=== PATIENT | female | born 1945 | race African-American/Black ===

== ENCOUNTER 2022-03-22 21:33 | Inpatient (IN) | payer MEDICARE, SELFPAY ==
[2022-03-22] VITALS (12 sets, daily range): BP systolic 110–188; BP diastolic 73–133; PULSE 61–109; RESP 12–65; TEMP 36.3; O2SAT 97–100
--- NOTE | ~2022-03-22 | XR_ITS ---
EXAMINATION: XR chest 1V portable DATE: 03/24/2022 05:30 INDICATION: Intubated TECHNIQUE: frontal view of the chest was obtained. COMPARISON: Chest radiograph dated 03/23/2022 FINDINGS: Endotracheal tube tip 1.9 cm above the star. Nasogastric tube with proximal side-port below the gas troesophageal junction and distal tip collimated beyond the inferior margin of the [id number]. Rig ht internal jugular central venous catheter with distal tip in the midsuperior vena cava. Peripheral IV at the left axilla. Persistent consolidation with some air bronchograms in the left lower lung zone. Possible associated small left pleural effusion. Right lung is clear. No pneumothorax or right-sided pleural effusion. Ca rdiomegaly IMPRESSION: 1. Persistent consolidation in the left lower lung zone consistent with atelectasis and/or pneumonia possibly with associated small left pleural effusion. 2. Cardiomegaly. Reviewed, dictated and finalized at location A. IMPRESSION: 1. Persistent consolidation in the left lower lung zone consistent with atelect asis and/or pneumonia possibly with associated small left pleural effusion. 2. Cardiomegaly.
--- NOTE | ~2022-03-22 | XR_ITS ---
EXAMINATION: XR chest 1V portable DATE: 03/26/2022 05:39 INDICATION: Intubated TECHNIQUE: frontal view of the chest was obtained. COMPARISON: Chest radiograph dated 03/25/2022 FINDINGS: Endotracheal tube tip 0.7 cm above the star. Right internal jugular central venous catheter with di stal tip at the caudal superior vena cava. Nasogastric tube extends below the left hemidiaphragm wit h distal tip collimated off the study. Slight increase in opacities at the left lower lung zone and mild residual opacities at the medial ri ght lower lung zone. No pneumothorax or right-sided pleural effusion. Possible left pleural effusion. Cardiomegaly. IMPRESSION: 1. Mild progression in opacities at the bilateral lower lung zones which could represent atelectasis or pneumonia, possibly with associated small left pleural effusion. 2. Cardiomegaly. Reviewed, dictated and finalized at location A.
--- NOTE | ~2022-03-22 | XR_ITS ---
XR chest 1V portable DATE: 04/04/2022 05:53 INDICATION: Respiratory failure TECHNIQUE: Portable AP chest on 04/04/2022 at 0525 hours COMPARISON: 04/03/2022 portable AP chest at 0514 hours FINDINGS: ET tube in satisfactory position 2.7 cm above star. NG tube in stomach. Right internal ju gular central venous catheter tip overlies the proximal superior vena cava. Cardiac megaly. Aortic arch calcification. There is persistent left lower lobe atelectasis and/or consolidation with air bronchograms. Mild pulmonary vascular congestion. There is minimal if any pleural effusion. No pneumothorax. Diffuse osteopenia. IMPRESSION: Cardiomegaly Aortic atherosclerosis Left lower lobe atelectasis and/or consolidation Reviewed, dictated and finalized at location A.
--- NOTE | ~2022-03-22 | XR_ITS ---
EXAMINATION: XR chest 1V portable INDICATION: Cardiac arrest TECHNIQUE: Portable AP chest at 0513 hours COMPARISON: 03/28/2022 FINDINGS: The endotracheal tube ends approximately 2.5 cm above the star. The nasogastric tube is f ollowed as far as the stomach. Its tip is beyond the inferior margin of the radiograph. A right inter nal jugular catheter ends with its tip in the proximal superior vena cava. Cardiomegaly is noted. The re is stable mild pulmonary edema. A small left pleural effusion is unchanged. There is no pneumothor ax. IMPRESSION: 1. Cardiomegaly with stable pulmonary edema. 2. Small left pleural effusion, stable. Reviewed, dictated and finalized at location A.
--- NOTE | ~2022-03-22 | CT_ITS ---
EXAMINATION: CT brain wo con DATE: 03/23/2022 01:34 INDICATION: Status post cardiac arrest TECHNIQUE: Computed tomography (CT) of the head was performed without intravenous contrast. Sagittal and coronal reconstructions were performed. The mA was adjusted according to patient size. Iterative reconstruction technique was employed. The dose-length product was 681.00 mGy-cm. COMPARISON: None FINDINGS: There is prominent intravenous contrast which may be related to prior cardiac catheterization given t he provided history of ST elevation myocardial infarction. There are regions of significantly decreas ed parenchymal attenuation with loss of varner-white matter differentiation in the bilateral occipital lobes, left larger than right consistent with infarcts most likely subacute to chronic. There is smal l region of linear gyral enhancement along the deep aspect of both sides of the sulcus at the left fr ontoparietal region. No acute intracranial hemorrhage or abnormal extra axial fluid collection. Ventr icles are normal and symmetric. No mass/mass effect. The orbits, paranasal sinuses and mastoid air ce lls are normal. IMPRESSION: 1. Small region of gyral enhancement at the left frontoparietal region most likely related to recent cerebral infarction with differential including seizure or migraine, infection in the appropriate cli nical setting or less likely malignancy. 2. Infarcts at the bilateral occipital lobes with degree of decreased attenuation favoring subacute t o chronic. Reviewed, dictated and finalized at location A. IMPRESSION: 1. Small region of gyral enhancement at the left frontoparietal region most lik jerica related to recent cerebral infarction with differential including seizure o r migraine, infection in the appropriate clinical setting or less likely malign jose l. 2. Infarcts at the bilateral occipital lobes with degree of decreased attenuati on favoring subacute to chronic.
--- NOTE | ~2022-03-22 | XR_ITS ---
EXAMINATION: XR chest 1V portable INDICATION: Cardiac arrest TECHNIQUE: Portable AP chest at 0528 hours COMPARISON: 03/31/2022 FINDINGS: The endotracheal tube ends approximately 3.3 cm above the star. The nasogastric tube is f ollowed as far as the stomach. Its tip is beyond the inferior margin of the radiograph. A right inter nal jugular catheter ends with its tip in the proximal superior vena cava. Cardiomegaly is noted. The re are patchy opacities left lung and in the right lung base. There is a small left pleural effusion. No pneumothorax is identified. IMPRESSION: 1. Developing airspace opacities in the left lung and right lung base, consistent with atelectasis ve rsus pneumonia versus pulmonary edema. 2. Cardiomegaly. 3. Small left pleural effusion. Reviewed, dictated and finalized at location A. IMPRESSION: 1. Developing airspace opacities in the left lung and right lung base, consiste nt with atelectasis versus pneumonia versus pulmonary edema. 2. Cardiomegaly. 3. Small left pleural effusion.
--- NOTE | ~2022-03-22 | CT_ITS ---
EXAMINATION: CT brain wo con INDICATION: Anoxic brain injury, cardiac arrest COMPARISON: 03/23/2022 TECHNIQUE: Standard unenhanced head CT. The dose-length product (DLP) was 605.33 mGy-cm. The mA was a djusted according to patient size. Iterative reconstruction technique was employed. FINDINGS: There is no acute intraparenchymal hemorrhage. No evidence of mass lesion. Bilateral occipi griselda lobe infarcts are again noted, left greater than right. There is persistent varner-white differenti ation in parts of the brain with some loss of varner-white differentiation and others. Intracranial giovanny cified cerebral atherosclerosis is noted. There are no extra-axial collections. There is no mass effe ct or midline shift. Changes in the globes are likely from ocular lens surgery. The visualized sinuse s and mastoid air cells are well aerated. IMPRESSION: 1. Some areas with loss of varner-white differentiation suggestive of toxic brain injury. 2. Bilateral occipital lobe infarcts, likely subacute. Reviewed, dictated and finalized at location A.
--- NOTE | ~2022-03-22 | XR_ITS ---
EXAMINATION: XR chest port-a-cath/central DATE: 03/23/2022 03:38 INDICATION: Right internal jugular central venous catheter placement TECHNIQUE: frontal view of the chest was obtained. COMPARISON: Chest radiograph dated 03/22/[address] dated 03/23/2022 FINDINGS: New right internal jugular central venous catheter with distal tip at the caudal superior vena cava. Endotracheal tube tip 1.9 cm above the star. Nasogastric tube with nasogastric tube in the body of the stomach and distal tip collimated off the study. Peripheral IV at the left axilla. Persistent mild decreased left lung volume with opacities at the left lower and medial aspect of the left mid lung zones. No pleural effusion or pneumothorax. Cardiomegaly. Ectatic thoracic aorta. Enlar gement of the central pulmonary arteries consistent with pulmonary arterial hypertension. Visualized bones and soft tissues are unremarkable. IMPRESSION: 1. Lines and tubes in expected positions. 2. Decreased left lung volume with opacities in the mid and lower lung zones which could represent at electasis, aspiration or pneumonia. 3. Cardiomegaly and ectatic aorta. 4. Enlargement of the central pulmonary arteries consistent with pulmonary arterial hypertension. Reviewed, dictated and finalized at location A. IMPRESSION: 1. Lines and tubes in expected positions. 2. Decreased left lung volume with opacities in the mid and lower lung zones wh ich could represent atelectasis, aspiration or pneumonia. 3. Cardiomegaly and ectatic aorta. 4. Enlargement of the central pulmonary arteries consistent with pulmonary awa rial hypertension.
--- NOTE | ~2022-03-22 | XR_ITS ---
EXAMINATION: XR chest 1V portable DATE: 03/25/2022 05:27 INDICATION: Intubated TECHNIQUE: frontal view of the chest was obtained. COMPARISON: Chest radiograph dated 03/24/22 FINDINGS: Endotracheal tube tip 1.9 cm above the star. Right internal jugular central venous catheter with di stal tip at the midsuperior vena cava. Nasogastric tube with proximal side-port in the stomach and di stal tip collimated below the inferior margin of the [id number]. No significant change attending for differences in technique in airspace opacity left lower lung zone . No pneumothorax or definitive pleural effusion. Mild cardiomegaly. IMPRESSION: 1. Persistent airspace opacities in the left lower lung zone which could represent atelectasis or pne umonia. 2. Mild cardiomegaly. Reviewed, dictated and finalized at location A. IMPRESSION: 1. Persistent airspace opacities in the left lower lung zone which could repres ent atelectasis or pneumonia. 2. Mild cardiomegaly.
--- NOTE | ~2022-03-22 | XR_ITS ---
EXAM: XR abdomen NG/feed tube insert HISTORY: OG tube placement COMPARISON: None available FINDINGS: NG tube tip and side port project over the stomach. Normal partially visualized bowel gas pattern. No acute osseous abnormality. IMPRESSION: NG tube, in good position. Reviewed, dictated and finalized at location K. IMPRESSION: NG tube, in good position.
--- NOTE | ~2022-03-22 | XR_ITS ---
r EXAMINATION: XR chest ET placement Exam Date/Time: 03/22/2022 21:40 CDT CLINICAL HISTORY: stemi Comparison: None available. RESULT: Lines, tubes, and devices: Endotracheal tube terminating 1.2 cm above the star. An NG tube termina danielle off the inferior portion of the image. Lungs and pleura: Suboptimal positioning with rotation and low lung volumes. Cardiomediastinal silhouette: Mild aortic ectasia and aortic knob calcification. Heart size normal g iven technique. Other: No acute osseous or upper abdominal finding. IMPRESSION: Well-positioned endotracheal tube. No acute cardiopulmonary process. Reviewed, dictated and finalized at location K.
--- NOTE | ~2022-03-22 | CT_ITS ---
EXAMINATION:CT diagnostic chest wo con DATE: 03/23/2022 01:34 INDICATION: Cardiac arrest. TECHNIQUE: Computed tomography (CT) of the chest was performed without intravenous contrast. Automate d exposure control and iterative reconstruction technique were employed. The dose-length product (DLP ) was 633.14 mGy-cm. COMPARISON: None. FINDINGS: The lungs demonstrate mild atelectasis. No pleural effusion. The thyroid is enlarged. There are nodules in the thyroid measuring up to 10 mm, likely not clinically significant. The endotrachea l tube tip is in expected position above the star. The nasogastric tube tip is in the stomach. Card iomegaly is noted. There are coronary artery calcifications. No pericardial effusion. The central pul monary arteries are enlarged, consistent with pulmonary arterial hypertension. There is ectasia of as cending aorta measuring 4.0 cm. There are cysts in the liver measuring up to 12 mm. There are gallsto grisel in the gallbladder, which is normal in size. There is fat stranding around the pancreas, some of which is high in attenuation consistent with hemorrhage. There is a small volume of hemoperitoneum ad jacent to the spleen. There is subcutaneous fat stranding superficial to the sternum, consistent with hematoma. There is a nondisplaced fracture of the body of the sternum. There are fractures of right 5th and 6th ribs. There is mild thoracic spondylosis. IMPRESSION: 1. Acute fractures of the sternum and right fifth and sixth ribs. 2. Small volume of acute abdominal hemorrhage. Reviewed, dictated and finalized at location D.
--- NOTE | ~2022-03-22 | XR_ITS ---
EXAMINATION: XR chest 1V portable INDICATION: Cardiac arrest, respiratory failure TECHNIQUE: Portable AP chest at 0507 hours COMPARISON: 03/27/2022 FINDINGS: The endotracheal tube ends approximately 2.9 cm above the star. The nasogastric tube is f ollowed as far as the stomach. Its tip is beyond the inferior margin of the radiograph. A right inter nal jugular central venous catheter ends with its tip in the proximal superior vena cava. Cardiomegal y is noted. Mild pulmonary edema has improved. There is a small left pleural effusion. IMPRESSION: 1. Cardiomegaly with improving pulmonary edema. 2. Small left pleural effusion. Reviewed, dictated and finalized at location A.
--- NOTE | ~2022-03-22 | XR_ITS ---
EXAMINATION: XR chest 1V portable INDICATION: Cardiac arrest TECHNIQUE: Portable AP chest at 0512 hours COMPARISON: 03/30/2022 FINDINGS: The endotracheal tube ends approximately 4.4 cm above the star. The nasogastric tube is f ollowed as far as the stomach. Its tip is beyond the inferior margin of the radiograph. A right inter nal jugular catheter ends with its tip in the superior vena cava. A small left pleural effusion is un changed. Cardiomegaly is noted. Pulmonary edema has improved. There is no pneumothorax. There are min imal left basilar airspace opacities. IMPRESSION: 1. Cardiomegaly with improved pulmonary edema. 2. Small left pleural effusion. Reviewed, dictated and finalized at location A.
--- NOTE | ~2022-03-22 | XR_ITS ---
EXAMINATION: XR chest 1V portable INDICATION: Acute respiratory failure, cardiac arrest TECHNIQUE: Portable AP chest at 0510 hours COMPARISON: 03/26/2022 FINDINGS: The endotracheal tube ends approximately 9 mm above the star. The nasogastric tube is fol lowed as far as the stomach. Its tip is beyond the inferior margin of the radiograph. A right interna l jugular catheter ends with its tip in the distal superior vena cava. There is mild diffuse intersti tial pattern. Cardiomegaly is noted. There is no pneumothorax. A small left pleural effusion is prese nt. IMPRESSION: 1. Cardiomegaly with mild pulmonary edema. 2. Small left pleural effusion. Reviewed, dictated and finalized at location A.
--- NOTE | ~2022-03-22 | XR_ITS ---
EXAMINATION: XR chest 1V portable INDICATION: Cardiac arrest TECHNIQUE: Portable AP chest at 0509 hours COMPARISON: 03/29/2022 FINDINGS: The endotracheal tube ends approximately 2.5 cm above the star. The nasogastric tube is i n the stomach. The proximal side port projects just below the gastroesophageal junction. A right inte rnal jugular catheter ends with its tip in the superior vena cava. There is stable cardiomegaly. A sm all left pleural effusion is stable. There is no pneumothorax. Mild pulmonary edema is unchanged. IMPRESSION: 1. Cardiomegaly with stable mild pulmonary edema. 2. Small left pleural effusion. Reviewed, dictated and finalized at location A.
--- NOTE | ~2022-03-22 | XR_ITS ---
XR chest 1V portable DATE: 04/03/2022 05:25 INDICATION: Respiratory failure TECHNIQUE: Portable AP chest on 04/03/2022 at 0514 hours COMPARISON: 04/02/2022 portable AP chest at 0520 hours FINDINGS: ET tube 2.4 cm above star. Right internal jugular central venous catheter tip overlies [place] perior vena cava. NG tube in stomach. Cardiac megaly. Aortic calcification. Cardiomegaly. There is prominent left lower lobe atelectasis osseous or consolidation, with increased retrocardiac density and left lower lobe air bronchograms. Mild infiltrate or atelectasis in the right lower lung. Diffuse osteopenia. Scoliosis and degenerative change of the thoracic spine. IMPRESSION: Left lower lobe atelectasis and/or consolidation Mild infiltrate or atelectasis in the right lower lung Cardiomegaly, aortic atherosclerosis ET and NG tubes in satisfactory position Reviewed, dictated and finalized at location A.
--- NOTE | ~2022-03-22 | US_ITS ---
EXAMINATION: US venous doppler UE RT DATE: 03/29/2022 09:05 INDICATION: Right upper extremity swelling TECHNIQUE: Grayscale ultrasound images without and with compression and Doppler ultrasound images of the right upper extremity veins were obtained. COMPARISON: None. FINDINGS: The right internal jugular vein, subclavian vein, axillary vein, brachial veins, basilic vein, cephal ic vein, radial vein, and ulnar vein are patent. The catheter is noted in the right internal jugular vein. IMPRESSION: 1. No evidence of deep venous thrombosis. Reviewed, dictated and finalized at location A.
--- NOTE | ~2022-03-22 | CT_ITS ---
EXAMINATION: CT abdomen pelvis wo con DATE: 03/26/2022 15:39 INDICATION: Hemoperitoneum. TECHNIQUE: Computed tomography (CT) of the abdomen and pelvis was performed without intravenous contr ast. Automated exposure control and iterative reconstruction technique were employed. The dose-length product was 1484.45 mGy-cm. COMPARISON: Chest CT 03/23/2022 FINDINGS: The visualized portions of the lung bases demonstrate airspace opacities and volume loss in the lower lobes, likely at least predominantly atelectasis. There are small pleural effusions. There is mild atelectasis in lingula. Cardiomegaly is noted. There are coronary artery calcifications. No pericardial effusion. There is a 1.3 cm cyst in the liver. There are gallstones in the gallbladder, w hich is normal in size. The spleen, pancreas, adrenal glands, and kidneys are normal. There are no di lated loops of bowel. The appendix is normal. The nasogastric tube tip is in the stomach. There are n o pathologically enlarged lymph nodes. There is trace ascites. There is a small hematoma superficial to right common femoral artery. There is mild thoracic and lumbar spondylosis. Again seen are fractur es of right fifth and sixth ribs. IMPRESSION: 1. Small pleural effusions. 2. Airspace opacities in the lower lobes with volume loss, likely predominantly atelectasis. Pneumoni a cannot be excluded. 3. Acute fractures of right fifth and sixth ribs again seen. Reviewed, dictated and finalized at location A. IMPRESSION: 1. Small pleural effusions. 2. Airspace opacities in the lower lobes with volume loss, likely predominantly atelectasis. Pneumonia cannot be excluded. 3. Acute fractures of right fifth and sixth ribs again seen.
--- NOTE | ~2022-03-22 | XR_ITS ---
EXAMINATION: XR chest 1V portable INDICATION: Respiratory failure TECHNIQUE: Portable AP chest at 0520 hours COMPARISON: 04/01/2022 FINDINGS: The endotracheal tube ends approximately 3.5 cm above the star. The nasogastric tube is f ollowed as far as the stomach. Its tip is beyond the inferior margin of the radiograph. A right inter nal jugular catheter ends with its tip in the proximal superior vena cava. Cardiomegaly is noted. Bib asilar airspace opacities persist without significant change. There is no pneumothorax. A small left pleural effusion is stable. IMPRESSION: 1. Stable bibasilar airspace opacities, consistent with atelectasis versus pneumonia versus pulmonary edema. 2. Cardiomegaly. 3. Stable small left pleural effusion. Reviewed, dictated and finalized at location A. IMPRESSION: 1. Stable bibasilar airspace opacities, consistent with atelectasis versus pneu monia versus pulmonary edema. 2. Cardiomegaly. 3. Stable small left pleural effusion.
--- NOTE | ~2022-03-22 | US_ITS ---
EXAMINATION: US renal BI DATE: 03/23/2022 11:28 INDICATION: Acute kidney injury. TECHNIQUE: Multiple ultrasound grayscale images of the kidneys were obtained. COMPARISON: Chest CT 03/23/2022 FINDINGS: The right kidney measures 10.0 x 4.1 x 5.3 cm. The left kidney measures 10.1 x 5.1 x 6.0 cm. The kidn eys demonstrate normal parenchymal echogenicity. There is no hydronephrosis. The bladder is not diste nded and not visualized. There are gallstones in the gallbladder, which is normal in size. IMPRESSION: 1. Normal kidneys. No hydronephrosis. Reviewed, dictated and finalized at location B.
--- NOTE | 2022-03-22 21:30 | PC.NURSE ---
2130 pt. to ed via ems w/ cc cardiac arrest. pt. intubated w/ a 7.5 ET tube measuring at 29. 2130 pt. og placed measuring at 60. 2159 pt. given 4000 units heprin IVP VORB ERP Johnathan and 300 mg rectal ASA. 2200 pt. ET tube pulled 2 cm and measuring 27 at the teeth. Og remained intact.
--- NOTE | 2022-03-22 21:35 | ECG_ITS ---
Measurements Intervals [place] Rate: 72 P: MO: 0 QRS: 31 QRSD: 98 T: 141 QT: 475 QTc: 522 Interpretive Statements ATRIAL FIBRILLATION VENTRICULAR PREMATURE COMPLEX LEFT VENTRICULAR HYPERTROPHY WITH ST-T CHANGE ST-T WAVE ABNORMALITY IN ANTEROLATERAL LEADS- CONSIDER ISCHEMIA BASELINE ARTIFACT- I, III ABNORMAL ECG Electronically Signed On 03-23-2022 6:08:26 CDT by Juvenal Lange D.O.
[2022-03-22 21:55] LABS: Basophils Absolute Auto 0.1 K/mm3 (0.0-0.1); Basophils Percent Auto 0.4 % (0.2-1.2); Eosinophils Absolute Auto 0.1 K/mm3 (0-0.3); Eosinophils Percent Auto 0.5 % (0-4.4); Hematocrit 35.7 % (37.0-47.0); Hemoglobin 10.3 g/dL (12.0-15.0); Immature Granulocyte Absolute 0.88 K/mm3 (0.00-0.031); Immature Granulocyte Percent A 6.4 % (0-0.5); Lymphocytes Absolute Auto 4.51 K/mm3 (0.9-3.2); Lymphocytes Percent Auto 32.9 % (18.3-44.2); Mean Corpuscular HGB Conc 28.9 g/dl (32-36); Mean Corpuscular Hemoglobin 21.3 pg (26-34); Mean Corpuscular Volume 73.8 fl (80-100); Mean Platelet Volume 9.9 fl (7.4-10.4); Monocytes Absolute Auto 0.5 K/mm3 (0.1-0.6); Monocytes Percent Auto 3.3 % (2.6-8.5); Neutrophils Absolute Auto 7.7 K/mm3 (1.3-6.7); Neutrophils Percent Auto 56.5 % (45.5-73.1); Platelet Count Result 318 k/mm3 (150-375); Red Blood Count 4.84 M/mm3 (4.2-5.4); Red Cell Distribution Width 16.8 % (11.5-14.5); White Blood Count 13.7 K/mm3 (4.5-10.0)
--- NOTE | 2022-03-22 21:57 | ED.CPR ---
HPI - CPR General Chief Complaint: Cardiac Arrest/CPR Stated Complaint: cardiac arrest History of Present Illness HPI narrative: Patient is a 76-year-old female who presents ER status post cardiac arrest. Patient called her son around 8:11 PM. She told him that she was having chest pain. He came to the house. She did not want to go to the hospital and waited out. She continues to have chest pain. She then went upstairs to use the toilet and then told her son she thought she was going to pass out. Patient collapsed on the ground. She did not have a pulse. 911 was called at 9 PM and an ambulance was dispatched. Bystander CPR was performed at the direction of dispatch. EMS arrived and compressions continued. She was intubated with 7.5 ET tube. Intraosseous access was obtained in the right humerus. Patient was found to be in ventricular fibrillation received defibrillation. She then went into PEA. Patient received 2 rounds of epinephrine. She was then found to have ROSC and capnography improved. According to the son patient has been having dyspnea on exertion for the last 2 months. She was attempting to transfer doctors because she did not like her current primary doctor. He reports she does not have history of known coronary disease. She does have hypertension. She has spotty compliance with medications due to feeling that she experiences side effects from medications. Related Data Home Medications Medication Instructions Recorded Confirmed diltiazem HCl 180 mg PO DAILY 03/23/22 03/23/22 losartan 100 mg PO DAILY 03/23/22 03/23/22 metoprolol succinate 100 mg PO DAILY 03/23/22 03/23/22 Allergies Allergy/AdvReac Type Severity Reaction Status Date / Time aspirin Allergy Hives Verified 03/23/22 00:29 ibuprofen Allergy Hives Verified 03/23/22 00:29 Penicillins Allergy Unknown Verified 03/23/22 00:29 Review of Systems Review of Systems: ROS unobtainable: Yes unobtainable due to medical condition [facility] Past Medical History Medical History (Updated 03/23/22 @ 06:45 by Bimal Mann MD) Hypertension Surgical History Surgical History (Updated 03/22/22 @ 22:06 by Bimal Mann MD) Surgical history unknown Family History Family History (Updated 03/23/22 @ 00:43 by Giselle Tavarez RN) Other Unknown family medical history Social History Social History (Updated 03/22/22 @ 22:06 by Bimal Mann MD) Smoking status: Never smoker Alcohol intake: never Substance use: never Spiritual care concerns: No Exam Narrative: GENERAL: Unresponsive, obese. HEAD: Normocephalic, atraumatic. EYES: Pupils equal round and mid dilated. Not reactive to light. No spontaneous movement of the eyes. ENT: Mucous membranes moist. NECK: Supple. CHEST: Clear to auscultation. No respiratory distress. HEART: Irregular regular rate and rhythm. Normal peripheral pulses. ABDOMEN: Soft, nontender, nondistended. EXTREMITIES: Normal range of motion. No edema. SKIN: Warm, dry, no rash. NEURO: GCS 3 Course Reevaluation(s) Reevaluation #1: STEMI activated based on prehospital EKG which showed ST elevation V1 through V4 with T wave inversions V5 and V6. Discussed case with Dr. aPlma who is in route. Date: 03/22/22 Time: 21:28 Reevaluation #2: Patient's blood pressure climbing. Becoming more responsive. Will start on propofol. Cath team at bedside to take patient. Family has been back to see the patient. Date: 03/22/22 Time: 22:09 Vital Signs Vital signs: Vital Signs Pulse Rate 81 03/22/22 21:34 Respiratory Rate 14 03/22/22 21:34 Blood Pressure 158/133 H 03/22/22 21:34 Pulse Oximetry 97 03/22/22 21:34 Temperature 91.5 F L 03/23/22 06:00 Pulse Rate 55 L 03/23/22 06:00 Respiratory Rate 20 03/23/22 06:00 Blood Pressure 141/82 H 03/23/22 06:00 Pulse Oximetry 98 03/23/22 06:00 MDM - Cardiac Arrest/CPR Lab Data Result diagrams: 03/23/22 03:35 0
[2022-03-22 22:06] LABS: Platelet Estimate Adequate (Adequate)
[2022-03-22 22:07] LABS: Anisocytosis 1+ (NORMAL); Burr Cells 1+ (NORMAL); INR 1.3; Ovalocytes 1+ (NORMAL)
[2022-03-22] MEDS: PROPOFOL IV EMULSION 100 ML 3.41 MG IV CONT (22:12)
[2022-03-22 22:17] LABS: LDL Cholesterol Direct 48 mg/dL
[2022-03-22 22:20] LABS: Troponin I < 0.012 ng/mL (0.000-0.034)
[2022-03-22 22:21] LABS: Alanine Aminotransferase 98 U/L (4-35); Albumin Level 3.6 g/dL (3.5-5.1); Alkaline Phosphatase 116 U/L (38-126); Anion Gap 16 mmol/L (8-16); Aspartate Amino Transferase 158 U/L (14-36); Bilirubin,Total 0.1 mg/dL (0.2-1.3); Blood Urea Nitrogen 17 mg/dL (7-17); Calcium 7.7 mg/dL (8.4-10.2); Carbon Dioxide 16 mmol/L (22-30); Chloride 107 mmol/L (98-107); Cholesterol 111 mg/dL (0-200); Estimated Glomerular Filt Rate 48; Glucose 291 mg/dL (65-110); HDL Direct 27 mg/dL; Potassium 3.8 mmol/L (3.4-5.0); Sodium 139 mmol/L (137-145); Triglycerides 117 mg/dL (<150)
--- NOTE | 2022-03-22 22:22 | PM.IMHP ---
H&P: HPI History of Present Illness Date/Time: 03/22/22 22:22 Chief Complaint: Out of hospital ventricular fibrillation ST-elevation PR Narrative: this is a 76-year-old woman who I was called earlier this evening because of concern regarding acute myocardial infarction. The patient apparently was brought in from home by ambulance. She was according to the chart at home and was complaining of some chest earlier in the evening. She did not wish to come to the hospital. She then collapsed in her home and had no pulse and was not breathing. She did receive some bystander CPR. Upon arrival of EMS she was found to be in ventricular fibrillation. She was resuscitated back into ineffective rhythm and was intubated in the field. I do not have any immediate information regarding how long she was without a pulse/ circulation. Her electrocardiogram appears to show anterior ST elevation and she in that setting is being brought for Emergent angiography. I have no information regarding past medical history in this individual at this time Review of Systems Review of Systems: ROS unobtainable: Yes unobtainable due to endotracheal tube and unobtainable due to medical condition [facility] Past Medical History Medical History (Updated 03/22/22 @ 22:06 by Bimal Mann MD) Hypertension Surgical History Surgical History (Updated 03/22/22 @ 22:06 by Bimal Mann MD) Surgical history unknown Social History Social History (Updated 03/22/22 @ 22:06 by Bimal Mann MD) Smoking status: Never smoker Meds Vital Signs Vital Signs - 24 hr 03/22/22 21:44 03/22/22 21:45 03/22/22 21:46 Temperature 36.3 C L Pulse Rate 80 79 72 Respiratory Rate 21 H 19 12 Blood Pressure 110/73 Pulse Oximetry 97 97 100 03/22/22 21:58 03/22/22 22:00 03/22/22 22:02 Temperature Pulse Rate 61 86 85 Respiratory Rate 21 H 21 H Blood Pressure 179/120 H Pulse Oximetry 100 100 100 03/22/22 22:03 03/22/22 22:07 03/22/22 22:12 Temperature Pulse Rate 86 91 90 Respiratory Rate 21 H 21 H 20 Blood Pressure 183/120 H 188/125 H 182/127 H Pulse Oximetry 100 100 100 Exam Const: Other: intubated elderly lady HENMT: Mouth: Yes moist mucous membranes Eyes: Sclera: sclerae normal Neck: Neck: supple Other: no carotid bruit Resp: Other: few scattered Cardio: Rate: regular rate Rhythm: regular rhythm Other: PMI difficult to palpate no obvious murmur or gallop GI: GI Palp: Yes Soft to palpation Auscultation: normal bowel sounds Skin: General skin exam: normal color Neuro: Other: Obtunded Extrem: General: normal to inspection H&P: Results Labs Labs: Short CBC 03/22/22 Range/Units 21:49 WBC 13.7 H (4.5-10.0) K/mm3 Hgb 10.3 L (12.0-15.0) g/dL Hct 35.7 L (37.0-47.0) % Plt Count 318 (150-375) k/mm3 BMP 03/22/22 21:49 Sodium 139 Potassium 3.8 Chloride 107 Carbon Dioxide 16 L BUN 17 Creatinine 1.30 H Glucose 291 H Calcium 7.7 L Cardiac Enzymes 03/22/22 Range/Units 21:49 Troponin I < 0.012 (0.000-0.034) ng/mL Liver Function 03/22/22 Range/Units 21:49 Total Bilirubin 0.1 L (0.2-1.3) mg/dL AST 158 H (14-36) U/L ALT 98 H (4-35) U/L Alkaline Phosphatase 116 (38-126) U/L Albumin 3.6 (3.5-5.1) g/dL Assessment and Plan Additional Plan out of hospital ventricular fibrillation with ECG following resuscitation concerning for acute anterior wall PR. Patient is being brought for emergency angiography and if appropriate revascularization. Jackson Palma MD [facility]
--- NOTE | 2022-03-22 23:38 | WPDCARDPROC ---
Cardiac Cath Procedure Note Date of procedure:: 03/22/22 Performing physician:: Jackson Palma MD Indication:: ventricular fibrillation ST-elevation ND Brief clinical history:: this is a 76-year-old woman who presented to the emergency room after experiencing some chest pain at her residence followed by loss of consciousness and bystander CPR. Upon arrival of EMS she was in ventricular fibrillation. The patient is intubated in the field and resuscitated into spontaneous circulation. ECG following that appeared to show anterior ST elevation. Patient has had no recent medical care and no further records are available or history is available as she is intubated and on mechanical ventilator support no Procedure Procedure performed:: emergency coronary angiogram emergency PCI left ventriculogram Sedation/Medication given:: patient was on intravenous propofol from the emergency room case start time 10:31 p.m. case end time 11:26 pm Access site:: right femoral artery Estimated blood loss:: 50 cc Procedure note:: patient was brought to the cardiac cathode builder in the emergent setting described above. The right femoral triangle was prepared and draped in the normal fashion. Anesthesia was given with 1% lidocaine infiltrated locally. The patient was sedated with propofol and on mechanical ventilator support. Using the modified Seldinger technique a 6 Japanese sheath was placed into the right femoral artery. I then used a 5 Japanese FL4 diagnostic catheter to engage and inject the left coronary artery in multiple projections. Engaging the right coronary proved to be difficult. I used a 5 Japanese JR4, WRP AR modified catheter unsuccessfully. 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 Following this the cineangiograms were then reviewed and PCI of the LAD was recommended and carried out as detailed below. Prior to this the patient was anticoagulated with a bolus and infusion of Angiomax. She received 180 mg of Brilinta down the NG tube. She had received aspirin in the emergency room. Following attempted PCI as detailed below the guiding catheter and wires were removed from the patient and a 5 Japanese angled pigtail catheter was used to perform a left ventriculogram in the DÍAZ projection and to document left-sided central hemodynamics. The case was then terminated the sheath was sutured into position she was taken to the ICU for recovery. Findings:: Hemodynamics: Central aortic pressure is 146 over 76 left ventricle 1465 end-diastolic pressure 18 there is no gradient on pullback across the aortic valve. Left ventricle: The left ventricle is normal in size the anteroapical segment is akinetic the remainder of the LV contracts well the global ejection fraction I would visually estimate to be 45-50%. The left main coronary artery has a superior takeoff it is very large and widely patent the left anterior descending is a large caliber vessel it is extraordinarily tortuous with a 360 degree turn proximally and then multiple tortuous bends in the remainder of the LAD and a 100% acute occlusion is found weight down near the apical terminal portion of the vessel. This appears to be the culprit for the acute ND. the circumflex is a moderate caliber vessel giving rise to the marginal branches it is codominant and free of significant disease. 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 Intervention: I engaged the left coronary artery with a CLS 3.5 guiding catheter. I attempted to wire the LAD with a Switch Coupler 150 wire was unable to track the wire through the proximal tortuosity. I then used a 0.014 BMW wire and with significant challenge was able to advance the wire through the proximal 360 degree bend around multiple tortuous bends and down to the target lesion. The BMW wire advanced just a short distance across the
[2022-03-23] VITALS (48 sets, daily range): BP systolic 134–186; BP diastolic 78–129; PULSE 23–82; RESP 18–25; TEMP 30.5–35.4; O2SAT 95–100; BMI 35.6; BMI 35.5
--- NOTE | 2022-03-23 00:05 | ADMGEN ---
This patient, Lata Warren, was admitted to Intensive Care Unit-3. Patient/family oriented to hospital policies and general routines including ID bracelet, bed and alarms, visiting hours, pain management, procedures, bathroom and other care routines, personal items, smoking policy, room service/diet, and visiting hours. Information on how to activate the Rapid Response Team has been discussed. Patient/Family are encouraged to report perceived risks to care and to ask questions if they do not understand what they are told or what they should do.
[2022-03-23 00:40] LABS: Glucose Point of Care 335 mg/dl (65-105)
[2022-03-23 01:35] LABS: Creatine Kinase 170 U/L (30-135)
[2022-03-23 01:40] LABS: Lactic Acid Reflex 5.2 mmol/L (0.7-2.0)
[2022-03-23 03:29] LABS: Alveolar/Arterial O2 Gradient 181.9 mmHg; Base Excess ABG -1.1 mEq/l (+/-2.0); Carboxyhemoglobin 0.3 % THb (0-2.0); Fractional Inspired Oxygen 50 %; HCO3 ABG 23.4 mEq/l (22.0-26.0); Methemoglobin ABG 0.3 %THb (0-1.5); Modified Allen's Test Unable to perform; Oxygen Saturation ABG 98.8 % (95.0-100.0); Oxyhemoglobin 97.8 % THb (90.0-100.0); PCO2 ABG 38.2 mmHg (35.0-45.0); PO2 ABG 140.7 mmHg (80.0-100.0); PO2 FiO2 Ratio Arterial Blood 2.81 %; Reduced Hemoglobin 1.6 %THb (0-5.0); Site Drawn LEFT RADIAL; Total Hemoglobin 12.2 g/dL (12.0-18.0); pH ABG 7.405 (7.350-7.450)
[2022-03-23 03:30] LABS: Arterial Blood Gas PEEP 5 cmH2O; Arterial Blood Gas Tidal Volume 450 ml; Arterial Blood Gas Vent Mode CMV; Arterial Blood Gas Ventilator rate 20 /MIN; Device VENTILATOR
--- NOTE | 2022-03-23 03:33 | P.PCNBED_ITS ---
Procedures Central Line Placement Right IJ: Central Line Date: 03/23/22 Central Line Time: 03:33 Performed Emergently - Given emergent patient condition, temporal constraints may have precluded informed consent.: Yes Time Out Performed: Yes Patient Position: trendelenburg Patient placed on monitor/pulse ox: Yes Provider Prep: mask, sterile gown, sterile gloves, Max. sterile barrier precautions and cap Central line prep: 2% Chlorhexidine scrub Local anesthesia used: lidocaine 1% Amount of anesthesia used (ml): 3 Sterile US Technique with sterile gel/sterile probe covers: Yes Central line lumen inserted: triple Austrian: 7 Length (cm): 16 Post Procedure: sutured in place, good blood return, all ports aspirated, flushed, capped and aseptic technique maintained throughout procedure Post procedure x-ray: tip of catheter in good position Patient tolerated procedure: well Complications: none
[2022-03-23 03:49] LABS: Hemoglobin 11.2 g/dL (12.0-15.0); Mean Corpuscular HGB Conc 29.5 g/dl (32-36); Mean Corpuscular Volume 71.2 fl (80-100); Mean Platelet Volume 9.7 fl (7.4-10.4); Platelet Count Result 347 k/mm3 (150-375); Red Blood Count 5.34 M/mm3 (4.2-5.4); Red Cell Distribution Width 16.8 % (11.5-14.5); White Blood Count 15.1 K/mm3 (4.5-10.0)
[2022-03-23] MEDS: levETIRAcetam 1000MG/NACL100ML 1,000 MG/100 ML BAG 400 MG IVPB ×2 (03:53→15:41)
[2022-03-23 04:01] LABS: INR 1.6; Prothrombin Time 18.3 Seconds (11.1-14.7)
[2022-03-23 04:03] LABS: Partial Thromboplastin Time 60.1 SECONDS (22.3-36.8)
[2022-03-23 04:10] LABS: Amphetamine Screen Urine Negative (Negative); Barbiturate Screen Urine Negative (Negative); Benzodiazepines Screen Urine Negative (Negative); Cannabinoid Screen Urine Negative (Negative); Cocaine Screen Urine Negative (Negative); Methadone Screen Urine Negative (Negative); Opiate Screen Urine Negative (Negative); Phencyclidine Screen Urine Negative (Negative)
[2022-03-23 04:14] LABS: Anion Gap 11 mmol/L (8-16); Blood Urea Nitrogen 19 mg/dL (7-17); Calcium 8.2 mg/dL (8.4-10.2); Carbon Dioxide 26 mmol/L (22-30); Chloride 103 mmol/L (98-107); Cholesterol 137 mg/dL (0-200); Creatine Kinase 257 U/L (30-135); Estimated CRCL calculation 40 ml/min; Estimated Glomerular Filt Rate 53; Glucose 269 mg/dL (65-110); HDL Direct 42 mg/dL; Potassium 3.7 mmol/L (3.4-5.0); Sodium 140 mmol/L (137-145); Triglycerides 95 mg/dL (<150)
[2022-03-23 04:22] LABS: Reflex Lactic Acid Yes or No Add Lactic
[2022-03-23 04:25] LABS: LDL Cholesterol Direct 53 mg/dL
[2022-03-23 04:28] LABS: Troponin I 0.077 ng/mL (0.000-0.034)
[2022-03-23] MEDS: INSULIN ASPART (*BKC) 100 UNITS/ML SUB-Q (04:50)
[2022-03-23] MEDS: SODIUM CHLORIDE 0.9% IV 1,000 ML 500 ML IV CONT (04:51)
--- NOTE | 2022-03-23 05:11 | ECG_ITS ---
Measurements Intervals [place] Rate: 82 P: MT: 0 QRS: -6 QRSD: 110 T: 80 QT: 450 QTc: 526 Interpretive Statements ATRIAL FIBRILLATION VENTRICULAR PREMATURE COMPLEXES DELAYED PRECORDIAL R/S TRANSITION LEFT VENTRICULAR HYPERTROPHY BORDERLINE T WAVE ABNORMALITY- LAT/HIGH LAT LEADS BASELINE ARTIFACT- I, II, III ABNORMAL ECG Electronically Signed On 03-23-2022 6:12:31 CDT by Juvenal Lange D.O.
--- NOTE | 2022-03-23 08:00 | ECHO_ITS ---
Patient Info Name: Lata Esteves Young Age: 76 years : 1945 Gender: Female Ht: 62 in Wt: 250 lbs BSA: 2.30 m2 HR: 50 bpm BP: 149 / 81 mmHg Exam Date: 03/23/2022 9:32 AM Exam Location: [facility] Patient Status: Inpatient Admit Date: 03/22/2022 Staff Ordering Physician: Albino Cornejo MD Outpatient Program Coordinator: Gamaliel Lopez, KENNY, RT Attending Provider: Jackson Palma MD Exam Type: CA echo doppler color flow Study Info Indications I21.3 - ST elevation (STEMI) myocardial infarction of unspecified site Complete two-dimensional, color flow and Doppler transthoracic echocardiogram is performed. Strain analysis performed. Summary 1. Complete two-dimensional, color flow and Doppler transthoracic echocardiogram is performed. 2. Borderline LV enlargement, moderate LVH. Moderate LV systolic dysfunction, ejection fraction approximately 40%. Diastolic dysfunction is present. Moderate left atrial enlargement. Mild right atrial enlargement. Normal mitral valve structure, mild mitral regurgitation. Mild aortic valve sclerosis, mild aortic stenosis, valve area 1.7 cm2. Mild tricuspid regurgitation, moderate pulmonary hypertension, RVSP 48 mmHg. Left Ventricle Left ventricular chamber dimension is normal. Left ventricular systolic function is moderately reduced, estimated at 40-45%. There is moderately increased left ventricular wall thickness. Left ventricular septal wall motion is normal. The left ventricular diastolic function is abnormal. Right Ventricle Right ventricular chamber dimension is normal. Right ventricular systolic function is normal. Left Atria Left atrial chamber dimension is moderately enlarged. Right Atria Right atrial chamber dimension is mildly enlarged. Aortic Valve There is mild aortic valve sclerosis. There is mild aortic valve stenosis with a peak velocity of 176 cm/s, mean gradient of 6 mmHg, and aortic valve area of 1.7 cm2. There is no aortic valve regurgitation. Pulmonic Valve The pulmonic valve is normal. There is trace pulmonic regurgitation. Mitral Valve The mitral valve has normal leaflets. There is no mitral valve stenosis. There is mild mitral valve regurgitation. Tricuspid Valve The tricuspid valve leaflets are normal. There is mild tricuspid valve regurgitation. Moderate pulmonary hypertension, estimated pulmonary arterial systolic pressure is 48 mmHg. Pericardium/Pleural The pericardium appears normal. There is no pericardial effusion. Inferior Vena Cava Dilated inferior vena cava with <50% collapse upon inspiration consistent with elevated right atrial pressure, 15 mmHg. Aorta The aortic root size at the sinus of Valsalva is normal. Left Ventricular Outflow Tract Name Value Normal LVOT 2D LVOT Diameter 2.0 cm LVOT Doppler LVOT Peak Gradient 3 mmHg LVOT Mean Gradient 2 mmHg LVOT VTI 20 cm LVOT VTI/AV VTI Ratio 0.5 LVOT Stroke Volume 66 ml LVOT CO 3.5 l/min
[2022-03-23] MEDS: PROPOFOL IV EMULSION 100 ML 27.26 MG IV CONT ×5 (08:16→23:09)
--- NOTE | 2022-03-23 08:17 | PC.NURSE ---
Reported from night RN Propofol was infusing at 20mcg/kg/min. Arrived in room to assess patient and Propofol was infusing at 20mcg/kg/min. Rate was charted at 10mcg/kg/min. New bottle hung, scanned at rate charted to correct increased rate of 40mcg/kg/min per MD order
[2022-03-23] MEDS: CENTRAL LINE FLUSH 10 ML IV PUSH ×4 (08:20→21:06)
[2022-03-23 08:56] LABS: Glucose Point of Care 67 mg/dl (65-105)
[2022-03-23] MEDS: PANTOPRAZOLE SODIUM IV 40 MG VIAL IV PUSH (09:00)
[2022-03-23] MEDS: DEXTROSE 50% 25 GM/50 ML SYRINGE IV PUSH ×2 (09:01→14:36)
[2022-03-23] MEDS: metroNIDAZOLE 500 MG/ISO 100ML 500 MG/100 ML BAG 100 MG IVPB ×3 (09:02→22:12)
[2022-03-23] MEDS: MINERAL OIL/WHITE PETROLATUM OINTMENT 1 APPLIC EACH EYE ×2 (09:02→20:35)
[2022-03-23] MEDS: carvediloL 6.25 MG TABLET PO (09:03)
[2022-03-23] MEDS: ROSUVASTATIN 10 MG TABLET 20 MG PO (09:04)
[2022-03-23] MEDS: LOSARTAN POTASSIUM 12.5 MG TABLET PO (09:04)
--- NOTE | 2022-03-23 09:04 | WPDCNINT ---
Assessment and Plan Assessment and plan (1) Acute respiratory failure: Code(s): J96.00 - Acute respiratory failure, unspecified whether with hypoxia or hypercapnia Status: Acute Assessment and Plan: Acute Respiratory failure secondary to cardiac arrest, possible aspiration pneumonia Continue full mechanical ventilation support to prevent hypoxemia/hypercarbia and end organ damage. ABG, chest CT and PCXR reviewed Low tidal volume ventilation strategy to prevent volutrauma Weaning will depend on patient's neurological improvement Add aztreonam and Flagyl for aspiration pneumonia Blood cultures were all region in ER and are pending Check sputum cultures, procalcitonin level (2) Aspiration pneumonia: Code(s): J69.0 - Pneumonitis due to inhalation of food and vomit Status: Acute Assessment and Plan: see above (3) Cardiac arrest: Code(s): I46.9 - Cardiac arrest, cause unspecified Status: Acute Assessment and Plan: VFib cardiac arrest likely secondary to STEMI now status post partially successful PCI hold antiplatelet and due to intra-abdominal hemorrhage continue statin and low-dose ARB and beta-robinson as her blood If arrhythmia recurs will start amiodarone infusion check echocardiogram (4) ST elevation [place] (STEMI): Code(s): I21.3 - ST elevation (STEMI) myocardial infarction of unspecified site Status: Acute Assessment and Plan: see above (5) Ventricular fibrillation: Code(s): I49.01 - Ventricular fibrillation Status: Acute Assessment and Plan: see above (6) Intra abdominal hemorrhage: Code(s): R58 - Hemorrhage, not elsewhere classified Status: Acute Assessment and Plan: patient's chest CT shows small amount of hemoperitoneum with post multiple possible etiologies patient received CPR leading to sternal and rib fractures, patient also received anticoagulation for her PCI, she had is femoral arterial puncture for PCI and also had some bleeding on removal of sheath requiring extended pressure at this time will monitor hemoglobin serially groin site at this time does not show any swelling hematoma or bruising hold anticoagulation and antiplatelets at this time transfuse if needed check coags later today (7) Rib fracture: Code(s): S22.39XA - Fracture of one rib, unspecified side, initial encounter for closed fracture Status: Acute Assessment and Plan: patient sustained sternal and right 5th and 6th rib fractures which are likely from CPR no flail chest conservative management (8) Acute kidney injury: Code(s): N17.9 - Acute kidney failure, unspecified Status: Acute Assessment and Plan: baseline creatinine is unknown likely prerenal from cardiac arrest in patient also has mild rhabdomyolysis continue IV fluids monitor electrolytes urine output and creatinine check renal ultrasound (9) Hypertension: Code(s): I10 - Essential (primary) hypertension Status: Acute Assessment and Plan: on low-dose Cozaar and beta-robinson blood pressure is in acceptable range as patient is also on propofol sedation (10) Anoxic brain injury: Code(s): G93.1 - Anoxic brain damage, not elsewhere classified Status: Acute Assessment and Plan: on arrival to ICU sedation was discontinued and patient was assessed and she did not demonstrate any proceed with movement suggestive of anoxic brain injury Patient was started on TTM protocol and reached goal temperature 4:00 a.m. On my exam this morning patient exhibiting myoclonic jerking to would confirm neurological injury Head CT IMPRESSION: 1. Small region of gyral enhancement at the left frontoparietal region most likely related to recent cerebral infarction with differential including seizure or migraine, infection in the appropriate clinical setting or less likely malignancy. 2. Infarcts a
[2022-03-23] MEDS: LACTATED RINGERS 1,000 ML 100 ML IV CONT ×2 (09:06→19:43)
--- NOTE | 2022-03-23 09:10 | PM.IMCN ---
Assessment and Plan Assessment and plan (1) Anoxic brain injury: Code(s): G93.1 - Anoxic brain damage, not elsewhere classified Status: Acute Assessment and Plan: Patient was down for approximately 18 minutes prior to ROSC. CT of the brain showing small region of gyral enhancement a left frontoparietal region most likely CVA. Also of note are bilateral occipital lobe infarcts subacute versus chronic. Patient without history of stroke. Aspirin on hold due to patient abdominal hemorrhage. She remains sedated at this time. Continue cooling protocol. Keppra has been started. Wean sedation after cooling protocol is complete. EEG if needed. (2) Ventricular fibrillation: Code(s): I49.01 - Ventricular fibrillation Status: Acute Assessment and Plan: Patient with VFib arrest in the field. CPR started immediately by family and then by EMS. Shocked once which resulted in PEA. Continue to monitor on telemetry. (3) Cardiac arrest: Code(s): I46.9 - Cardiac arrest, cause unspecified Status: Acute Assessment and Plan: Patient with acute cardiac arrest in the field. She underwent left heart catheterization for presumes STEMI in the field. She had balloon angioplasty but no stent placement. She really has been started on Crestor, Cozaar and Coreg. Plavix and aspirin hold at this time. Appreciate Cardiology input. (4) ST elevation [place] (STEMI): Code(s): I21.3 - ST elevation (STEMI) myocardial infarction of unspecified site Status: Acute Assessment and Plan: Inferior STEMI noted by EKG in the field once ROSC was achieved. Left heart catheterization results as mentioned above. Patient is status post balloon angioplasty with some improvement in flow to the distal LAD. Continue medical management. (5) Acute respiratory failure: Code(s): J96.00 - Acute respiratory failure, unspecified whether with hypoxia or hypercapnia Status: Acute Assessment and Plan: As above. Acute respiratory failure related to her cardiac arrest. Patient may have aspirated as well contributing to her acute respiratory failure. Antibiotics have been started for possible aspiration pneumonia. Continue mechanical ventilation. Appreciate arc cutter input. (6) Aspiration pneumonia: Code(s): J69.0 - Pneumonitis due to inhalation of food and vomit Status: Acute Assessment and Plan: CT the chest showing acute fracture of the sternum and right 5th and 6th ribs. Chest CT also shows mild atelectasis but no significant infiltrates. White count elevated but probably more stress response. Patient most likely will be unable to mount a fever. IV antibiotics have been started. Will continue to follow. (7) Atrial fibrillation: Code(s): I48.91 - Unspecified atrial fibrillation Status: Acute Assessment and Plan: EKG showing AFib. Unclear if this was evident prior to the cardiac arrest or due to it. No anticoagulation at this time. Continue rate controlling measures. (8) Intra abdominal hemorrhage: Code(s): R58 - Hemorrhage, not elsewhere classified Status: Acute Assessment and Plan: Chest CT also shows you fat stranding around the pancreas some of which is high in the in attenuation consistent with hemorrhage. There is also a small volume of hemoperitoneum adjacent to the spleen. For this reason, Plavix and aspirin has been held. Wean to monitor H&H closely. Transfuse as needed. If there is a spleen laceration, then she will need to be surgical consult. Check lipase. (9) Rib fracture: Code(s): S22.39XA - Fracture of one rib, unspecified side, initial encounter for closed fracture Status: Acute Assessment and Plan: CT of the chest also shows subcutaneous fat stranding superficial to the sternum consistent with hematoma as well as a nondisplaced fracture of the body of the sternum and fractu
--- NOTE | 2022-03-23 10:11 | ECG_ITS ---
Rate 49 MD 236 QRSd 110 QT 579 QTc 528 --[place]-- P 96 QRS -19 T -35 SINUS BRADYCARDIA WITH FIRST DEGREE AV BLOCK LEFT VENTRICULAR HYPERTROPHY AND ST-T CHANGE ST-T WAVE ABNORMALITY IN ANTEROLATERAL LEADS- CONSIDER ISCHEMIA BASELINE ARTIFACT- I, II, III, AVR, AVL, AVF, V1-V6 ABNORMAL ECG Electronically Signed On 03-23-2022 10:22:38 CDT by Juvenal GHOSH
[2022-03-23 10:21] LABS: Glucose Point of Care 142 mg/dl (65-105)
[2022-03-23] MEDS: AZTREONAM 1 GM in DEXTROSE 5% IN WATER 50 ML 100 ML IVPB ×2 (10:25→16:00)
[2022-03-23 11:06] LABS: Glucose Point of Care 106 mg/dl (65-105)
[2022-03-23 12:14] LABS: Hematocrit 35.3 % (37.0-47.0); Hemoglobin 11.1 g/dL (12.0-15.0); Mean Corpuscular HGB Conc 31.4 g/dl (32-36); Mean Corpuscular Hemoglobin 21.3 pg (26-34); Mean Corpuscular Volume 67.8 fl (80-100); Mean Platelet Volume 9.2 fl (7.4-10.4); Platelet Count Result 324 k/mm3 (150-375); Red Blood Count 5.21 M/mm3 (4.2-5.4); Red Cell Distribution Width 16.4 % (11.5-14.5); White Blood Count 10.5 K/mm3 (4.5-10.0)
[2022-03-23 12:17] LABS: Glucose Point of Care 87 mg/dl (65-105)
[2022-03-23 12:32] LABS: Creatine Kinase 499 U/L (30-135)
[2022-03-23 12:55] LABS: INR 1.2
[2022-03-23 12:56] LABS: Partial Thromboplastin Time 39.2 SECONDS (22.3-36.8)
--- NOTE | 2022-03-23 12:56 | PM.PNCARD ---
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 She was found to have a 100% acute occlusion of the distal LAD. Efforts to revascularize this were not successful and the case ended without intervention to the LAD lesion and she was transferred to the ICU in stable but critical condition. Echo showed mildly reduced systolic function with EF 40%. Currently, her aspirin and plavix are on hold due to small acute abdominal hemorrhage. Coreg has also been held due to bradycardia. Overall prognosis is guarded. (2) Cardiac arrest: Code(s): I46.9 - Cardiac arrest, cause unspecified Status: Acute Assessment and Plan: Witnessed cardiac arrest at home. Did receive CPR from a bystander prior to EMS arrival. Found to be in VF upon arrival to the emergency department. (3) Intra abdominal hemorrhage: Code(s): R58 - Hemorrhage, not elsewhere classified Status: Acute Assessment and Plan: Chest CT shows small amount of hemoperitoneum. Probably secondary to CPR, anticoagulation for PCI. H&H stable thus far. Hold ASA, plavix (4) Anoxic brain injury: Code(s): G93.1 - Anoxic brain damage, not elsewhere classified Status: Acute Assessment and Plan: Out of hospital cardiac arrest with unknown down time, medical record indicates that she received CPR from a bystander at home prior to EMS arrival. She did achieve ROSC after 2 rounds of epinephrine/ACLS protocol. Unfortunately she is exhibiting some signs of anoxic brain injury including myoclonic jerking and no purposeful movements with withdrawal of sedation earlier this morning. On TTM protocol. Management per critical care. Subjective Date/time seen: 03/23/22 12:56 Cardiology follow up for STEMI She remains intubated, sedated, and on TTM protocol. Review of Systems Review of Systems: ROS unobtainable: Yes unobtainable due to endotracheal tube and unobtainable due to medical condition Exam Const: General: ill appearing acutely HENMT: Head: normal to inspection Mouth: Yes moist mucous membranes Other: Tongue swollen and ecchymotic Eyes: General: appearance normal, both eyes and all related structures Sclera: sclerae normal Neck: Neck: supple Other: Triple lumen central line RIJ Chest: Chest palpation & inspection: normal inspection of the chest Resp: Effort & Inspection: other (mechanically ventilated ) Auscultation: clear to auscultation bilaterally (only able to auscultate anteriorally ) Other: Cardio: Rate: bradycardic Rhythm: regular rhythm Heart sounds: no murmurs GI: Inspection: abdominal wall ecchymosis Auscultation: normal bowel sounds Urinary Catheter: Urinary Catheter: patent and draining Skin: General skin exam: normal color Other: Groin arterial insertion site free from bleeding, hematoma Neuro: General: No patient oriented x3 Speech: No normal speech Motor exam (neuro): Motor abnormalites present myoclonus Other: Intubated and sedated Extrem: General: normal to inspection Psych: Appearance: grossly abnormal Mental Status: mental status grossly abnormal Objective Data Vital Signs Vital Signs: Vital Signs - 24 hr 03/22/22 21:34 03/22/22 21:44 03/22/22 21:45 Temperature 36.3 C L Pulse Rate 81 80 69 Respiratory Rate 14 21 H 14 Blood Pressure 158/133 H 110/73 Pulse Oximetry 97 97 97 03/22/22 21:46 03/22/22 21:58 03/22/22 22:00 Temperature Pulse Rate 72 61 85 Respiratory Rate 12 14 Blood Pressure 110/73 179/120 H Pulse Oximetry 100 100 100 03/22/22 22:02 03/22/22 22:03 03/22/22 22:05 Temperature Pulse Rate 85 86 87 Respiratory Rate 21 H 21 H 14 Blood Pressure
[2022-03-23 13:17] LABS: Lipase 58 U/L (23-300)
[2022-03-23 13:26] LABS: Procalcitonin 0.6 ng/mL
[2022-03-23 13:42] LABS: Glucose Point of Care 86 mg/dl (65-105)
[2022-03-23 14:02] LABS: Fibrinogen 470 mg/dl (215-510)
[2022-03-23] MEDS: MIDAZOLAM HCL (*CRX) 2 MG/2 ML VIAL 4 MG IV PUSH (14:14)
[2022-03-23] MEDS: MIDAZOLAM 100MG/NS 100ML(*CRX) 100 MG/100 ML BAG IV CONT (14:14)
[2022-03-23 14:31] LABS: Glucose Point of Care 73 mg/dl (65-105)
[2022-03-23 15:41] LABS: Glucose Point of Care 141 mg/dl (65-105)
--- NOTE | 2022-03-23 16:00 | ECG_ITS ---
Measurements Intervals [place] Rate: 52 P: [place]: 0 QRS: -25 QRSD: 106 T: 267 QT: 575 QTc: 538 Interpretive Statements SINUS RHYTHM WITH FIRST DEGREE AV BLOCK LEFT VENTRICULAR HYPERTROPHY AND ST-T CHANGE ST-T WAVE ABNORMALITY IN ANTEROLAT/INF LEADS- CONSIDER ISCHEMIA BASELINE ARTIFACT- II, III, AVR, AVL, AVF, V1-V6 ABNORMAL ECG Electronically Signed On 03-23-2022 16:23:31 CDT by Juvenal Lange D.O.
[2022-03-23 16:33] LABS: Glucose Point of Care 107 mg/dl (65-105)
[2022-03-23 17:30] LABS: Glucose Point of Care 86 mg/dl (65-105)
[2022-03-23 17:43] LABS: Hematocrit 35.2 % (37.0-47.0); Hemoglobin 10.8 g/dL (12.0-15.0); Mean Corpuscular HGB Conc 30.7 g/dl (32-36); Mean Corpuscular Volume 68.3 fl (80-100); Mean Platelet Volume 9.1 fl (7.4-10.4); Platelet Count Result 297 k/mm3 (150-375); Red Blood Count 5.15 M/mm3 (4.2-5.4); Red Cell Distribution Width 16.4 % (11.5-14.5); White Blood Count 11.5 K/mm3 (4.5-10.0)
[2022-03-23 17:53] LABS: Lactic Acid Reflex 1.6 mmol/L (0.7-2.0)
[2022-03-23 17:54] LABS: Anion Gap 10 mmol/L (8-16); Blood Urea Nitrogen 17 mg/dL (7-17); Calcium 8.2 mg/dL (8.4-10.2); Carbon Dioxide 23 mmol/L (22-30); Chloride 107 mmol/L (98-107); Creatine Kinase 622 U/L (30-135); Estimated CRCL calculation 58 ml/min; Estimated Glomerular Filt Rate > 60; Glucose 80 mg/dL (65-110); Magnesium 1.9 mg/dL (1.6-2.3); Sodium 140 mmol/L (137-145)
[2022-03-23 18:18] LABS: Glucose Point of Care 81 mg/dl (65-105)
[2022-03-23 19:59] LABS: Glucose Point of Care 72 mg/dl (65-105)
[2022-03-23] MEDS: DEXTROSE 5%/0.45% SOD CHL 1,000 ML 100 ML IV CONT (20:28)
[2022-03-23 21:05] LABS: Glucose Point of Care 85 mg/dl (65-105)
[2022-03-23] MEDS: KCL 20 MEQ/SW 100 ML 100 ML 50 MEQ IVPB (21:06)
[2022-03-23 22:19] LABS: Glucose Point of Care 126 mg/dl (65-105)
[2022-03-23 23:19] LABS: Glucose Point of Care 144 mg/dl (65-105)
[2022-03-23 23:42] LABS: Creatine Kinase 633 U/L (30-135)
[2022-03-23 23:43] LABS: Lactic Acid Reflex 1.2 mmol/L (0.7-2.0)
[2022-03-24] VITALS (40 sets, daily range): BP systolic 94–142; BP diastolic 62–79; PULSE 50–87; RESP 16–30; TEMP 32.2–38; O2SAT 97–100
[2022-03-24 00:30] LABS: Glucose Point of Care 106 mg/dl (65-105)
[2022-03-24] MEDS: AZTREONAM 1 GM in DEXTROSE 5% IN WATER 50 ML 100 ML IVPB ×3 (01:13→16:34)
[2022-03-24 01:19] LABS: Glucose Point of Care 114 mg/dl (65-105)
[2022-03-24 01:27] LABS: Hematocrit 34.4 % (37.0-47.0); Hemoglobin 10.7 g/dL (12.0-15.0); Mean Corpuscular HGB Conc 31.1 g/dl (32-36); Mean Corpuscular Hemoglobin 21.2 pg (26-34); Mean Corpuscular Volume 68.3 fl (80-100); Mean Platelet Volume 9.3 fl (7.4-10.4); Platelet Count Result 305 k/mm3 (150-375); Red Blood Count 5.04 M/mm3 (4.2-5.4); Red Cell Distribution Width 16.5 % (11.5-14.5); White Blood Count 11.7 K/mm3 (4.5-10.0)
[2022-03-24 02:14] LABS: Glucose Point of Care 120 mg/dl (65-105)
[2022-03-24] MEDS: PROPOFOL IV EMULSION 100 ML 30.67 MG IV CONT ×2 (03:04→06:58)
[2022-03-24 03:10] LABS: Glucose Point of Care 116 mg/dl (65-105)
[2022-03-24] MEDS: levETIRAcetam 1000MG/NACL100ML 1,000 MG/100 ML BAG 400 MG IVPB ×2 (04:12→16:34)
[2022-03-24 05:08] LABS: Alveolar/Arterial O2 Gradient 104.2 mmHg; Base Excess ABG -0.1 mEq/l (+/-2.0); Carboxyhemoglobin 0.1 % THb (0-2.0); Fractional Inspired Oxygen 30 %; HCO3 ABG 20.6 mEq/l (22.0-26.0); Methemoglobin ABG 0.3 %THb (0-1.5); Oxygen Content ABG 16.7 %vol (16.0-22.0); Oxygen Saturation ABG 97.4 % (95.0-100.0); Oxyhemoglobin 96.4 % THb (90.0-100.0); PO2 FiO2 Ratio Arterial Blood 2.73 %; Reduced Hemoglobin 3.2 %THb (0-5.0); Total Hemoglobin 12.3 g/dL (12.0-18.0)
[2022-03-24 05:09] LABS: Glucose Point of Care 117 mg/dl (65-105)
[2022-03-24 05:09] LABS: Glucose Point of Care 110 mg/dl (65-105)
[2022-03-24 05:09] LABS: pH ABG 7.559 (7.350-7.450)
[2022-03-24 05:10] LABS: Arterial Blood Gas PEEP 5 cmH2O; Arterial Blood Gas Tidal Volume 450 ml; Arterial Blood Gas Vent Mode CMV; Arterial Blood Gas Ventilator rate 20 /MIN; Device VENTILATOR; Modified Allen's Test Pass; PCO2 ABG 23.6 mmHg (35.0-45.0); Site Drawn LEFT RADIAL
[2022-03-24 06:02] LABS: Hematocrit 32.7 % (37.0-47.0); Hemoglobin 10.4 g/dL (12.0-15.0); Mean Corpuscular HGB Conc 31.8 g/dl (32-36); Mean Corpuscular Hemoglobin 21.6 pg (26-34); Mean Platelet Volume 9.2 fl (7.4-10.4); Platelet Count Result 283 k/mm3 (150-375); Red Blood Count 4.81 M/mm3 (4.2-5.4); Red Cell Distribution Width 15.8 % (11.5-14.5); White Blood Count 11.7 K/mm3 (4.5-10.0)
[2022-03-24] MEDS: DEXTROSE 5%/0.45% SOD CHL 1,000 ML 100 ML IV CONT ×2 (06:09→20:04)
[2022-03-24 06:12] LABS: Lactic Acid Reflex 1.4 mmol/L (0.7-2.0)
[2022-03-24] MEDS: CENTRAL LINE FLUSH 10 ML IV PUSH ×4 (06:12→21:47)
[2022-03-24] MEDS: metroNIDAZOLE 500 MG/ISO 100ML 500 MG/100 ML BAG 100 MG IVPB ×3 (06:12→21:46)
[2022-03-24 06:17] LABS: Alanine Aminotransferase 112 U/L (4-35); Albumin Level 3.2 g/dL (3.5-5.1); Alkaline Phosphatase 107 U/L (38-126); Anion Gap 8 mmol/L (8-16); Aspartate Amino Transferase 181 U/L (14-36); Bilirubin,Total 0.2 mg/dL (0.2-1.3); Blood Urea Nitrogen 16 mg/dL (7-17); Calcium 7.8 mg/dL (8.4-10.2); Carbon Dioxide 23 mmol/L (22-30); Chloride 106 mmol/L (98-107); Creatine Kinase 533 U/L (30-135); Estimated CRCL calculation 60 ml/min; Estimated Glomerular Filt Rate > 60; Glucose 128 mg/dL (65-110); Magnesium 1.6 mg/dL (1.6-2.3); Potassium 2.8 mmol/L (3.4-5.0); Sodium 137 mmol/L (137-145)
[2022-03-24 06:20] LABS: Glucose Point of Care 109 mg/dl (65-105)
[2022-03-24 07:05] LABS: Glucose Point of Care 114 mg/dl (65-105)
[2022-03-24] MEDS: CALCIUM GLUC 2,000 MG/NS 100ML 2,000 MG/100 ML BAG 100 MG IVPB (07:42)
[2022-03-24] MEDS: KCL 40 MEQ/WATER 100 ML 100 ML 25 ML IVPB (07:43)
[2022-03-24] MEDS: MAGNESIUM SULF 2 GM/WATER 50ML 2 GM/50 ML BAG IVPB (07:46)
--- NOTE | 2022-03-24 08:08 | WPDINTPN ---
Progress Note: A&P Assessment and Plan (1) Acute respiratory failure: Code(s): J96.00 - Acute respiratory failure, unspecified whether with hypoxia or hypercapnia Status: Acute Assessment and Plan: Acute Respiratory failure secondary to cardiac arrest, possible aspiration pneumonia Continue full mechanical ventilation support to prevent hypoxemia/hypercarbia and end organ damage. ABG, chest CT and PCXR reviewed Decrease tidal volume to 400 and respiratory rate to 16 will repeat ABG later today Weaning will depend on patient's neurological improvement continue aztreonam and Flagyl for aspiration pneumonia Blood cultures were all region in ER and are pending Sputum cultures pending, procalcitonin level 0.6 (2) Aspiration pneumonia: Code(s): J69.0 - Pneumonitis due to inhalation of food and vomit Status: Acute Assessment and Plan: see above (3) Cardiac arrest: Code(s): I46.9 - Cardiac arrest, cause unspecified Status: Acute Assessment and Plan: VFib cardiac arrest likely secondary to STEMI now status post partially successful PCI continue to hold antiplatelet and due to intra-abdominal hemorrhage for another 24 hours continue statin and low-dose ARB and beta-robinson as her blood If arrhythmia recurs will start amiodarone infusion Echocardiogram showed Borderline LV enlargement, moderate LVH. Moderate LV systolic dysfunction, ejection fraction approximately 40%. Diastolic dysfunction is present. Moderate left atrial enlargement. Mild right atrial enlargement. Normal mitral valve structure, mild mitral regurgitation. Mild aortic valve sclerosis, mild aortic stenosis, valve area 1.7 cm2. Mild tricuspid regurgitation, moderate pulmonary hypertension, RVSP 48 mmHg. (4) ST elevation [place] (STEMI): Code(s): I21.3 - ST elevation (STEMI) myocardial infarction of unspecified site Status: Acute Assessment and Plan: see above (5) Ventricular fibrillation: Code(s): I49.01 - Ventricular fibrillation Status: Acute Assessment and Plan: see above (6) Intra abdominal hemorrhage: Code(s): R58 - Hemorrhage, not elsewhere classified Status: Acute Assessment and Plan: patient's chest CT shows small amount of hemoperitoneum with post multiple possible etiologies patient received CPR leading to sternal and rib fractures, patient also received anticoagulation for her PCI, she had is femoral arterial puncture for PCI and also had some bleeding on removal of sheath requiring extended pressure at this time will monitor hemoglobin serially which has been stable groin site at this time does not show any swelling hematoma or bruising hold anticoagulation and antiplatelets for another 24 hours transfuse if needed Coags were in acceptable range (7) Rib fracture: Code(s): S22.39XA - Fracture of one rib, unspecified side, initial encounter for closed fracture Status: Acute Assessment and Plan: patient sustained sternal and right 5th and 6th rib fractures which are likely from CPR no flail chest conservative management (8) Acute kidney injury: Code(s): N17.9 - Acute kidney failure, unspecified Status: Acute Assessment and Plan: baseline creatinine is unknown likely prerenal from cardiac arrest in patient also has mild rhabdomyolysis improved with IV fluids monitor electrolytes urine output and creatinine normal renal ultrasound (9) Hypertension: Code(s): I10 - Essential (primary) hypertension Status: Acute Assessment and Plan: on low-dose Cozaar and beta-robinson blood pressure is in acceptable range as patient is also on propofol sedation (10) Anoxic brain injury: Code(s): G93.1 - Anoxic brain damage, not elsewhere classified Status: Acute Assessment and Plan: on arrival to ICU sedation was discontinued and patient was assessed and she
[2022-03-24 08:10] LABS: Glucose Point of Care 107 mg/dl (65-105)
--- NOTE | 2022-03-24 08:57 | PM.IMPN ---
Progress Note: A&P Assessment and Plan (1) Anoxic brain injury: Code(s): G93.1 - Anoxic brain damage, not elsewhere classified Status: Acute Assessment and Plan: Patient was down for approximately 18 minutes prior to ROSC. Brain CT showing small region of gyral enhancement at the left frontoparietal region most likely CVA. Also of note are bilateral occipital lobe infarcts subacute versus chronic. Patient without history of stroke. She has completed the cooling protocol. Aspirin and Plavix on hold due to patient abdominal hemorrhage. She remains sedated at this time. Continue Keppra. EEG ordered. Repeat CT brain ordered. Neurology consulted. Wean sedation when able. (2) Ventricular fibrillation: Code(s): I49.01 - Ventricular fibrillation Status: Acute Assessment and Plan: Patient with VFib arrest in the field. CPR started immediately by family and then by EMS. Shocked once which resulted in PEA. [place] related to STEMI/ischemia. Having runs of NSVT. Continue Coreg. Continue to monitor on telemetry. Appreciate Cardiology input. (3) Cardiac arrest: Code(s): I46.9 - Cardiac arrest, cause unspecified Status: Acute Assessment and Plan: Patient with acute cardiac arrest in the field. STEMI called in the field and patient underwent left heart catheterization on arrival. She had balloon angioplasty but no stent placement to the distal LAD. Continue Crestor, Cozaar and Coreg. Plavix and aspirin on hold at this time due to intra-abdominal hemorrhage. Appreciate Cardiology input. (4) ST elevation [place] (STEMI): Code(s): I21.3 - ST elevation (STEMI) myocardial infarction of unspecified site Status: Acute Assessment and Plan: Inferior STEMI noted by EKG in the field once ROSC was achieved. Left heart catheterization on admission with single-vessel CAD with acute LA with total acute occlusion of the terminal apical portion of the LAD. Very tortuous LAD, anomalous non-diseased RCA and non-diseased LCx. Patient is status post balloon angioplasty with some improvement in flow to the distal LAD. Echo showing EF 40-45% and diastolic dysfunction, moderate LAE, mild valvular disease and moderate pulmonary HTN. Continue medical management. (5) Acute respiratory failure: Code(s): J96.00 - Acute respiratory failure, unspecified whether with hypoxia or hypercapnia Status: Acute Assessment and Plan: As above. Acute respiratory failure related to her cardiac arrest. Patient may have aspirated as well contributing to her acute respiratory failure. She remains on abx for possible aspiration pneumonia. Continue mechanical ventilation. Appreciate mergers and acquisitions associate input. (6) Aspiration pneumonia: Code(s): J69.0 - Pneumonitis due to inhalation of food and vomit Status: Acute Assessment and Plan: CT the chest showing acute fracture of the sternum and right 5th and 6th ribs. Chest CT also shows mild atelectasis but no significant infiltrates. White count mildly elevated but stable at 11K. Patient most likely was unable to mount a fever. Continue IV antibiotics with Flagyl and Aztreonam. Will continue to follow. (7) Atrial fibrillation: Code(s): I48.91 - Unspecified atrial fibrillation Status: Acute Assessment and Plan: EKG showing AFib. Unclear if this was evident prior to the cardiac arrest or due to it. She has converted to NSR now. No anticoagulation at this time. Echo noted but no obvious thrombus. Continue Coreg. (8) Intra abdominal hemorrhage: Code(s): R58 - Hemorrhage, not elsewhere classified Status: Acute Assessment and Plan: Chest CT also shows fat stranding around the pancreas consistent with hemorrhage. Lipase normal. There is also a small volume of hemoperitoneum adjacent to the spleen. For this reason, Plavix and aspirin has been held. Hgb stable. Monitor H&H closely. Transfuse as need
[2022-03-24] MEDS: MINERAL OIL/WHITE PETROLATUM OINTMENT 1 APPLIC EACH EYE ×2 (09:40→20:06)
[2022-03-24] MEDS: PANTOPRAZOLE SODIUM IV 40 MG VIAL IV PUSH (09:40)
[2022-03-24] MEDS: ROSUVASTATIN 10 MG TABLET 20 MG PO (09:41)
[2022-03-24] MEDS: LOSARTAN POTASSIUM 12.5 MG TABLET PO (09:41)
[2022-03-24] MEDS: carvediloL 3.125 MG TABLET PO ×2 (09:41→20:13)
[2022-03-24 09:50] LABS: Glucose Point of Care 113 mg/dl (65-105)
--- NOTE | 2022-03-24 09:58 | PM.PNCARD ---
Progress Note: A&P Additional Plan 76-year-old lady following apical myocardial infarction which was complicated unfortunately by out of hospital ventricular fibrillation. Despite rapid resuscitation she clearly has a significant anoxic cerebral insult. Evaluation of this is underway now with EEG. Anti-platelet therapy has been placed on hold because of abdominal hematoma resulting from CPR followed by systemic anticoagulation and anti-platelet therapy. Prognosis is obviously very poor given this current situation. Jackson Palma MD [facility] Subjective Date/time seen: 03/24/22 09:58 Interval history: 76-year-old lady with: Out of hospital ventricular fibrillation complicating distal anterior wall LA it out at the apex. Patient was brought for emergency revascularization on presentation following resuscitation and intubation in the field. Partially successful procedure due to extreme tortuosity in the LAD. No other coronary disease was found. 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 CT scan performed this morning. EEG has been ordered following completion of cooling/hypothermia protocol. Intubated on the ventilator she exhibiting myoclonic jerking. Exam Const: General: ill appearing acutely Orientation/consciousness: No patient oriented x3 Other: intubated elderly lady Exhibiting myoclonic jerking. HENMT: Head: normal to inspection Mouth: Yes moist mucous membranes Other: Tongue swollen and ecchymotic Eyes: General: appearance normal, both eyes and all related structures Sclera: sclerae normal Neck: Neck: supple Other: Triple lumen central line RIJ Chest: Chest palpation & inspection: normal inspection of the chest Resp: Effort & Inspection: other (mechanically ventilated ) Auscultation: clear to auscultation bilaterally (only able to auscultate anteriorally ) Other: Cardio: Rate: bradycardic Rhythm: regular rhythm Heart sounds: no murmurs Other: PMI difficult to palpate no obvious murmur or gallop GI: Inspection: abdominal wall ecchymosis Auscultation: normal bowel sounds Urinary Catheter: Urinary Catheter: patent and draining Skin: General skin exam: normal color Other: Groin arterial insertion site free from bleeding, hematoma Neuro: General: No patient oriented x3 Speech: No normal speech Motor exam (neuro): Motor abnormalites present myoclonus Other: Intubated and sedated Extrem: General: normal to inspection Psych: Appearance: grossly abnormal Mental Status: mental status grossly abnormal Objective Data Vital Signs Vital Signs: Vital Signs - 24 hr 03/23/22 10:00 03/23/22 10:25 03/23/22 10:30 Temperature 33.8 C L Pulse Rate 80 49 L 48 L Respiratory Rate 20 20 Blood Pressure 147/83 H Pulse Oximetry 98 98 03/23/22 11:00 03/23/22 12:00 03/23/22 13:00 Temperature 33.2 C L 32.7 C L 33.2 C L Pulse Rate 49 L 44 L 49 L Respiratory Rate 20 20 20 Blood Pressure 143/100 H 136/86 140/84 Pulse Oximetry 97 98 97 03/23/22 13:47 03/23/22 13:53 03/23/22 14:00 Temperature 33.7 C L Pulse Rate 53 L 54 L 54 L Respiratory Rate 20 20 Blood Pressure 135/86 Pulse Oximetry 98 95 03/23/22 14:14 03/23/22 14:36 03/23/22 14:40 Temperature Pulse Rate 57 L 57 L 55 L Respiratory Rate 20 20 20 Blood Pressure Pulse Oximetry 03/23/22 15:00 03/23/22 16:00 03/23/22 16:42 Temperature 34.3 C L 33.8 C L Pulse Rate 54 L 52 L 50 L Respiratory Rate 20 20 Blood Pressure 143/78 H 134/86 Pulse Oximetry 97 97 97 03/23/22 17:00 03/23/22 17:37 03/23/22 17:38 Temperature 33.9 C L Pulse Rate 50 L 48 L 49 L Respiratory Rate 20 20 20 Blood Pressure 143/81 H Pulse Oximetry 97 03/23/22 18:00 03/23/22 18:25 03/23/22 18:52 Temperature 33.6 C L Pulse Rate 51 L 57 L 56 L Respiratory Rate 20 20 20 Blood Pressure 146
[2022-03-24 10:31] LABS: Fractional Inspired Oxygen 30 %; HCO3 ABG 20.6 mEq/l (22.0-26.0); Oxygen Content ABG 16.3 %vol (16.0-22.0); Oxygen Saturation ABG 97.7 % (95.0-100.0); Oxyhemoglobin 96.7 % THb (90.0-100.0); PCO2 ABG 31.9 mmHg (35.0-45.0); PO2 ABG 99.4 mmHg (80.0-100.0); PO2 FiO2 Ratio Arterial Blood 3.31 %; Total Hemoglobin 11.9 g/dL (12.0-18.0); pH ABG 7.427 (7.350-7.450)
[2022-03-24 10:32] LABS: Arterial Blood Gas PEEP 5 cmH2O; Arterial Blood Gas Tidal Volume 400 ml; Arterial Blood Gas Vent Mode CMV; Arterial Blood Gas Ventilator rate 16 /MIN; Device VENTILATOR; Modified Allen's Test Pass; Site Drawn LEFT RADIAL
[2022-03-24 11:03] LABS: Glucose Point of Care 115 mg/dl (65-105)
--- NOTE | 2022-03-24 11:41 | PCFNICU ---
ICU Rounding Note: Pt current nutrition is Nutrition recommendation: Last recorded weight is 102 kg. Bowel Motility: No BM reported Labs Reviewed:Glu 128,K 2.8,Alb 3.2,Hct 32.7,Hgb 10.4 Meds Noted:Propofol 17.04 az=235 kcals, Keppra, Coreg, Crestor, Protonix, Versed, Flagyl Skin: WNL Additional Notes: Patient remains on mechanical vent, tube feedings of Vital AF 1.2 started today at 20 ml/hr over 22 hours. Propofol infusion has decreased from 45 mics to 25 mics. Recommend goal rate of tube feeding to increase to 40 ml/hr over 22 hours, providing 1506 kcals/66 gms protein/714 ml water. Free water flush 30 ml q 4 hours. Plans for EEG today. Will monitor daily in ICU rounds and reassess every Tuesday and Tuesday.
[2022-03-24 12:07] LABS: Hematocrit 33.5 % (37.0-47.0); Hemoglobin 10.5 g/dL (12.0-15.0); Mean Corpuscular HGB Conc 31.3 g/dl (32-36); Mean Corpuscular Hemoglobin 21.4 pg (26-34); Mean Corpuscular Volume 68.4 fl (80-100); Mean Platelet Volume 9.3 fl (7.4-10.4); Platelet Count Result 300 k/mm3 (150-375); Red Cell Distribution Width 16.3 % (11.5-14.5); White Blood Count 14.9 K/mm3 (4.5-10.0)
[2022-03-24 12:18] LABS: Anion Gap 5 mmol/L (8-16); Blood Urea Nitrogen 17 mg/dL (7-17); Calcium 8.3 mg/dL (8.4-10.2); Carbon Dioxide 24 mmol/L (22-30); Chloride 106 mmol/L (98-107); Estimated CRCL calculation 48 ml/min; Estimated Glomerular Filt Rate > 60; Glucose 137 mg/dL (65-110); Potassium 3.9 mmol/L (3.4-5.0); Sodium 135 mmol/L (137-145)
[2022-03-24] MEDS: PROPOFOL IV EMULSION 100 ML 20.45 MG IV CONT (12:30)
[2022-03-24 13:21] LABS: Glucose Point of Care 112 mg/dl (65-105)
[2022-03-24 16:05] LABS: Glucose Point of Care 72 mg/dl (65-105)
[2022-03-24 18:09] LABS: Glucose Point of Care 80 mg/dl (65-105)
[2022-03-24] MEDS: PROPOFOL IV EMULSION 100 ML 17.04 MG IV CONT (18:40)
[2022-03-24] MEDS: MIDAZOLAM 100MG/NS 100ML(*CRX) 100 MG/100 ML BAG IV CONT (20:42)
[2022-03-24 23:29] LABS: Glucose Point of Care 93 mg/dl (65-105)
[2022-03-25] VITALS (23 sets, daily range): BP systolic 117–147; BP diastolic 63–95; PULSE 69–141; RESP 16–28; TEMP 36.6–38.5; O2SAT 98–100
[2022-03-25] MEDS: AZTREONAM 1 GM in DEXTROSE 5% IN WATER 50 ML 100 ML IVPB ×3 (00:29→16:02)
[2022-03-25 00:41] LABS: Hematocrit 31.6 % (37.0-47.0); Hemoglobin 9.9 g/dL (12.0-15.0); Mean Corpuscular HGB Conc 31.3 g/dl (32-36); Mean Corpuscular Hemoglobin 21.4 pg (26-34); Mean Corpuscular Volume 68.4 fl (80-100); Mean Platelet Volume 9.2 fl (7.4-10.4); Platelet Count Result 293 k/mm3 (150-375); Red Blood Count 4.62 M/mm3 (4.2-5.4); Red Cell Distribution Width 16.7 % (11.5-14.5); White Blood Count 14.7 K/mm3 (4.5-10.0)
[2022-03-25] MEDS: PROPOFOL IV EMULSION 100 ML 17.04 MG IV CONT ×4 (01:07→20:10)
[2022-03-25] MEDS: levETIRAcetam 1000MG/NACL100ML 1,000 MG/100 ML BAG 400 MG IVPB ×2 (04:15→15:49)
[2022-03-25 05:02] LABS: Alveolar/Arterial O2 Gradient 59.2 mmHg; Base Excess ABG -2.5 mEq/l (+/-2.0); Carboxyhemoglobin 0.3 % THb (0-2.0); Fractional Inspired Oxygen 30 %; HCO3 ABG 21.7 mEq/l (22.0-26.0); Methemoglobin ABG 0.2 %THb (0-1.5); Oxygen Content ABG 18.1 %vol (16.0-22.0); Oxygen Saturation ABG 98.2 % (95.0-100.0); Oxyhemoglobin 97.4 % THb (90.0-100.0); PCO2 ABG 35.7 mmHg (35.0-45.0); PO2 ABG 112.8 mmHg (80.0-100.0); PO2 FiO2 Ratio Arterial Blood 3.76 %; Reduced Hemoglobin 2.1 %THb (0-5.0); Total Hemoglobin 13.1 g/dL (12.0-18.0); pH ABG 7.402 (7.350-7.450)
[2022-03-25 05:03] LABS: Arterial Blood Gas PEEP 5 cmH2O; Arterial Blood Gas Tidal Volume 400 ml; Arterial Blood Gas Vent Mode CMV; Arterial Blood Gas Ventilator rate 16 /MIN; Device VENTILATOR; Modified Allen's Test Pass; Site Drawn LEFT RADIAL
[2022-03-25 06:00] LABS: Hematocrit 31.9 % (37.0-47.0); Hemoglobin 9.9 g/dL (12.0-15.0); Mean Corpuscular Hemoglobin 21.3 pg (26-34); Mean Corpuscular Volume 68.6 fl (80-100); Mean Platelet Volume 8.9 fl (7.4-10.4); Platelet Count Result 285 k/mm3 (150-375); Red Blood Count 4.65 M/mm3 (4.2-5.4); Red Cell Distribution Width 16.8 % (11.5-14.5)
[2022-03-25 06:03] LABS: Glucose Point of Care 87 mg/dl (65-105)
[2022-03-25] MEDS: metroNIDAZOLE 500 MG/ISO 100ML 500 MG/100 ML BAG 100 MG IVPB ×3 (06:03→21:53)
[2022-03-25] MEDS: CENTRAL LINE FLUSH 10 ML IV PUSH ×3 (06:04→18:23)
[2022-03-25 06:15] LABS: Alanine Aminotransferase 93 U/L (4-35); Alkaline Phosphatase 98 U/L (38-126); Anion Gap 6 mmol/L (8-16); Aspartate Amino Transferase 135 U/L (14-36); Bilirubin,Total 0.1 mg/dL (0.2-1.3); Blood Urea Nitrogen 21 mg/dL (7-17); Calcium 7.4 mg/dL (8.4-10.2); Carbon Dioxide 23 mmol/L (22-30); Chloride 106 mmol/L (98-107); Creatine Kinase 232 U/L (30-135); Estimated CRCL calculation 41 ml/min; Estimated Glomerular Filt Rate 53; Glucose 124 mg/dL (65-110); Lipase 43 U/L (23-300); Potassium 3.5 mmol/L (3.4-5.0); Sodium 135 mmol/L (137-145)
[2022-03-25] MEDS: DEXTROSE 10% 1,000 ML 30 ML IV CONT (07:51)
[2022-03-25] MEDS: POTASSIUM CHLORIDE 20 MEQ PACKET (FOR LIQUID) 40 MEQ FEED TUBE (07:53)
[2022-03-25] MEDS: hetaSTARCH 6%/NACL 500 ML 250 ML IV CONT (07:53)
[2022-03-25] MEDS: carvediloL 3.125 MG TABLET PO ×2 (08:00→20:10)
[2022-03-25] MEDS: PANTOPRAZOLE SODIUM IV 40 MG VIAL IV PUSH (08:00)
[2022-03-25] MEDS: MINERAL OIL/WHITE PETROLATUM OINTMENT 1 APPLIC EACH EYE ×2 (08:01→20:10)
[2022-03-25] MEDS: ROSUVASTATIN 10 MG TABLET 20 MG PO (08:01)
[2022-03-25] MEDS: LOSARTAN POTASSIUM 12.5 MG TABLET PO (08:01)
--- NOTE | 2022-03-25 09:03 | PM.IMPN ---
Progress Note: A&P Assessment and Plan (1) Anoxic brain injury: Code(s): G93.1 - Anoxic brain damage, not elsewhere classified Status: Acute Assessment and Plan: Patient was down for approximately 18 minutes prior to ROSC. Brain CT showing small region of gyral enhancement at the left frontoparietal region most likely CVA. Also of note are bilateral occipital lobe infarcts subacute versus chronic. Patient without history of stroke. She has completed the cooling protocol. Repeat CT brain 03/24 some areas with loss of varner-white differentiation suggestive of toxic brain injury and subacute bilateral occipital lobe infarcts. Aspirin and Plavix on hold due to patient abdominal hemorrhage. She remains sedated at this time. Continue Keppra. EEG result pending. Neurology consulted and appreciate their input. Wean sedation when able. (2) Ventricular fibrillation: Code(s): I49.01 - Ventricular fibrillation Status: Acute Assessment and Plan: Patient with VFib arrest in the field. CPR started immediately by family and then by EMS. Shocked once which resulted in PEA. [place] related to STEMI/ischemia. Continue Coreg. Continue to monitor on telemetry. Appreciate Cardiology input. (3) Cardiac arrest: Code(s): I46.9 - Cardiac arrest, cause unspecified Status: Acute Assessment and Plan: Patient with acute cardiac arrest in the field. STEMI called in the field and patient underwent left heart catheterization on arrival. She had balloon angioplasty but no stent placement to the distal LAD. Continue Crestor, Cozaar and Coreg. Plavix and aspirin on hold at this time due to intra-abdominal hemorrhage. Appreciate Cardiology input. (4) ST elevation [place] (STEMI): Code(s): I21.3 - ST elevation (STEMI) myocardial infarction of unspecified site Status: Acute Assessment and Plan: Inferior STEMI noted by EKG in the field once ROSC was achieved. Left heart catheterization on admission with single-vessel CAD with acute MT with total acute occlusion of the terminal apical portion of the LAD. Very tortuous LAD, anomalous non-diseased RCA and non-diseased LCx. Patient is status post balloon angioplasty with some improvement in flow to the distal LAD. Echo showing EF 40-45% and diastolic dysfunction, moderate LAE, mild valvular disease and moderate pulmonary HTN. Continue medical management. (5) Acute respiratory failure: Code(s): J96.00 - Acute respiratory failure, unspecified whether with hypoxia or hypercapnia Status: Acute Assessment and Plan: As above. Acute respiratory failure related to her cardiac arrest. Patient may have aspirated as well contributing to her acute respiratory failure. She remains on abx for possible aspiration pneumonia. Continue mechanical ventilation. Appreciate wire spiral binder input. (6) Aspiration pneumonia: Code(s): J69.0 - Pneumonitis due to inhalation of food and vomit Status: Acute Assessment and Plan: CT the chest showing acute fracture of the sternum and right 5th and 6th ribs. Chest CT also shows mild atelectasis but no significant infiltrates. White count mildly elevated but but has climbed to 14K. Patient with low-grade fever now. Continue IV antibiotics with Flagyl and Aztreonam. Will continue to follow. (7) Atrial fibrillation: Code(s): I48.91 - Unspecified atrial fibrillation Status: Acute Assessment and Plan: EKG showing AFib. Unclear if this was evident prior to the cardiac arrest or due to it. She has converted to NSR now. No anticoagulation at this time. Echo noted but no obvious thrombus. Continue Coreg. (8) Intra abdominal hemorrhage: Code(s): R58 - Hemorrhage, not elsewhere classified Status: Acute Assessment and Plan: Chest CT also shows fat stranding around the pancreas consistent with hemorrhage. Lipase normal. There is also a small volume of hemoperitone
--- NOTE | 2022-03-25 09:27 | WPDINTPN ---
Progress Note: A&P Assessment and Plan (1) Acute respiratory failure: Code(s): J96.00 - Acute respiratory failure, unspecified whether with hypoxia or hypercapnia Status: Acute Assessment and Plan: Acute Respiratory failure secondary to cardiac arrest, possible aspiration pneumonia Continue full mechanical ventilation support to prevent hypoxemia/hypercarbia and end organ damage. ABG, chest CT and PCXR reviewed, PEEP of 5 and Fio2 30% - Weaned off sedation (03/25) for EEG but pt had tremors, so was given Ativan and restarted on propofol after EEG was completed - continue aztreonam and Flagyl (03/23)for aspiration pneumonia - 03/23 Urine and Blood cultures are negative Sputum cultures pending, procalcitonin level 0.6 (2) Aspiration pneumonia: Code(s): J69.0 - Pneumonitis due to inhalation of food and vomit Status: Acute Assessment and Plan: see above (3) Cardiac arrest: Code(s): I46.9 - Cardiac arrest, cause unspecified Status: Acute Assessment and Plan: VFib cardiac arrest likely secondary to STEMI now status post partially successful PCI - continue to hold antiplatelet and due to intra-abdominal hemorrhage for another 24 hours - continue statin and low-dose ARB and beta-robinson as her blood If arrhythmia recurs will start amiodarone infusion 03/23 Echocardiogram showed: Borderline LV enlargement, moderate LVH. Moderate LV systolic dysfunction, ejection fraction approximately 40%. Diastolic dysfunction is present. Moderate left atrial enlargement. Mild right atrial enlargement. Normal mitral valve structure, mild mitral regurgitation. Mild aortic valve sclerosis, mild aortic stenosis, valve area 1.7 cm2. Mild tricuspid regurgitation, moderate pulmonary hypertension, RVSP 48 mmHg. (4) ST elevation [place] (STEMI): Code(s): I21.3 - ST elevation (STEMI) myocardial infarction of unspecified site Status: Acute Assessment and Plan: see above (5) Ventricular fibrillation: Code(s): I49.01 - Ventricular fibrillation Status: Acute Assessment and Plan: see above (6) Intra abdominal hemorrhage: Code(s): R58 - Hemorrhage, not elsewhere classified Status: Acute Assessment and Plan: patient's chest CT shows small amount of hemoperitoneum with post multiple possible etiologies patient received CPR leading to sternal and rib fractures, patient also received anticoagulation for her PCI, she had is femoral arterial puncture for PCI and also had some bleeding on removal of sheath requiring extended pressure at this time will monitor hemoglobin serially which has been stable groin site at this time does not show any swelling hematoma or bruising hold anticoagulation and antiplatelets for another 24 hours transfuse if needed Coags were in acceptable range (7) Rib fracture: Code(s): S22.39XA - Fracture of one rib, unspecified side, initial encounter for closed fracture Status: Acute Assessment and Plan: patient sustained sternal and right 5th and 6th rib fractures which are likely from CPR no flail chest conservative management (8) Acute kidney injury: Code(s): N17.9 - Acute kidney failure, unspecified Status: Acute Assessment and Plan: baseline creatinine is unknown likely prerenal from cardiac arrest in patient also has mild rhabdomyolysis improved with IV fluids monitor electrolytes urine output and creatinine normal renal ultrasound (9) Hypertension: Code(s): I10 - Essential (primary) hypertension Status: Acute Assessment and Plan: on low-dose Cozaar and beta-robinson blood pressure is in acceptable range as patient is also on propofol sedation (10) Anoxic brain injury: Code(s): G93.1 - Anoxic brain damage, not elsewhere classified Status: Acute Assessment and Plan: on arrival to ICU sedation was discontinued and patient was ass
[2022-03-25] MEDS: LORazepam INJ (*CRX) 2 MG/ML VIAL IV PUSH (10:06)
--- NOTE | 2022-03-25 11:28 | PCFNICU ---
ICU Rounding Note: Pt current nutrition is Vital AF 1.2 at 30 ml/hr. Last recorded weight is 102.9 kg, up from 96.9 kg on admit. Bowel Motility: No BM reported. Labs Reviewed:Glu 124, BUN 21, GFR 53, Na 135 Meds Noted:Propofol 25 wssg=546 kcals, Keppra, Coreg, Crestor, Protonix, Versed, Flagyl Skin: WNL Additional Notes: Patient current with mechanical vent and tube feedings of Vital AF 1.2 at 30 ml/hr over 22 hours. Propofol infusion current at 17.04 ml/hr providing an additional 450 kcals. Total nutrition at this time: 1242 kcals/66 gm protein/535 ml water. Discussed tube feeding rate with Locksmith Apprentice today, if patient remains on current Propofol infusion recommend increasing tube feeding to 40 ml/hr over 22 hours. Free water flush 30 ml q 4 hours. Triglyceride 95 last ran 03/23/22. Agree with diet orders at this time. Following daily in ICU rounds. Will monitor daily in ICU rounds on Tuesday and Tuesday.
[2022-03-25 12:22] LABS: Glucose Point of Care 83 mg/dl (65-105)
--- NOTE | 2022-03-25 14:11 | PM.PNCARD ---
Progress Note: A&P Assessment and Plan (1) ST elevation HI (STEMI): Code(s): I21.3 - ST elevation (STEMI) myocardial infarction of unspecified site Status: Acute Assessment and Plan: Taken to the cardiac label operator emergently last evening following out of hospital cardiac arrest, VF, and EKG with evidence of acute anterior HI. She was found to have a 100% acute occlusion of the distal LAD. Efforts to revascularize this were not successful and the case ended without intervention to the LAD lesion and she was transferred to the ICU in stable but critical condition. Echo showed mildly reduced systolic function with EF 40%. Currently, her aspirin and plavix are on hold due to small acute abdominal hemorrhage. Overall prognosis is guarded. (2) Cardiac arrest: Code(s): I46.9 - Cardiac arrest, cause unspecified Status: Acute Assessment and Plan: Witnessed cardiac arrest at home. Did receive CPR from a bystander prior to EMS arrival. Found to be in VF upon arrival to the emergency department. (3) Intra abdominal hemorrhage: Code(s): R58 - Hemorrhage, not elsewhere classified Status: Acute Assessment and Plan: Chest CT shows small amount of hemoperitoneum. Probably secondary to CPR, anticoagulation for PCI. H&H stable thus far. Hold ASA, plavix. (4) Anoxic brain injury: Code(s): G93.1 - Anoxic brain damage, not elsewhere classified Status: Acute Assessment and Plan: Out of hospital cardiac arrest with unknown down time, medical record indicates that she received CPR from a bystander at home prior to EMS arrival. She did achieve ROSC after 2 rounds of epinephrine/ACLS protocol. Unfortunately she is exhibiting some signs of anoxic brain injury including myoclonic jerking and no purposeful movements with attempts to withdraw sedation. EEG results are pending. Management per critical care. Subjective Date/time seen: 03/25/22 14:11 Interval history: 76-year-old lady with: Out of hospital ventricular fibrillation complicating distal anterior wall HI it out at the apex. Patient was brought for emergency revascularization on presentation following resuscitation and intubation in the field. Partially successful procedure due to extreme tortuosity in the LAD. No other coronary disease was found. Despite a hopeful initial situation where she appeared to be regaining responsiveness in the label operator she clearly has been found now to have significant anoxic cerebral injury. Date of service 03/25/2022: She has completed TTM and rewarming. Underwent EEG, results are not yet available. Overall stable but prognosis is guarded. Review of Systems Review of Systems: ROS unobtainable: Yes unobtainable due to endotracheal tube and unobtainable due to medical condition Exam Const: General: ill appearing acutely Orientation/consciousness: No patient oriented x3 Other: intubated elderly lady HENMT: Head: normal to inspection Mouth: Yes moist mucous membranes Other: Tongue swollen and ecchymotic Eyes: General: appearance normal, both eyes and all related structures Sclera: sclerae normal Neck: Neck: supple Other: Triple lumen central line RIJ Chest: Chest palpation & inspection: normal inspection of the chest Resp: Effort & Inspection: other (mechanically ventilated ) Auscultation: clear to auscultation bilaterally (only able to auscultate anteriorally ) Other: Cardio: Rate: regular rate Rhythm: regular rhythm Heart sounds: no murmurs Other: GI: Inspection: abdominal wall ecchymosis Auscultation: normal bowel sounds Urinary Catheter: Urinary Catheter: patent and draining Skin: General skin exam: normal color Other: Groin arterial insertion site free from bleeding, hematoma Neuro: General: No patient oriented x3 Speech: No normal speech Motor exam (neuro): Motor abnormalites present myoclonus Other: Intubated and sedated Extrem: Genera
[2022-03-25] MEDS: METOPROLOL TARTRATE INJ 5 MG/5 ML VIAL IV PUSH (15:46)
[2022-03-25 18:05] LABS: Glucose Point of Care 113 mg/dl (65-105)
[2022-03-25] MEDS: ACETAMINOPHEN ELIXIR 325 MG/10.15 ML UDC 650 MG FEED TUBE (20:09)
[2022-03-25 20:51] LABS: Glucose Point of Care 110 mg/dl (65-105)
--- NOTE | 2022-03-25 21:24 | P.NEURO_ITS ---
Neurology EEG Report General Information Date of Study: 03/25/22 TEST EEG DIAGNOSIS Unresponsiveness . CONDITION OF RECORDING COMA. Off sedation. CLINICAL HISTORY Unresponsiveness after cardiac arrest/ Ventricular fibrillation. Respiratory failure. Possible aspiration pneumonia. Myoclonic jerks and tremor. CT of the head with possible recent left frontoparietal and old bioccipital cerebral infarcts. . EEG DESCRIPTION There were medium to high amplitude, synchronous , symmetric and bifrontally predominant generalized periodic discharges ( GPDs) throughout the recording at frequency of 1.5 -2.5 Htz. No distinct epileptiform activity was seen. Hyperventilation and photic stimulation were not performed. IMPRESSION This EEG was abnormal due the presence of generalized periodic discharges . This EEG is indicative of the presence of severe, bihemispheric cerebral dysfunction of the type most commonly seen in the setting of severe toxico- metabolic encephalopathies or anoxic-ischemic brain injury. Generalized periodic discharges are commonly associated with a high risk of seizure. Clinical correlation and MRI of the brain are recommended.
[2022-03-26] VITALS (29 sets, daily range): BP systolic 86–162; BP diastolic 54–95; PULSE 71–116; RESP 16–20; TEMP 35.9–37.9; O2SAT 96–100
[2022-03-26] MEDS: AZTREONAM 1 GM in DEXTROSE 5% IN WATER 50 ML 100 ML IVPB ×3 (00:23→16:01)
[2022-03-26] MEDS: DEXTROSE 10% 1,000 ML 30 ML IV CONT (00:23)
[2022-03-26 00:39] LABS: Glucose Point of Care 114 mg/dl (65-105)
[2022-03-26] MEDS: CENTRAL LINE FLUSH 10 ML IV PUSH ×4 (01:12→22:04)
[2022-03-26] MEDS: PROPOFOL IV EMULSION 100 ML 17.04 MG IV CONT (02:26)
[2022-03-26] MEDS: levETIRAcetam 1000MG/NACL100ML 1,000 MG/100 ML BAG 400 MG IVPB ×2 (04:26→15:53)
[2022-03-26 04:48] LABS: Hematocrit 29.6 % (37.0-47.0); Hemoglobin 9.5 g/dL (12.0-15.0); Mean Corpuscular HGB Conc 32.1 g/dl (32-36); Mean Corpuscular Hemoglobin 21.4 pg (26-34); Mean Corpuscular Volume 66.8 fl (80-100); Mean Platelet Volume 9.9 fl (7.4-10.4); Platelet Count Result 263 k/mm3 (150-375); Red Blood Count 4.43 M/mm3 (4.2-5.4); Red Cell Distribution Width 16.6 % (11.5-14.5); White Blood Count 12.9 K/mm3 (4.5-10.0)
[2022-03-26 04:57] LABS: Alanine Aminotransferase 78 U/L (4-35); Albumin Level 2.8 g/dL (3.5-5.1); Alkaline Phosphatase 102 U/L (38-126); Anion Gap 5 mmol/L (8-16); Aspartate Amino Transferase 126 U/L (14-36); Bilirubin,Total 0.2 mg/dL (0.2-1.3); Blood Urea Nitrogen 22 mg/dL (7-17); Calcium 7.3 mg/dL (8.4-10.2); Carbon Dioxide 23 mmol/L (22-30); Chloride 104 mmol/L (98-107); Creatine Kinase 114 U/L (30-135); Estimated CRCL calculation 49 ml/min; Estimated Glomerular Filt Rate > 60; Glucose 122 mg/dL (65-110); Potassium 3.8 mmol/L (3.4-5.0); Sodium 132 mmol/L (137-145)
[2022-03-26 04:58] LABS: Alveolar/Arterial O2 Gradient 72.7 mmHg; Base Excess ABG -3.7 mEq/l (+/-2.0); Carboxyhemoglobin 0.3 % THb (0-2.0); Fractional Inspired Oxygen 30 %; HCO3 ABG 20.6 mEq/l (22.0-26.0); Methemoglobin ABG 0.2 %THb (0-1.5); Oxygen Content ABG 14.5 %vol (16.0-22.0); Oxygen Saturation ABG 97.6 % (95.0-100.0); Oxyhemoglobin 96.9 % THb (90.0-100.0); PCO2 ABG 34.5 mmHg (35.0-45.0); PO2 ABG 100.7 mmHg (80.0-100.0); PO2 FiO2 Ratio Arterial Blood 3.36 %; Reduced Hemoglobin 2.6 %THb (0-5.0); Total Hemoglobin 10.5 g/dL (12.0-18.0); pH ABG 7.394 (7.350-7.450)
[2022-03-26 04:59] LABS: Device VENTILATOR; Modified Allen's Test Pass; Site Drawn LEFT BRACHIAL
[2022-03-26 05:00] LABS: Arterial Blood Gas PEEP 5 cmH2O; Arterial Blood Gas Tidal Volume 400 ml; Arterial Blood Gas Vent Mode CMV; Arterial Blood Gas Ventilator rate 16 /MIN
[2022-03-26 05:05] LABS: INR 1.4; Prothrombin Time 16.6 Seconds (11.1-14.7)
[2022-03-26 05:06] LABS: Partial Thromboplastin Time 44.7 SECONDS (22.3-36.8)
[2022-03-26] MEDS: metroNIDAZOLE 500 MG/ISO 100ML 500 MG/100 ML BAG 200 MG IVPB (05:50)
[2022-03-26] MEDS: MINERAL OIL/WHITE PETROLATUM OINTMENT 1 APPLIC EACH EYE ×2 (08:06→21:47)
[2022-03-26] MEDS: PANTOPRAZOLE SODIUM IV 40 MG VIAL IV PUSH (08:07)
[2022-03-26] MEDS: carvediloL 3.125 MG TABLET PO (08:07)
[2022-03-26] MEDS: LOSARTAN POTASSIUM 12.5 MG TABLET PO (08:07)
[2022-03-26] MEDS: ROSUVASTATIN 10 MG TABLET 20 MG PO (08:07)
[2022-03-26 08:48] LABS: Appearance Urine Clear (Clear); Bilirubin Urine Negative (Negative); Blood Urine Negative (Negative); Color Urine Yellow (Yellow); Glucose Urine UA Negative (Negative); Ketones Urine Negative (Negative); Leukocyte Esterase Ur Trace LEU/UL (NEGATIVE); Nitrate Urine Negative (Negative); Protein Urine 1+ mg/dL (Negative); Specific Grav Ur 1.025 (1.001-1.035); Urobilinogen Urine 0.2 mg/dL (<2.0)
[2022-03-26 08:55] LABS: Bacteria Urine Trace /hpf; Mucus Urine Rare /lpf
[2022-03-26 08:58] LABS: Add Urine Microscopic? YES
--- NOTE | 2022-03-26 09:17 | WPDINTPN ---
Progress Note: A&P Assessment and Plan (1) Acute respiratory failure: Code(s): J96.00 - Acute respiratory failure, unspecified whether with hypoxia or hypercapnia Status: Acute Assessment and Plan: Acute Respiratory failure secondary to cardiac arrest, possible aspiration pneumonia Continue full mechanical ventilation support to prevent hypoxemia/hypercarbia and end organ damage. ABG, chest CT and PCXR reviewed, PEEP of 5 and Fio2 30% - Weaned off sedation (03/25) for EEG but pt had tremors, so was given Ativan and restarted on propofol after EEG was completed - continue aztreonam (03/23) and vancomycin (03/26) pneumonia - 03/23 Urine and Blood cultures are negative Sputum cultures pending, procalcitonin level 0.6 (2) Aspiration pneumonia: Code(s): J69.0 - Pneumonitis due to inhalation of food and vomit Status: Acute Assessment and Plan: see above (3) Cardiac arrest: Code(s): I46.9 - Cardiac arrest, cause unspecified Status: Acute Assessment and Plan: VFib cardiac arrest likely secondary to STEMI 03/22/22: status post partially successful PCI - continue to hold antiplatelet and due to intra-abdominal hemorrhage as hemoglobin continues to drift down - continue statin and low-dose ARB and beta-robinson as her blood If arrhythmia recurs will start amiodarone infusion 03/23 Echocardiogram showed: Borderline LV enlargement, moderate LVH. Moderate LV systolic dysfunction, ejection fraction approximately 40%. Diastolic dysfunction is present. Moderate left atrial enlargement. Mild right atrial enlargement. Normal mitral valve structure, mild mitral regurgitation. Mild aortic valve sclerosis, mild aortic stenosis, valve area 1.7 cm2. Mild tricuspid regurgitation, moderate pulmonary hypertension, RVSP 48 mmHg. (4) ST elevation SD (STEMI): Code(s): I21.3 - ST elevation (STEMI) myocardial infarction of unspecified site Status: Acute Assessment and Plan: see above (5) Ventricular fibrillation: Code(s): I49.01 - Ventricular fibrillation Status: Acute Assessment and Plan: see above (6) Intra abdominal hemorrhage: Code(s): R58 - Hemorrhage, not elsewhere classified Status: Acute Assessment and Plan: patient's chest CT shows small amount of hemoperitoneum with post multiple possible etiologies patient received CPR leading to sternal and rib fractures, patient also received anticoagulation for her PCI, she had is femoral arterial puncture for PCI and also had some bleeding on removal of sheath requiring extended pressure at this time will monitor hemoglobin serially which has been stable but gradually drifting down. Will continue to hold aspirin and Plavix groin site at this time does not show any swelling hematoma or bruising hold anticoagulation and antiplatelets for another 24 hours transfuse if needed Coags were in acceptable range (7) Rib fracture: Code(s): S22.39XA - Fracture of one rib, unspecified side, initial encounter for closed fracture Status: Acute Assessment and Plan: patient sustained sternal and right 5th and 6th rib fractures which are likely from CPR no flail chest conservative management (8) Acute kidney injury: Code(s): N17.9 - Acute kidney failure, unspecified Status: Acute Assessment and Plan: baseline creatinine is unknown likely prerenal from cardiac arrest in patient also has mild rhabdomyolysis improved with IV fluids monitor electrolytes urine output and creatinine normal renal ultrasound -creatinine 1.0 this morning -low urine output, have on assist nurse to flush the [place] (9) Hypertension: Code(s): I10 - Essential (primary) hypertension Status: Acute Assessment and Plan: on low-dose Cozaar and beta-robinson blood pressure is in acceptable range as patient is also on propofol sedation (10) Anoxic brain injury: Co
[2022-03-26] MEDS: PROPOFOL IV EMULSION 100 ML 13.63 MG IV CONT ×2 (09:43→15:54)
[2022-03-26] MEDS: VALPROIC ACID INJ 500 MG in DEXTROSE 5% 100 ML 100 MG IVPB ×2 (10:27→18:49)
--- NOTE | 2022-03-26 11:30 | PCNFU ---
Nutrition Follow-Up Complete: Inadequate Oral intake as related to mechanical ventilation as related to NPO. Goal: Meet estimated nutritional needs Patient is progressing towards goal. We will continue current goal. Pt current nutrition is Vital AF 1.2 at 40 ml/hr over 22 hours. Last recorded weight is 103.2 kg, up from 96.9 kg on admit. Bowel Motility:No BM reported. Labs Reviewed:Glu 122, Na 132, Hct 39.6,Hgb 9.5,BUN 22 Meds Noted:Propofol at 20 ml/la=355 kcals, Versed, Keppra, Ativan,Flagyl, Coreg, Cozaar, Protonix, Vancomycin, Dextrose 10% Skin: WNL Additional Notes: Patient remains on mechanical vent and tube feedings of Vital AF 1.2 at 40 ml/hr. Propofol Infusion down from 25 mcg to 20 mcg. Total nutrition: 1416 kcals/66 gms protein/714 ml water. Meeting 93% of caloric needs and 100% protein needs. Free water flush 30 ml q 4 hours. Once propofol infusion is discontinued recommend tube feeding goal rate at 55 ml/hr over 22 hours. Agree with diet orders at this time. Monitoring: Will monitor daily in ICU rounds as reassess every Tuesday and Tuesday.
[2022-03-26 11:54] LABS: Glucose Point of Care 113 mg/dl (65-105)
--- NOTE | 2022-03-26 12:16 | ECG_ITS ---
Measurements Intervals [place] Rate: 82 P: CT: 0 QRS: 5 QRSD: 113 T: 237 QT: 412 QTc: 482 Interpretive Statements ATRIAL FIBRILLATION INTRAVENTRICULAR CONDUCTION DELAY ST-T WAVE ABNORMALITY IN ANTEROLAT/HIGH LAT LEADS- CONSIDER ISCHEMIA BASELINE ARTIFACT- I, III, V3-V4 ABNORMAL ECG Electronically Signed On 03-29-2022 16:41:04 CDT by Juvenal Lange D.O.
--- NOTE | 2022-03-26 14:46 | PM.IMPN ---
Progress Note: A&P Assessment and Plan (1) Anoxic brain injury: Code(s): G93.1 - Anoxic brain damage, not elsewhere classified Status: Acute Assessment and Plan: Patient was down for approximately 18 minutes prior to ROSC. Brain CT showing small region of gyral enhancement at the left frontoparietal region most likely CVA. Also of note are bilateral occipital lobe infarcts subacute versus chronic. Patient without history of stroke. She has completed the cooling protocol. Repeat CT brain 03/24 some areas with loss of varenr-white differentiation suggestive of toxic brain injury and subacute bilateral occipital lobe infarcts. Plavix on hold due to patient abdominal hemorrhage. EEG noted showing generalized periodic discharges c/w severe, bihemispheric cerebral dysfunction. She remains sedated at this time. Continue Keppra and VPA.Neurology consulted and appreciate their input. Wean sedation when able so as to be able to assess mental status (2) Ventricular fibrillation: Code(s): I49.01 - Ventricular fibrillation Status: Acute Assessment and Plan: Patient with VFib arrest in the field. CPR started immediately by family and then by EMS. Shocked once which resulted in PEA. [place] related to STEMI/ischemia. Continue Coreg. Continue to monitor on telemetry. Appreciate Cardiology input. (3) Cardiac arrest: Code(s): I46.9 - Cardiac arrest, cause unspecified Status: Acute Assessment and Plan: Patient with acute cardiac arrest in the field. STEMI called in the field and patient underwent left heart catheterization on arrival. She had balloon angioplasty but no stent placement to the distal LAD. Continue Crestor, Cozaar and Coreg. Plavix and aspirin on hold at this time due to intra-abdominal hemorrhage. Appreciate Cardiology input. (4) ST elevation NC (STEMI): Code(s): I21.3 - ST elevation (STEMI) myocardial infarction of unspecified site Status: Acute Assessment and Plan: Inferior STEMI noted by EKG in the field once ROSC was achieved. Left heart catheterization on admission with single-vessel CAD with acute NC with total acute occlusion of the terminal apical portion of the LAD. Very tortuous LAD, anomalous non-diseased RCA and non-diseased LCx. Patient is status post balloon angioplasty with some improvement in flow to the distal LAD. Echo showing EF 40-45% and diastolic dysfunction, moderate LAE, mild valvular disease and moderate pulmonary HTN. Continue medical management. (5) Acute respiratory failure: Code(s): J96.00 - Acute respiratory failure, unspecified whether with hypoxia or hypercapnia Status: Acute Assessment and Plan: As above. Acute respiratory failure related to her cardiac arrest. Patient may have aspirated as well contributing to her acute respiratory failure. She remains on abx for possible aspiration pneumonia. Continue mechanical ventilation. Appreciate flattening machine operator input. (6) Aspiration pneumonia: Code(s): J69.0 - Pneumonitis due to inhalation of food and vomit Status: Acute Assessment and Plan: CT the chest showing acute fracture of the sternum and right 5th and 6th ribs. Chest CT also shows mild atelectasis but no significant infiltrates. White count slowly trending down. Patient with persistent low-grade fever now. Continue IV antibiotics. Continue to follow. (7) Atrial fibrillation: Code(s): I48.91 - Unspecified atrial fibrillation Status: Acute Assessment and Plan: EKG showing AFib. Unclear if this was evident prior to the cardiac arrest or due to it. She converted to NSR but now back in AFIb. No anticoagulation at this time. Echo noted but no obvious thrombus. Continue Coreg. (8) Intra abdominal hemorrhage: Code(s): R58 - Hemorrhage, not elsewhere classified Status: Acute Assessment and Plan: Chest CT also shows fat stranding around the pancreas co
[2022-03-26] MEDS: ALBUMIN HUMAN 25% 25 GM/100 ML 100 ML IVPB ×2 (14:57→17:12)
--- NOTE | 2022-03-26 15:48 | PM.PNCARD ---
Progress Note: A&P Assessment and Plan (1) ST elevation VT (STEMI): Code(s): I21.3 - ST elevation (STEMI) myocardial infarction of unspecified site Status: Acute Assessment and Plan: Taken to the cardiac cathead worker emergently last evening following out of hospital cardiac arrest, VF, and EKG with evidence of acute anterior VT. She was found to have a 100% acute occlusion of the distal LAD. Efforts to revascularize this were not successful and the case ended without intervention to the LAD lesion and she was transferred to the ICU in stable but critical condition. Echo showed mildly reduced systolic function with EF 40%. Currently, her aspirin and plavix are on hold due to small acute abdominal hemorrhage. Overall prognosis is guarded. (2) Cardiac arrest: Code(s): I46.9 - Cardiac arrest, cause unspecified Status: Acute Assessment and Plan: Witnessed cardiac arrest at home. Did receive CPR from a bystander prior to EMS arrival. Found to be in VF upon arrival to the emergency department. (3) Intra abdominal hemorrhage: Code(s): R58 - Hemorrhage, not elsewhere classified Status: Acute Assessment and Plan: Chest CT shows small amount of hemoperitoneum. Probably secondary to CPR, anticoagulation for PCI. H&H stable thus far. Hold ASA, plavix. Hemoglobin is still drifting down. CT scan pending. When able, would start clopidogrel 75 mg p.o. daily. (4) Anoxic brain injury: Code(s): G93.1 - Anoxic brain damage, not elsewhere classified Status: Acute Assessment and Plan: Out of hospital cardiac arrest with unknown down time, medical record indicates that she received CPR from a bystander at home prior to EMS arrival. She did achieve ROSC after 2 rounds of epinephrine/ACLS protocol. Unfortunately she is exhibiting some signs of anoxic brain injury including myoclonic jerking and no purposeful movements with attempts to withdraw sedation. EEG results are pending. Management per critical care. (5) Paroxysmal atrial fibrillation: Code(s): I48.0 - Paroxysmal atrial fibrillation Status: Acute Assessment and Plan: Back in atrial fibrillation at present. Hold off on anticoagulation for now given intra-abdominal hemorrhage and hemoglobin which is drifting down. , Subjective Date/time seen: 03/26/22 15:48 Interval history: 76-year-old lady with: Out of hospital ventricular fibrillation complicating distal anterior wall VT it out at the apex. Patient was brought for emergency revascularization on presentation following resuscitation and intubation in the field. Partially successful procedure due to extreme tortuosity in the LAD. No other coronary disease was found. Despite a hopeful initial situation where she appeared to be regaining responsiveness in the cathead worker she clearly has been found now to have significant anoxic cerebral injury. Date of service 03/25/2022: She has completed TTM and rewarming. Underwent EEG, results are not yet available. Overall stable but prognosis is guarded. Date of service 03/26/2022: Not responsive. Went into atrial fibrillation earlier today. Review of Systems Review of Systems: ROS unobtainable: Yes unobtainable due to endotracheal tube and unobtainable due to medical condition Exam Const: General: ill appearing acutely Orientation/consciousness: No patient oriented x3 Other: intubated elderly lady HENMT: Head: normal to inspection Mouth: Yes moist mucous membranes Other: Tongue swollen and ecchymotic Eyes: General: appearance normal, both eyes and all related structures Sclera: sclerae normal Neck: Neck: supple Other: Triple lumen central line RIJ Chest: Chest palpation & inspection: normal inspection of the chest Resp: Effort & Inspection: other (mechanically ventilated ) Other: Coarse breath sounds bilaterally Cardio: Rate: regular rate Rhythm: abnormal rhythm irregularly irregula
[2022-03-26 18:56] LABS: Glucose Point of Care 113 mg/dl (65-105)
[2022-03-26] MEDS: carvediloL 6.25 MG TABLET PO (22:03)
[2022-03-27] VITALS (28 sets, daily range): BP systolic 94–150; BP diastolic 64–109; PULSE 66–113; RESP 16–24; TEMP 35.8–37.4; O2SAT 95–100
[2022-03-27] MEDS: PROPOFOL IV EMULSION 100 ML 10.22 MG IV CONT (00:41)
[2022-03-27] MEDS: AZTREONAM 1 GM in DEXTROSE 5% IN WATER 50 ML 100 ML IVPB ×3 (00:41→17:52)
[2022-03-27] MEDS: ALBUMIN HUMAN 25% 25 GM/100 ML 100 ML IVPB ×2 (00:41→06:02)
[2022-03-27 01:04] LABS: Glucose Point of Care 140 mg/dl (65-105)
[2022-03-27] MEDS: levETIRAcetam 1000MG/NACL100ML 1,000 MG/100 ML BAG 400 MG IVPB ×3 (03:23→17:25)
[2022-03-27] MEDS: VALPROIC ACID INJ 500 MG in DEXTROSE 5% 100 ML 100 MG IVPB (03:44)
[2022-03-27 04:58] LABS: Alveolar/Arterial O2 Gradient 73.2 mmHg; Carboxyhemoglobin 0.3 % THb (0-2.0); Fractional Inspired Oxygen 30 %; HCO3 ABG 19.3 mEq/l (22.0-26.0); Methemoglobin ABG 0.3 %THb (0-1.5); Oxygen Content ABG 14.4 %vol (16.0-22.0); Oxygen Saturation ABG 98.1 % (95.0-100.0); Oxyhemoglobin 97.1 % THb (90.0-100.0); PCO2 ABG 29.4 mmHg (35.0-45.0); PO2 ABG 106.2 mmHg (80.0-100.0); PO2 FiO2 Ratio Arterial Blood 3.54 %; Reduced Hemoglobin 2.3 %THb (0-5.0); Total Hemoglobin 10.4 g/dL (12.0-18.0); pH ABG 7.436 (7.350-7.450)
[2022-03-27 05:03] LABS: Device VENTILATOR; Modified Allen's Test Unable to perform; Site Drawn LEFT RADIAL
[2022-03-27 05:04] LABS: Arterial Blood Gas PEEP 5 cmH2O; Arterial Blood Gas Tidal Volume 400 ml; Arterial Blood Gas Vent Mode CMV; Arterial Blood Gas Ventilator rate 16 /MIN
[2022-03-27] MEDS: CENTRAL LINE FLUSH 10 ML IV PUSH ×4 (06:03→20:12)
[2022-03-27 06:08] LABS: Glucose Point of Care 131 mg/dl (65-105)
[2022-03-27 06:33] LABS: Alanine Aminotransferase 55 U/L (4-35); Albumin Level 3.4 g/dL (3.5-5.1); Alkaline Phosphatase 80 U/L (38-126); Anion Gap 6 mmol/L (8-16); Aspartate Amino Transferase 98 U/L (14-36); Bilirubin,Total 0.3 mg/dL (0.2-1.3); Blood Urea Nitrogen 27 mg/dL (7-17); Calcium 7.9 mg/dL (8.4-10.2); Carbon Dioxide 22 mmol/L (22-30); Chloride 103 mmol/L (98-107); Creatine Kinase 59 U/L (30-135); Estimated CRCL calculation 49 ml/min; Estimated Glomerular Filt Rate > 60; Glucose 131 mg/dL (65-110); Magnesium 2.1 mg/dL (1.6-2.3); Phosphorus 3.5 mg/dL (2.5-4.5); Sodium 131 mmol/L (137-145)
[2022-03-27] MEDS: LORazepam INJ (*CRX) 2 MG/ML VIAL IV PUSH ×2 (08:17→18:20)
[2022-03-27] MEDS: PANTOPRAZOLE SODIUM IV 40 MG VIAL IV PUSH (08:24)
[2022-03-27] MEDS: carvediloL 6.25 MG TABLET PO ×2 (08:24→20:12)
[2022-03-27] MEDS: MINERAL OIL/WHITE PETROLATUM OINTMENT 1 APPLIC EACH EYE ×2 (08:24→20:12)
[2022-03-27] MEDS: LOSARTAN POTASSIUM 12.5 MG TABLET PO (08:24)
[2022-03-27] MEDS: ROSUVASTATIN 10 MG TABLET 20 MG PO (08:24)
--- NOTE | 2022-03-27 08:58 | WPDINTPN ---
Progress Note: A&P Assessment and Plan (1) Acute respiratory failure: Code(s): J96.00 - Acute respiratory failure, unspecified whether with hypoxia or hypercapnia Status: Acute Assessment and Plan: Acute Respiratory failure secondary to cardiac arrest, possible aspiration pneumonia Continue full mechanical ventilation support to prevent hypoxemia/hypercarbia and end organ damage. ABG, chest CT and PCXR reviewed, PEEP of 5 and Fio2 30% - Weaned off sedation (03/25) for EEG but pt had tremors, so was given Ativan and restarted on propofol after EEG was completed - continue aztreonam (03/23) and vancomycin (03/26) for pneumonia - 03/23 Urine and Blood cultures are negative Sputum cultures pending, procalcitonin level 0.6 (2) Aspiration pneumonia: Code(s): J69.0 - Pneumonitis due to inhalation of food and vomit Status: Acute Assessment and Plan: see above (3) Cardiac arrest: Code(s): I46.9 - Cardiac arrest, cause unspecified Status: Acute Assessment and Plan: VFib cardiac arrest likely secondary to STEMI 03/22/22: status post partially successful PCI - continue to hold antiplatelet and due to intra-abdominal hemorrhage as hemoglobin continues to drift down, discussed with Cardiology - continue statin and low-dose ARB, increased Coreg does 6.25 mg q.12 hours If arrhythmia recurs will start amiodarone infusion, 03/23 Echocardiogram showed: Borderline LV enlargement, moderate LVH. Moderate LV systolic dysfunction, ejection fraction approximately 40%. Diastolic dysfunction is present. Moderate left atrial enlargement. Mild right atrial enlargement. Normal mitral valve structure, mild mitral regurgitation. Mild aortic valve sclerosis, mild aortic stenosis, valve area 1.7 cm2. Mild tricuspid regurgitation, moderate pulmonary hypertension, RVSP 48 mmHg. (4) ST elevation [place] (STEMI): Code(s): I21.3 - ST elevation (STEMI) myocardial infarction of unspecified site Status: Acute Assessment and Plan: see above (5) Ventricular fibrillation: Code(s): I49.01 - Ventricular fibrillation Status: Acute Assessment and Plan: see above (6) Intra abdominal hemorrhage: Code(s): R58 - Hemorrhage, not elsewhere classified Status: Acute Assessment and Plan: patient's chest CT shows small amount of hemoperitoneum with post multiple possible etiologies patient received CPR leading to sternal and rib fractures, patient also received anticoagulation for her PCI, she had is femoral arterial puncture for PCI and also had some bleeding on removal of sheath requiring extended pressure at this time will monitor hemoglobin serially which has been stable but gradually drifting down. Will continue to hold aspirin and Plavix groin site at this time does not show any swelling hematoma or bruising hold anticoagulation and antiplatelets for another 24 hours transfuse if needed Coags were in acceptable range 03/26/2022 CT scan of the abdomen and pelvis Small pleural effusions. 2. Airspace opacities in the lower lobes with volume loss, likely predominantly atelectasis. Pneumonia cannot be excluded. 3. Acute fractures of right fifth and sixth ribs again seen. (7) Rib fracture: Code(s): S22.39XA - Fracture of one rib, unspecified side, initial encounter for closed fracture Status: Acute Assessment and Plan: patient sustained sternal and right 5th and 6th rib fractures which are likely from CPR no flail chest conservative management (8) Acute kidney injury: Code(s): N17.9 - Acute kidney failure, unspecified Status: Acute Assessment and Plan: RESOLVED baseline creatinine is unknown Initial acute kidney injury likely prerenal from cardiac arrest in patient also has mild rhabdomyolysis improved with IV fluids monitor electrolytes urine output and creatinine normal renal ultrasound -creatinine 1.0 this morning
[2022-03-27 10:06] LABS: Basophils Percent Auto 0.1 % (0.2-1.2); Eosinophils Percent Auto 0.2 % (0-4.4); Hematocrit 26.8 % (37.0-47.0); Hemoglobin 8.4 g/dL (12.0-15.0); Immature Granulocyte Absolute 0.04 K/mm3 (0.00-0.031); Immature Granulocyte Percent A 0.4 % (0-0.5); Lymphocytes Absolute Auto 1.11 K/mm3 (0.9-3.2); Lymphocytes Percent Auto 12.4 % (18.3-44.2); Mean Corpuscular HGB Conc 31.3 g/dl (32-36); Mean Corpuscular Hemoglobin 21.4 pg (26-34); Mean Corpuscular Volume 68.4 fl (80-100); Mean Platelet Volume 9.3 fl (7.4-10.4); Monocytes Absolute Auto 0.6 K/mm3 (0.1-0.6); Monocytes Percent Auto 7.1 % (2.6-8.5); Neutrophils Absolute Auto 7.1 K/mm3 (1.3-6.7); Neutrophils Percent Auto 79.8 % (45.5-73.1); Platelet Count Result 212 k/mm3 (150-375); Red Blood Count 3.92 M/mm3 (4.2-5.4); Red Cell Distribution Width 16.6 % (11.5-14.5); White Blood Count 8.9 K/mm3 (4.5-10.0)
[2022-03-27 12:32] LABS: Glucose Point of Care 144 mg/dl (65-105)
[2022-03-27] MEDS: polyethylene glycoL 3350 17 GM POWD.PACK PO (12:52)
--- NOTE | 2022-03-27 15:47 | PM.PNCARD ---
Progress Note: A&P Assessment and Plan (1) ST elevation [place] (STEMI): Code(s): I21.3 - ST elevation (STEMI) myocardial infarction of unspecified site Status: Acute Assessment and Plan: Taken to the cardiac laborer [facility] emergently last evening following out of hospital cardiac arrest, VF, and EKG with evidence of acute anterior [place]. She was found to have a 100% acute occlusion of the distal LAD. Efforts to revascularize this were not successful and the case ended without intervention to the LAD lesion and she was transferred to the ICU in stable but critical condition. Echo showed mildly reduced systolic function with EF 40%. Currently, her aspirin and plavix are on hold due to small acute abdominal hemorrhage. (2) Cardiac arrest: Code(s): I46.9 - Cardiac arrest, cause unspecified Status: Acute Assessment and Plan: Witnessed cardiac arrest at home. Did receive CPR from a bystander prior to EMS arrival. Found to be in VF upon arrival to the emergency department. (3) Intra abdominal hemorrhage: Code(s): R58 - Hemorrhage, not elsewhere classified Status: Acute Assessment and Plan: Chest CT shows small amount of hemoperitoneum. Probably secondary to CPR, anticoagulation for PCI. H&H stable thus far. Hold ASA, plavix. Hemoglobin is still drifting down. CT scan pending. When able, would start clopidogrel 75 mg p.o. or ASA 81 mg daily. (4) Anoxic brain injury: Code(s): G93.1 - Anoxic brain damage, not elsewhere classified Status: Acute Assessment and Plan: Out of hospital cardiac arrest with unknown down time, medical record indicates that she received CPR from a bystander at home prior to EMS arrival. She did achieve ROSC after 2 rounds of epinephrine/ACLS protocol. Unfortunately she is exhibiting some signs of anoxic brain injury including myoclonic jerking and no purposeful movements with attempts to withdraw sedation. EEG results are pending. Management per critical care. (5) Paroxysmal atrial fibrillation: Code(s): I48.0 - Paroxysmal atrial fibrillation Status: Acute Assessment and Plan: Back in atrial fibrillation at present. Hold off on anticoagulation for now given intra-abdominal hemorrhage and hemoglobin which is drifting down. , Additional Plan Subjective Date/time seen: 03/27/22 15:47 Interval history: no acute events sedated and intubated Review of Systems Review of Systems: ROS unobtainable: Yes unobtainable due to endotracheal tube Exam Const: General: ill appearing acutely Orientation/consciousness: No patient oriented x3 Other: intubated elderly lady HENMT: Head: normal to inspection Mouth: Yes moist mucous membranes Other: Tongue swollen and ecchymotic Eyes: General: appearance normal, both eyes and all related structures Sclera: sclerae normal Neck: Neck: supple Other: Triple lumen central line RIJ Chest: Chest palpation & inspection: normal inspection of the chest Resp: Effort & Inspection: other (mechanically ventilated ) Auscultation: clear to auscultation bilaterally (only able to auscultate anteriorally ) Other: Coarse breath sounds bilaterally Cardio: Rate: regular rate Rhythm: abnormal rhythm irregularly irregular Heart sounds: no murmurs Other: GI: Inspection: abdominal wall ecchymosis Auscultation: normal bowel sounds Urinary Catheter: Urinary Catheter: patent and draining Skin: General skin exam: normal color Other: Groin arterial insertion site free from bleeding, hematoma Neuro: General: No patient oriented x3 Speech: No normal speech Motor exam (neuro): Motor abnormalites present myoclonus Other: Intubated and sedated Extrem: General: normal to inspection Psych: Appearance: grossly abnormal Mental Status: mental status grossly abnormal Objective Data Vital Signs Vital Signs: Vital Signs - 24 hr 03/26/22 16:00 03/26/22 17:15 03/26/22 18:00 Temper
--- NOTE | 2022-03-27 16:31 | PM.IMPN ---
Progress Note: A&P Assessment and Plan (1) Paroxysmal atrial fibrillation: Code(s): I48.0 - Paroxysmal atrial fibrillation Status: Acute (2) Atrial fibrillation: Code(s): I48.91 - Unspecified atrial fibrillation Status: Acute (3) Anoxic brain injury: Code(s): G93.1 - Anoxic brain damage, not elsewhere classified Status: Acute (4) Elevated LFTs: Code(s): R79.89 - Other specified abnormal findings of blood chemistry Status: Acute (5) Hypoglycemia: Code(s): E16.2 - Hypoglycemia, unspecified Status: Acute Additional Plan # anoxic brain injury # seizure activity # cardiac arrest # acute hypoxic respiratory failure secondary to cardiac arrest - patient EEG on 03/25/2022 with signs of seizure activity associated with her tremors with generalized periodic discharges severe bihemispheric cerebral dysfunction, likely from her anoxia -Patient is still having tremors she had bilateral lower extremity tremors and Keppra Depakote has been increased - on my evaluation she still had right lower extremity tremors - etiology may be from aspiration pneumonia, antibiotics: Aztreonam 03/23-, vancomycin 03/26- - sedation: Propofol, off versed - CT head with findings of bilateral occipital lobe infarcts subacute - seizure: Increase Keppra to 1 g q.8 hours, valproic acid to 750 mg q.8 hours, Ativan p.r.n. 2 mg q.2 hours - Coreg BID #hemoperitoneum -no blood thinners - hemoglobin stable -holding aspirin and Plavix # hypoglycemia -hypoglycemia protocol - continue D10 # acute kidney injury -resolved - etiology likely prerenal from her cardiac arrest # rib fractures from CPR - supportive care # other chronic conditions -paroxysmal atrial fibrillation: Holding anticoagulation with bleeding -Cardiology consulted, appreciate recommendations Diet: tube feeds DVT prophylaxis: SCDs, no chemoprophylaxis with hemoperitoneum GI prophylaxis: PPI Code status: Full code Disposition: Continue ICU Prognosis: Very poor, will need to readdress goals of care. retort press operator talking to family Time Spent With Patient Time with patient: 25 - 35 minutes Subjective Date/time seen: 03/27/22 16:31 patient seen examined. Patient intubated sedated, she has some twitching of her right toes which is unclear if this is seizure activity. Discussed case with nurse and retort press operator. AEDs have been uptitrated today Keppra and valproic acid. P.r.n. Ativan available. EEG on 03/25 showed seizure activity associated with tremors. Antibiotics: Continue azithromycin and vancomycin. Review of Systems Review of Systems: ROS unobtainable: Yes unobtainable due to endotracheal tube Exam Narrative: - GENERAL: chronically ill-appearing intubated woman - EYES: pupils reactive - HENT: ET tube in place, OG tube in place - LUNGS: coarse lung sounds bilaterally, rhonchorous - CARDIOVASCULAR: Regular rate and rhythm. - ABDOMEN: Soft, no palpable masses - : Ayers in place - EXTREMITIES: No edema. Peripheral pulses 2+ - NEUROLOGIC: sedated, unresponsive. gag reflex present. right toes tremors - SKIN: No rashes or lesions. Warm. Objective Data Vital Signs Vital Signs: Vital Signs - 24 hr 03/26/22 17:15 03/26/22 18:00 03/26/22 20:00 Temperature 37.0 C 36.5 C Pulse Rate 78 71 74 Respiratory Rate 17 16 Blood Pressure 91/64 L 104/68 Pulse Oximetry 96 96 98 03/26/22 22:00 03/26/22 22:03 03/26/22 23:14 Temperature 35.9 C L Pulse Rate 79 72 96 Respiratory Rate 16 Blood Pressure 98/66 L Pulse Oximetry 97 97 03/27/22 00:00 03/27/22 01:22 03/27/22 02:00 Temperature 35.8 C L Pulse Rate 70 66 67 Respiratory Rate 16 Blood Pressure 94/64 L Pulse Oximetry 98 98 03/27/22 02:01 03/27/22 02:10 03/27/22 04:00 Temperature 36.2 C L Pulse Rate 79 70 84 Respiratory Rate 17 Blood Pressure 101/68 Pulse Oximetry 99 98 03/27/22 04:01 03/27/22 04:39 03/27/22 0
[2022-03-27 18:05] LABS: Glucose Point of Care 130 mg/dl (65-105)
[2022-03-27] MEDS: MIDAZOLAM 100MG/NS 100ML(*CRX) 100 MG/100 ML BAG IV CONT (19:05)
[2022-03-27 20:30] LABS: Glucose Point of Care 128 mg/dl (65-105)
[2022-03-27 23:59] LABS: Glucose Point of Care 132 mg/dl (65-105)
[2022-03-28] VITALS (26 sets, daily range): BP systolic 118–138; BP diastolic 66–79; PULSE 64–100; RESP 17–29; TEMP 35.8–37.7; O2SAT 99–100
[2022-03-28] MEDS: levETIRAcetam 1000MG/NACL100ML 1,000 MG/100 ML BAG 400 MG IVPB ×3 (03:03→18:16)
[2022-03-28] MEDS: CENTRAL LINE FLUSH 10 ML IV PUSH ×4 (05:52→20:28)
[2022-03-28 05:54] LABS: Basophils Percent Auto 0.1 % (0.2-1.2); Eosinophils Percent Auto 0.2 % (0-4.4); Hemoglobin 8.6 g/dL (12.0-15.0); Immature Granulocyte Absolute 0.04 K/mm3 (0.00-0.031); Immature Granulocyte Percent A 0.4 % (0-0.5); Lymphocytes Percent Auto 11.7 % (18.3-44.2); Mean Corpuscular HGB Conc 31.9 g/dl (32-36); Mean Corpuscular Hemoglobin 21.4 pg (26-34); Mean Corpuscular Volume 67.2 fl (80-100); Mean Platelet Volume 9.6 fl (7.4-10.4); Monocytes Absolute Auto 1.1 K/mm3 (0.1-0.6); Monocytes Percent Auto 10.6 % (2.6-8.5); Neutrophils Absolute Auto 7.9 K/mm3 (1.3-6.7); Platelet Count Result 271 k/mm3 (150-375); Red Blood Count 4.02 M/mm3 (4.2-5.4); Red Cell Distribution Width 16.1 % (11.5-14.5); White Blood Count 10.2 K/mm3 (4.5-10.0)
[2022-03-28 05:55] LABS: Alveolar/Arterial O2 Gradient 58.3 mmHg; Base Excess ABG 0.7 mEq/l (+/-2.0); Carboxyhemoglobin 0.3 % THb (0-2.0); Device VENTILATOR; Fractional Inspired Oxygen 30 %; HCO3 ABG 25.2 mEq/l (22.0-26.0); Methemoglobin ABG 0.4 %THb (0-1.5); Modified Allen's Test Pass; Oxygen Content ABG 15.4 %vol (16.0-22.0); Oxygen Saturation ABG 98.1 % (95.0-100.0); PCO2 ABG 39.6 mmHg (35.0-45.0); PO2 ABG 109.1 mmHg (80.0-100.0); PO2 FiO2 Ratio Arterial Blood 3.64 %; Reduced Hemoglobin 2.3 %THb (0-5.0); Site Drawn LEFT RADIAL; Total Hemoglobin 11.2 g/dL (12.0-18.0); pH ABG 7.421 (7.350-7.450)
[2022-03-28 05:56] LABS: Arterial Blood Gas PEEP 5 cmH2O; Arterial Blood Gas Tidal Volume 400 ml; Arterial Blood Gas Vent Mode CMV; Arterial Blood Gas Ventilator rate 16 /MIN
[2022-03-28 06:05] LABS: INR 1.4; Prothrombin Time 16.8 Seconds (11.1-14.7)
[2022-03-28 06:07] LABS: Alanine Aminotransferase 43 U/L (4-35); Albumin Level 3.3 g/dL (3.5-5.1); Alkaline Phosphatase 74 U/L (38-126); Anion Gap 6 mmol/L (8-16); Aspartate Amino Transferase 80 U/L (14-36); Bilirubin,Total 0.2 mg/dL (0.2-1.3); Blood Urea Nitrogen 34 mg/dL (7-17); Calcium 7.7 mg/dL (8.4-10.2); Carbon Dioxide 23 mmol/L (22-30); Chloride 102 mmol/L (98-107); Creatine Kinase 60 U/L (30-135); Estimated CRCL calculation 53 ml/min; Estimated Glomerular Filt Rate > 60; Glucose 110 mg/dL (65-110); Magnesium 2.4 mg/dL (1.6-2.3); Phosphorus 3.8 mg/dL (2.5-4.5); Potassium 4.2 mmol/L (3.4-5.0); Sodium 131 mmol/L (137-145)
[2022-03-28] MEDS: AZTREONAM 1 GM in DEXTROSE 5% IN WATER 50 ML 100 ML IVPB ×3 (08:55→18:23)
[2022-03-28] MEDS: methylPREDNISolone SOD SUCC 125 MG VIAL IV PUSH (08:55)
[2022-03-28 08:57] LABS: Glucose Point of Care 126 mg/dl (65-105)
[2022-03-28] MEDS: ROSUVASTATIN 10 MG TABLET 20 MG PO (08:57)
[2022-03-28] MEDS: polyethylene glycoL 3350 17 GM POWD.PACK PO (08:57)
[2022-03-28] MEDS: MINERAL OIL/WHITE PETROLATUM OINTMENT 1 APPLIC EACH EYE ×2 (08:57→20:28)
[2022-03-28] MEDS: LOSARTAN POTASSIUM 12.5 MG TABLET PO (08:57)
[2022-03-28] MEDS: PANTOPRAZOLE SODIUM IV 40 MG VIAL IV PUSH (08:57)
[2022-03-28] MEDS: carvediloL 6.25 MG TABLET PO ×2 (08:58→20:28)
--- NOTE | 2022-03-28 11:15 | WPDINTPN ---
Progress Note: A&P Assessment and Plan (1) Acute respiratory failure: Code(s): J96.00 - Acute respiratory failure, unspecified whether with hypoxia or hypercapnia Status: Acute Assessment and Plan: Acute Respiratory failure secondary to cardiac arrest, possible aspiration pneumonia Continue full mechanical ventilation support to prevent hypoxemia/hypercarbia and end organ damage. ABG, chest CT and PCXR reviewed, PEEP of 5 and Fio2 30% - Weaned off sedation (03/25) for EEG but pt had tremors, -patient on Versed infusion for sedation - continue aztreonam (03/23) and vancomycin (03/26) for pneumonia - 03/23 Urine and Blood cultures are negative Sputum cultures pending, procalcitonin level 0.6 (2) Aspiration pneumonia: Code(s): J69.0 - Pneumonitis due to inhalation of food and vomit Status: Acute Assessment and Plan: see above (3) Cardiac arrest: Code(s): I46.9 - Cardiac arrest, cause unspecified Status: Acute Assessment and Plan: VFib cardiac arrest likely secondary to STEMI 03/22/22: status post partially successful PCI - continue to hold antiplatelet and due to intra-abdominal hemorrhage as hemoglobin continues to drift down, discussed with Cardiology - continue statin and low-dose ARB, increased Coreg does 6.25 mg q.12 hours If arrhythmia recurs will start amiodarone infusion, 03/23 Echocardiogram showed: Borderline LV enlargement, moderate LVH. Moderate LV systolic dysfunction, ejection fraction approximately 40%. Diastolic dysfunction is present. Moderate left atrial enlargement. Mild right atrial enlargement. Normal mitral valve structure, mild mitral regurgitation. Mild aortic valve sclerosis, mild aortic stenosis, valve area 1.7 cm2. Mild tricuspid regurgitation, moderate pulmonary hypertension, RVSP 48 mmHg. (4) ST elevation [place] (STEMI): Code(s): I21.3 - ST elevation (STEMI) myocardial infarction of unspecified site Status: Acute Assessment and Plan: see above (5) Ventricular fibrillation: Code(s): I49.01 - Ventricular fibrillation Status: Acute Assessment and Plan: see above (6) Intra abdominal hemorrhage: Code(s): R58 - Hemorrhage, not elsewhere classified Status: Acute Assessment and Plan: patient's chest CT shows small amount of hemoperitoneum with post multiple possible etiologies patient received CPR leading to sternal and rib fractures, patient also received anticoagulation for her PCI, she had is femoral arterial puncture for PCI and also had some bleeding on removal of sheath requiring extended pressure at this time will monitor hemoglobin serially which has been stable but gradually drifting down. Will continue to hold aspirin and Plavix groin site at this time does not show any swelling hematoma or bruising hold anticoagulation and antiplatelets for another 24 hours transfuse if needed Coags were in acceptable range 03/26/2022 CT scan of the abdomen and pelvis Small pleural effusions. 2. Airspace opacities in the lower lobes with volume loss, likely predominantly atelectasis. Pneumonia cannot be excluded. 3. Acute fractures of right fifth and sixth ribs again seen. (7) Rib fracture: Code(s): S22.39XA - Fracture of one rib, unspecified side, initial encounter for closed fracture Status: Acute Assessment and Plan: patient sustained sternal and right 5th and 6th rib fractures which are likely from CPR no flail chest conservative management (8) Acute kidney injury: Code(s): N17.9 - Acute kidney failure, unspecified Status: Acute Assessment and Plan: RESOLVED baseline creatinine is unknown Initial acute kidney injury likely prerenal from cardiac arrest in patient also has mild rhabdomyolysis improved with IV fluids monitor electrolytes urine output and creatinine normal renal ultrasound -creatinine 0.9 this morning -urine output has improved
[2022-03-28] MEDS: methylPREDNISolone SOD SUCC 40 MG VIAL IV PUSH ×3 (13:04→23:56)
[2022-03-28] MEDS: MIDAZOLAM 100MG/NS 100ML(*CRX) 100 MG/100 ML BAG IV CONT (15:31)
--- NOTE | 2022-03-28 16:51 | PM.PNCARD ---
Progress Note: A&P Assessment and Plan (1) ST elevation [place] (STEMI): Code(s): I21.3 - ST elevation (STEMI) myocardial infarction of unspecified site Status: Acute Assessment and Plan: Taken to the cardiac laboratory worker emergently last evening following out of hospital cardiac arrest, VF, and EKG with evidence of acute anterior [place]. She was found to have a 100% acute occlusion of the distal LAD. Efforts to revascularize this were not successful and the case ended without intervention to the LAD lesion and she was transferred to the ICU in stable but critical condition. Echo showed mildly reduced systolic function with EF 40%. Currently, her aspirin and plavix are on hold due to small acute abdominal hemorrhage. (2) Cardiac arrest: Code(s): I46.9 - Cardiac arrest, cause unspecified Status: Acute Assessment and Plan: Witnessed cardiac arrest at home. Did receive CPR from a bystander prior to EMS arrival. Found to be in VF upon arrival to the emergency department. (3) Intra abdominal hemorrhage: Code(s): R58 - Hemorrhage, not elsewhere classified Status: Acute Assessment and Plan: Chest CT shows small amount of hemoperitoneum. Probably secondary to CPR, anticoagulation for PCI. H&H stable thus far. Hold ASA, plavix. Hemoglobin is still drifting down. CT scan pending. When able, would start clopidogrel 75 mg p.o. or ASA 81 mg daily. restart ASA today (4) Anoxic brain injury: Code(s): G93.1 - Anoxic brain damage, not elsewhere classified Status: Acute Assessment and Plan: Out of hospital cardiac arrest with unknown down time, medical record indicates that she received CPR from a bystander at home prior to EMS arrival. She did achieve ROSC after 2 rounds of epinephrine/ACLS protocol. Unfortunately she is exhibiting some signs of anoxic brain injury including myoclonic jerking and no purposeful movements with attempts to withdraw sedation. EEG results are pending. Management per critical care. (5) Paroxysmal atrial fibrillation: Code(s): I48.0 - Paroxysmal atrial fibrillation Status: Acute Assessment and Plan: Back in atrial fibrillation at present. Hold off on anticoagulation for now given intra-abdominal hemorrhage and could restart tomorrow if HGb is stable. , Subjective Date/time seen: 03/28/22 16:51 Interval history: no acute events Review of Systems Review of Systems: ROS unobtainable: Yes unobtainable due to endotracheal tube Exam Const: General: ill appearing acutely Orientation/consciousness: No patient oriented x3 Other: intubated elderly lady HENMT: Head: normal to inspection Mouth: Yes moist mucous membranes Other: Tongue swollen and ecchymotic Eyes: General: appearance normal, both eyes and all related structures Sclera: sclerae normal Neck: Neck: supple Other: Triple lumen central line RIJ Chest: Chest palpation & inspection: normal inspection of the chest Resp: Effort & Inspection: other (mechanically ventilated ) Auscultation: clear to auscultation bilaterally (only able to auscultate anteriorally ) Other: Coarse breath sounds bilaterally Cardio: Rate: regular rate Rhythm: abnormal rhythm irregularly irregular Heart sounds: no murmurs Other: GI: Inspection: abdominal wall ecchymosis Auscultation: normal bowel sounds Urinary Catheter: Urinary Catheter: patent and draining Skin: General skin exam: normal color Other: Groin arterial insertion site free from bleeding, hematoma Neuro: General: No patient oriented x3 Speech: No normal speech Motor exam (neuro): Motor abnormalites present myoclonus Other: Intubated and sedated Extrem: General: normal to inspection Psych: Appearance: grossly abnormal Mental Status: mental status grossly abnormal Objective Data Vital Signs Vital Signs: Vital Signs - 24 hr 03/27/22 17:02 03/27/22 18:00 03/27/22 19:05 Temperature 37.4 C Pul
[2022-03-28 18:55] LABS: Glucose Point of Care 161 mg/dl (65-105)
[2022-03-28 20:26] LABS: Glucose Point of Care 179 mg/dl (65-105)
[2022-03-29] VITALS (22 sets, daily range): BP systolic 124–155; BP diastolic 74–107; PULSE 60–99; RESP 15–20; TEMP 35.7–36.8; O2SAT 61–100
[2022-03-29] LABS: Glucose Point of Care 170 mg/dl (65-105)
[2022-03-29] MEDS: AZTREONAM 1 GM in DEXTROSE 5% IN WATER 50 ML 100 ML IVPB ×3 (00:01→19:51)
[2022-03-29] MEDS: levETIRAcetam 1000MG/NACL100ML 1,000 MG/100 ML BAG 400 MG IVPB ×3 (01:23→19:51)
[2022-03-29 05:53] LABS: Alveolar/Arterial O2 Gradient 44.2 mmHg; Base Excess ABG -0.2 mEq/l (+/-2.0); Carboxyhemoglobin 0.3 % THb (0-2.0); Device VENTILATOR; Fractional Inspired Oxygen 25 %; HCO3 ABG 23.5 mEq/l (22.0-26.0); Methemoglobin ABG 0.2 %THb (0-1.5); Modified Allen's Test Unable to perform; Oxygen Content ABG 15.7 %vol (16.0-22.0); Oxygen Saturation ABG 97.4 % (95.0-100.0); Oxyhemoglobin 96.3 % THb (90.0-100.0); PCO2 ABG 35.3 mmHg (35.0-45.0); PO2 ABG 92.1 mmHg (80.0-100.0); PO2 FiO2 Ratio Arterial Blood 3.68 %; Reduced Hemoglobin 3.2 %THb (0-5.0); Site Drawn RIGHT RADIAL; Total Hemoglobin 11.5 g/dL (12.0-18.0); pH ABG 7.442 (7.350-7.450)
[2022-03-29 05:54] LABS: Arterial Blood Gas PEEP 5 cmH2O; Arterial Blood Gas Tidal Volume 400 ml; Arterial Blood Gas Vent Mode CMV; Arterial Blood Gas Ventilator rate 16 /MIN
[2022-03-29] MEDS: methylPREDNISolone SOD SUCC 40 MG VIAL IV PUSH (06:30)
[2022-03-29 06:34] LABS: Basophils Percent Auto 0.1 % (0.2-1.2); Immature Granulocyte Absolute 0.08 K/mm3 (0.00-0.031); Immature Granulocyte Percent A 1.1 % (0-0.5); Lymphocytes Absolute Auto 0.87 K/mm3 (0.9-3.2); Lymphocytes Percent Auto 11.8 % (18.3-44.2); Mean Corpuscular HGB Conc 32.1 g/dl (32-36); Mean Corpuscular Hemoglobin 21.3 pg (26-34); Mean Corpuscular Volume 66.4 fl (80-100); Mean Platelet Volume 9.3 fl (7.4-10.4); Monocytes Absolute Auto 0.7 K/mm3 (0.1-0.6); Neutrophils Absolute Auto 5.7 K/mm3 (1.3-6.7); Platelet Count Result 310 k/mm3 (150-375); Red Blood Count 4.22 M/mm3 (4.2-5.4); Red Cell Distribution Width 15.7 % (11.5-14.5); White Blood Count 7.4 K/mm3 (4.5-10.0)
[2022-03-29 06:45] LABS: INR 1.4; Prothrombin Time 16.2 Seconds (11.1-14.7)
[2022-03-29 06:46] LABS: Partial Thromboplastin Time 39.2 SECONDS (22.3-36.8)
[2022-03-29] MEDS: CENTRAL LINE FLUSH 10 ML IV PUSH ×4 (06:52→20:12)
[2022-03-29 06:55] LABS: Alanine Aminotransferase 39 U/L (6-35); Albumin Level 3.1 g/dL (3.5-5.1); Alkaline Phosphatase 73 U/L (38-126); Anion Gap 4 mmol/L (8-16); Aspartate Amino Transferase 68 U/L (14-36); Bilirubin,Total < 0.1 mg/dL (0.2-1.3); Blood Urea Nitrogen 38 mg/dL (7-17); Carbon Dioxide 26 mmol/L (22-30); Chloride 100 mmol/L (98-107); Creatine Kinase 33 U/L (30-135); Estimated CRCL calculation 54 ml/min; Estimated Glomerular Filt Rate > 60; Glucose 150 mg/dL (65-110); Magnesium 2.4 mg/dL (1.6-2.3); Phosphorus 3.4 mg/dL (2.5-4.5); Potassium 4.6 mmol/L (3.4-5.0); Sodium 130 mmol/L (137-145)
[2022-03-29 07:07] LABS: Vancomycin Trough 10.8 ug/mL (10.0-20.0)
--- NOTE | 2022-03-29 09:07 | WPDINTPN ---
Progress Note: A&P Assessment and Plan (1) Acute respiratory failure: Code(s): J96.00 - Acute respiratory failure, unspecified whether with hypoxia or hypercapnia Status: Acute Assessment and Plan: Acute Respiratory failure secondary to cardiac arrest, possible aspiration pneumonia Continue full mechanical ventilation support to prevent hypoxemia/hypercarbia and end organ damage. ABG, chest CT and PCXR reviewed, PEEP of 5 and FiO2 of 25% - Weaned off sedation (03/25) for EEG but pt had tremors and seizures, patient was started on Versed infusion with improvement in tremors and seizures, patient also started on Keppra and valproic acid - continue aztreonam (03/23) and vancomycin (03/26) for pneumonia (stop date for both antibiotics 03/30/2022) - 03/23 Urine and Blood cultures are negative Sputum cultures pending, procalcitonin level 0.6 (2) Aspiration pneumonia: Code(s): J69.0 - Pneumonitis due to inhalation of food and vomit Status: Acute Assessment and Plan: see above (3) Cardiac arrest: Code(s): I46.9 - Cardiac arrest, cause unspecified Status: Acute Assessment and Plan: VFib cardiac arrest likely secondary to STEMI 03/22/22: status post partially successful PCI - continue to hold antiplatelet and due to intra-abdominal hemorrhage as hemoglobin continues to drift down, discussed with Cardiology - continue statin and low-dose ARB, increased Coreg does 6.25 mg q.12 hours If arrhythmia recurs will start amiodarone infusion, 03/23 Echocardiogram showed: Borderline LV enlargement, moderate LVH. Moderate LV systolic dysfunction, ejection fraction approximately 40%. Diastolic dysfunction is present. Moderate left atrial enlargement. Mild right atrial enlargement. Normal mitral valve structure, mild mitral regurgitation. Mild aortic valve sclerosis, mild aortic stenosis, valve area 1.7 cm2. Mild tricuspid regurgitation, moderate pulmonary hypertension, RVSP 48 mmHg. (4) ST elevation [place] (STEMI): Code(s): I21.3 - ST elevation (STEMI) myocardial infarction of unspecified site Status: Acute Assessment and Plan: Status post partially successful PCI to terminal portion of the LAD with anabaptism of some flow into the apical portion of the vessel with crossing the lesion with the guidewire and approaching with the balloon (5) Ventricular fibrillation: Code(s): I49.01 - Ventricular fibrillation Status: Acute Assessment and Plan: Likely secondary to ST-elevation [place], patient was initially on amiodarone which has been discontinued (6) Intra abdominal hemorrhage: Code(s): R58 - Hemorrhage, not elsewhere classified Status: Acute Assessment and Plan: patient's chest CT shows small amount of hemoperitoneum with post multiple possible etiologies patient received CPR leading to sternal and rib fractures, patient also received anticoagulation for her PCI, she had is femoral arterial puncture for PCI and also had some bleeding on removal of sheath requiring extended pressure at this time will monitor hemoglobin serially which has been stable but gradually drifting down. Will continue to hold Plavix (patient has allergy to aspirin) cardiology is aware transfuse if needed Coags are in acceptable range 03/26/2022 CT scan of the abdomen and pelvis Small pleural effusions. 2. Airspace opacities in the lower lobes with volume loss, likely predominantly atelectasis. Pneumonia cannot be excluded. 3. Acute fractures of right fifth and sixth ribs again seen. (7) Rib fracture: Code(s): S22.39XA - Fracture of one rib, unspecified side, initial encounter for closed fracture Status: Acute Assessment and Plan: patient sustained sternal and right 5th and 6th rib fractures which are likely from CPR no flail chest conservative management (8) Acute kidney injury: Code(s): N17.9 - Acute kidney failure, unspecified Stat
[2022-03-29] MEDS: polyethylene glycoL 3350 17 GM POWD.PACK PO (09:11)
--- NOTE | 2022-03-29 09:24 | PM.IMPN ---
Progress Note: A&P Assessment and Plan (1) Anoxic brain injury: Code(s): G93.1 - Anoxic brain damage, not elsewhere classified Status: Acute Assessment and Plan: Patient was down for approximately 18 minutes prior to ROSC. Brain CT showing small region of gyral enhancement at the left frontoparietal region most likely CVA. Also of note are bilateral occipital lobe infarcts subacute versus chronic. Patient without history of stroke. She completed the cooling protocol. Repeat CT brain 03/24 some areas with loss of varner-white differentiation suggestive of toxic brain injury and subacute bilateral occipital lobe infarcts. Plavix on hold due to patient abdominal hemorrhage. EEG noted showing generalized periodic discharges c/w severe, bihemispheric cerebral dysfunction. She remains sedated at this time. Continue Keppra and VPA. Neurology consulted and appreciate their input. Wean sedation when able so as to be able to assess mental status (2) Ventricular fibrillation: Code(s): I49.01 - Ventricular fibrillation Status: Acute Assessment and Plan: Patient with VFib arrest in the field. CPR started immediately by family and then by EMS. Shocked once which resulted in PEA. [place] related to STEMI/ischemia. Continue Coreg. Continue to monitor on telemetry. Appreciate Cardiology input. (3) Cardiac arrest: Code(s): I46.9 - Cardiac arrest, cause unspecified Status: Acute Assessment and Plan: Patient with acute cardiac arrest in the field. STEMI called in the field and patient underwent left heart catheterization on arrival. She had balloon angioplasty but no stent placement to the distal LAD. Continue Crestor, Cozaar and Coreg. Plavix and aspirin remain on hold at this time due to intra-abdominal hemorrhage. Appreciate Cardiology input. Start Plavix? (4) ST elevation [place] (STEMI): Code(s): I21.3 - ST elevation (STEMI) myocardial infarction of unspecified site Status: Acute Assessment and Plan: Inferior STEMI noted by EKG in the field once ROSC was achieved. Left heart catheterization on admission with single-vessel CAD with acute PA with total acute occlusion of the terminal apical portion of the LAD. Very tortuous LAD, anomalous non-diseased RCA and non-diseased LCx. Patient is status post balloon angioplasty with some improvement in flow to the distal LAD. Echo showing EF 40-45% and diastolic dysfunction, moderate LAE, mild valvular disease and moderate pulmonary HTN. Continue medical management. (5) Acute respiratory failure: Code(s): J96.00 - Acute respiratory failure, unspecified whether with hypoxia or hypercapnia Status: Acute Assessment and Plan: As above. Acute respiratory failure related to her cardiac arrest. Patient may have aspirated as well contributing to her acute respiratory failure. She remains on abx for aspiration pneumonia. Continue mechanical ventilation. Appreciate sales and service consultant input. (6) Aspiration pneumonia: Code(s): J69.0 - Pneumonitis due to inhalation of food and vomit Status: Acute Assessment and Plan: CT the chest showing acute fracture of the sternum and right 5th and 6th ribs. Chest CT also shows mild atelectasis but no significant infiltrates. White count normal now. CXR today reviewed showing CMG, pulm edema and left pl effusion. Fevers resolved. Continue IV aztreonam (03/23) and vancomycin (03/26) with plans to stop both on 03/30. Continue to follow. (7) Atrial fibrillation: Code(s): I48.91 - Unspecified atrial fibrillation Status: Acute Assessment and Plan: EKG showing AFib. Unclear if this was evident prior to the cardiac arrest or due to it. She is in/out of AFib. No anticoagulation at this time. Echo noted but no obvious thrombus. Continue Coreg. (8) Intra abdominal hemorrhage: Code(s): R58 - Hemorrhage, not elsewhere classified Status: Acute Assessme
[2022-03-29 09:31] LABS: Glucose Point of Care 137 mg/dl (65-105)
[2022-03-29] MEDS: LOSARTAN POTASSIUM 12.5 MG TABLET PO (09:44)
[2022-03-29] MEDS: carvediloL 6.25 MG TABLET PO ×2 (09:45→20:12)
[2022-03-29] MEDS: ROSUVASTATIN 10 MG TABLET 20 MG PO (09:45)
[2022-03-29] MEDS: PANTOPRAZOLE SODIUM IV 40 MG VIAL IV PUSH (09:45)
--- NOTE | 2022-03-29 10:45 | PCFNICU ---
ICU Rounding Note: Pt current nutrition is Vital AF 1.2 at 40 ml/hr over 22 hours. Nutrition recommendation: 55 ml/hr over 22 hours. Last recorded weight is 103.2 kg, up from 96.9 kg on admit. Bowel Motility: No BM reported. Labs Reviewed:BUN 38, Glu 150, Alb 3.1,Hct 28.0, Hgb 9.0 Meds Noted:Keppra, Versed, Ativan, Flagyl, Coreg, Cozaar, Miralax, Crestor, Dulcolax Suppository Skin: WNL Additional Notes: Patient remains on mechanical vent and tube feedings of Vital AF 1.2 at 40 ml/hr. Propofol has been discontinued. MD orders to advance tube feedings to goal rate of 55 ml/hr over 22hours,providing 1452 kcals/90 gm protein/981 ml water. Agree with diet orders. Following daily in ICU rounds. Will monitor daily in ICU rounds as reassess every Tuesday/Tuesday.
--- NOTE | 2022-03-29 11:13 | PM.PNCARD ---
Progress Note: A&P Assessment and Plan (1) ST elevation [place] (STEMI): Code(s): I21.3 - ST elevation (STEMI) myocardial infarction of unspecified site Status: Acute Assessment and Plan: Taken to the cardiac earthmoving labourer emergently last evening following out of hospital cardiac arrest, VF, and EKG with evidence of acute anterior WI. She was found to have a 100% acute occlusion of the distal LAD. Efforts to revascularize this were not successful and the case ended without intervention to the LAD lesion and she was transferred to the ICU in stable but critical condition. Echo showed mildly reduced systolic function with EF 40%. Currently, her aspirin and plavix are on hold due to small acute abdominal hemorrhage. (2) Cardiac arrest: Code(s): I46.9 - Cardiac arrest, cause unspecified Status: Acute Assessment and Plan: Witnessed cardiac arrest at home. Did receive CPR from a bystander prior to EMS arrival. Found to be in VF upon arrival to the emergency department. (3) Intra abdominal hemorrhage: Code(s): R58 - Hemorrhage, not elsewhere classified Status: Acute Assessment and Plan: Chest CT shows small amount of hemoperitoneum. Probably secondary to CPR, anticoagulation for PCI. H&H stable thus far. Hold ASA, plavix. Hemoglobin is still drifting down. CT scan pending. When able, would start clopidogrel 75 mg p.o. or ASA 81 mg daily. restart ASA today (4) Anoxic brain injury: Code(s): G93.1 - Anoxic brain damage, not elsewhere classified Status: Acute Assessment and Plan: Out of hospital cardiac arrest with unknown down time, medical record indicates that she received CPR from a bystander at home prior to EMS arrival. She did achieve ROSC after 2 rounds of epinephrine/ACLS protocol. Unfortunately she is exhibiting some signs of anoxic brain injury including myoclonic jerking and no purposeful movements with attempts to withdraw sedation. EEG results are pending. Management per critical care. (5) Paroxysmal atrial fibrillation: Code(s): I48.0 - Paroxysmal atrial fibrillation Status: Acute Assessment and Plan: Back in atrial fibrillation at present. Hold off on anticoagulation for now given intra-abdominal hemorrhage and could restart tomorrow if HGb is stable. , Additional Plan Subjective Date/time seen: Date of service: 03/29/22 11:13 Interval history: 76-year-old lady with: Presentation originally with acute anterior wall WI with distal occlusion of the LAD. Partially successful PCI is described in the cardiac earthmoving labourer note. Despite this she has not had a reasonable neurological recovery remains in the ICU unresponsive on ventilator support. Obviously prognosis is extremely poor in this setting. We do not have any additional cardiac recommendations at this time. Supportive care is being pursued. Hospitalist will be transferring this patient to their service as there is no other cardiac recommendation at this time. Jackson Palma MD FACC Exam Const: General: ill appearing Orientation/consciousness: No patient oriented x3 Other: intubated elderly lady HENMT: Head: normal to inspection Mouth: Yes moist mucous membranes Other: Tongue swollen and ecchymotic Eyes: General: appearance normal, both eyes and all related structures Sclera: sclerae normal Neck: Neck: supple Other: Triple lumen central line RIJ Chest: Chest palpation & inspection: normal inspection of the chest Resp: Effort & Inspection: other (mechanically ventilated ) Auscultation: clear to auscultation bilaterally (only able to auscultate anteriorally ) Other: Coarse breath sounds bilaterally Cardio: Rate: regular rate Rhythm: abnormal rhythm Heart sounds: no murmurs Other: GI: Inspection: abdominal wall ecchymosis Auscultation: normal bowel sounds Urinary Catheter: Urinary Catheter: patent and draining Skin: General skin exam:
[2022-03-29 12:05] LABS: Glucose Point of Care 161 mg/dl (65-105)
[2022-03-29] MEDS: BISACODYL 10 MG SUPPOSITORY RECTAL (13:00)
[2022-03-29 16:22] LABS: Glucose Point of Care 178 mg/dl (65-105)
--- NOTE | 2022-03-29 16:58 | WPDNEURCNPN ---
Consult date: 03/29/22 HPI: Lata Warren is a 76 year old female admitted to the hospital through the emergency room is status post cardiac arrest patient reportedly called her son around 8:11 p.m. complaining of chest pain she refused to go to the hospital and waited out but continued to have chest pain she went to the bathroom and told the son she is going to pass out and collapsed on the ground had no pulse 911 were called to the scene at 9:00 p.m. ambulance were dispatched bystander CPR was perform as per the instruction of dispatch compression continued she was intubated with 7.5 ET tube she was found to have ventricular fibrillation for which she received defibrillation then went into PE a received 2 rounds of epinephrine then found to have ros see kept no graph he improved she had been on exertion dyspnea for the last 2 months but she was in the process of transferring the doctor's her outpatient medication included diltiazem 180 mg daily losartan 100 mg daily metoprolol 100 mg daily she was never a smoker never drinker never substance user and initial exam was abnormal since then she has had emergency coronary angiogram which documented 100% acute occlusion of the left anterior descending echocardiogram has been done which documented moderate left atrial enlargement mild aortic valve sclerosis and stenosis and regurgitation of the tricuspid valve patient admitted to critical care being treated for anoxic brain damage subsequent to the cardiac arrest and neuro consult has been obtained to evaluate the necessary for the EEG and further care or not Review of Systems Review of Systems: All systems reviewed & are unremarkable except as noted in HPI and below PMFSH Past Medical History Medical History Hypertension Surgical History Surgical History Surgical history unknown Family History Family History Other Unknown family medical history Social History Social History Smoking status: Never smoker Alcohol intake: never Substance use: never Spiritual care concerns: No Meds Home Medications and Allergies Home Medications Medication Instructions Recorded Confirmed Type diltiazem HCl 180 mg PO DAILY 03/23/22 03/23/22 History losartan 100 mg PO DAILY 03/23/22 03/23/22 History metoprolol succinate 100 mg PO DAILY 03/23/22 03/23/22 History Allergies Allergy/AdvReac Type Severity Reaction Status Date / Time aspirin Allergy Hives Verified 03/23/22 00:29 ibuprofen Allergy Hives Verified 03/23/22 00:29 Penicillins Allergy Unknown Verified 03/23/22 00:29 Vital Signs Vital Signs - 24 hr 03/28/22 18:00 03/28/22 20:00 03/28/22 20:28 Temperature 37.6 C H 37.7 C H Pulse Rate 80 82 82 Respiratory Rate 23 H 20 Blood Pressure 138/78 135/76 Pulse Oximetry 100 100 03/28/22 21:56 03/28/22 22:00 03/28/22 23:08 Temperature 37.5 C Pulse Rate 79 79 78 Respiratory Rate 22 H Blood Pressure 137/79 Pulse Oximetry 100 100 03/29/22 00:00 03/29/22 02:00 03/29/22 02:02 Temperature 36.8 C 36.6 C Pulse Rate 76 77 74 Respiratory Rate 20 20 Blood Pressure 148/80 H 146/84 H Pulse Oximetry 100 100 100 03/29/22 04:00 03/29/22 05:00 03/29/22 06:00 Temperature 36.4 C L 36.2 C L Pulse Rate 73 72 62 Respiratory Rate 20 20 Blood Pressure 148/84 H 141/81 H Pulse Oximetry 100 100 100 03/29/22 08:00 03/29/22 08:15 03/29/22 10:00 Temperature 36.2 C L 35.8 C L Pulse Rate 63 99 65 Respiratory Rate 16 16 Blood Pressure 145/78 H 140/84 Pulse Oximetry 99 62 L 99 03/29/22 11:30 03/29/22 12:00 03/29/22 13:08 Temperature 35.8 C L Pulse Rate 96 60 96 Respiratory Rate 16 Blood Pressure 155/96 H Pulse Oximetry 61 L 98 61 L 03/29/22 14:00 03/29/22 16:00 Temperature 35.7 C L 35.7 C L Pulse Rat
[2022-03-29] MEDS: MINERAL OIL/WHITE PETROLATUM OINTMENT 1 APPLIC EACH EYE (19:52)
[2022-03-29 20:18] LABS: Glucose Point of Care 172 mg/dl (65-105)
[2022-03-29 23:56] LABS: Glucose Point of Care 136 mg/dl (65-105)
[2022-03-30] VITALS (25 sets, daily range): BP systolic 102–141; BP diastolic 69–103; PULSE 61–91; RESP 16–127; TEMP 35.7–36.9; O2SAT 94–99
[2022-03-30] MEDS: AZTREONAM 1 GM in DEXTROSE 5% IN WATER 50 ML 100 ML IVPB ×3 (01:59→17:06)
[2022-03-30] MEDS: levETIRAcetam 1000MG/NACL100ML 1,000 MG/100 ML BAG 400 MG IVPB ×3 (01:59→17:07)
[2022-03-30 04:20] LABS: Basophils Percent Auto 0.1 % (0.2-1.2); Hematocrit 29.8 % (37.0-47.0); Hemoglobin 9.4 g/dL (12.0-15.0); Immature Granulocyte Absolute 0.09 K/mm3 (0.00-0.031); Immature Granulocyte Percent A 0.9 % (0-0.5); Lymphocytes Absolute Auto 1.53 K/mm3 (0.9-3.2); Lymphocytes Percent Auto 15.3 % (18.3-44.2); Mean Corpuscular HGB Conc 31.5 g/dl (32-36); Mean Corpuscular Hemoglobin 20.9 pg (26-34); Mean Corpuscular Volume 66.4 fl (80-100); Mean Platelet Volume 8.9 fl (7.4-10.4); Monocytes Absolute Auto 1.4 K/mm3 (0.1-0.6); Neutrophils Percent Auto 69.7 % (45.5-73.1); Platelet Count Result 342 k/mm3 (150-375); Red Blood Count 4.49 M/mm3 (4.2-5.4); Red Cell Distribution Width 15.8 % (11.5-14.5)
[2022-03-30 04:34] LABS: Alanine Aminotransferase 43 U/L (6-35); Alkaline Phosphatase 74 U/L (38-126); Anion Gap 6 mmol/L (8-16); Aspartate Amino Transferase 75 U/L (14-36); Bilirubin,Total 0.1 mg/dL (0.2-1.3); Blood Urea Nitrogen 38 mg/dL (7-17); Calcium 7.8 mg/dL (8.4-10.2); Carbon Dioxide 26 mmol/L (22-30); Chloride 101 mmol/L (98-107); Estimated CRCL calculation 60 ml/min; Estimated Glomerular Filt Rate > 60; Glucose 115 mg/dL (65-110); Magnesium 2.3 mg/dL (1.6-2.3); Potassium 4.2 mmol/L (3.4-5.0); Sodium 133 mmol/L (137-145)
[2022-03-30 04:42] LABS: Alveolar/Arterial O2 Gradient 52.8 mmHg; Base Excess ABG -0.1 mEq/l (+/-2.0); Carboxyhemoglobin 0.3 % THb (0-2.0); Fractional Inspired Oxygen 25 %; HCO3 ABG 22.4 mEq/l (22.0-26.0); Methemoglobin ABG 0.2 %THb (0-1.5); Oxygen Content ABG 14.9 %vol (16.0-22.0); Oxygen Saturation ABG 97.6 % (95.0-100.0); Oxyhemoglobin 96.3 % THb (90.0-100.0); PCO2 ABG 29.7 mmHg (35.0-45.0); PO2 ABG 90.2 mmHg (80.0-100.0); PO2 FiO2 Ratio Arterial Blood 3.61 %; Reduced Hemoglobin 3.2 %THb (0-5.0); Total Hemoglobin 10.9 g/dL (12.0-18.0); pH ABG 7.496 (7.350-7.450)
[2022-03-30 04:43] LABS: Device VENTILATOR; Modified Allen's Test Pass; Site Drawn RIGHT RADIAL
[2022-03-30 04:44] LABS: Arterial Blood Gas PEEP 5 cmH2O; Arterial Blood Gas Tidal Volume 400 ml; Arterial Blood Gas Vent Mode CMV; Arterial Blood Gas Ventilator rate 16 /MIN
[2022-03-30] MEDS: CENTRAL LINE FLUSH 10 ML IV PUSH ×3 (05:40→20:24)
[2022-03-30] MEDS: MIDAZOLAM 100MG/NS 100ML(*CRX) 100 MG/100 ML BAG IV CONT (07:00)
[2022-03-30 07:28] LABS: Glucose Point of Care 111 mg/dl (65-105)
[2022-03-30] MEDS: LOSARTAN POTASSIUM 12.5 MG TABLET PO (09:04)
[2022-03-30] MEDS: PANTOPRAZOLE SODIUM IV 40 MG VIAL IV PUSH (09:04)
[2022-03-30] MEDS: MINERAL OIL/WHITE PETROLATUM OINTMENT 1 APPLIC EACH EYE ×2 (09:04→20:24)
[2022-03-30] MEDS: ROSUVASTATIN 10 MG TABLET 20 MG PO (09:04)
[2022-03-30] MEDS: polyethylene glycoL 3350 17 GM POWD.PACK PO (09:04)
--- NOTE | 2022-03-30 09:29 | PC.NURSE ---
NOC RN reported in shift report that Midazolam was infusing at rate of 3mg/hr. Upon assessment of patient and pumps at 0700, Midazolam pump noted to be infusing at rate of 3mg/hr. Charting at this time was at a rate of 5mg/hr. At 0810 Dr. Cornejo entered room and requested Midazolam be placed on pause for a sedation vacation. Midazolam pump placed on pause at this time. Charting updated to correct infusion rate and then paused per Dr. Cornejo's order. Will continue to monitor.
--- NOTE | 2022-03-30 09:52 | PM.IMPN ---
Progress Note: A&P Assessment and Plan (1) Anoxic brain injury: Code(s): G93.1 - Anoxic brain damage, not elsewhere classified Status: Acute Assessment and Plan: Patient was down for approximately 18 minutes prior to ROSC. Brain CT showing small region of gyral enhancement at the left frontoparietal region most likely CVA. Also of note are bilateral occipital lobe infarcts subacute versus chronic. Patient without history of stroke. She completed the cooling protocol. Repeat CT brain 03/24 some areas with loss of varner-white differentiation suggestive of toxic brain injury and subacute bilateral occipital lobe infarcts. Plavix on hold due to patient abdominal hemorrhage. EEG noted showing generalized periodic discharges c/w severe, bihemispheric cerebral dysfunction. She was sedated due to myoclonic jerking and possible seizure. Currently on Keppra and VPA. Sedation stopped today to assess neurologic function. Neurology consulted and appreciate their input. Family was called and want to continue Full Code status.. (2) Ventricular fibrillation: Code(s): I49.01 - Ventricular fibrillation Status: Acute Assessment and Plan: Patient with VFib arrest in the field. CPR started immediately by family and then by EMS. Shocked once which resulted in PEA. [place] related to STEMI/ischemia. Now intermittently bradycardic. Coreg dose was decreased now held. Continue to monitor on telemetry. Appreciate Cardiology input. (3) Cardiac arrest: Code(s): I46.9 - Cardiac arrest, cause unspecified Status: Acute Assessment and Plan: Patient with acute cardiac arrest in the field. STEMI called in the field and patient underwent left heart catheterization on arrival. She had balloon angioplasty but no stent placement to the distal LAD. Continue Crestor and Cozaar; Coreg on hold. Plavix remains on hold at this time due to intra-abdominal hemorrhage. Appreciate Cardiology input. (4) ST elevation [place] (STEMI): Code(s): I21.3 - ST elevation (STEMI) myocardial infarction of unspecified site Status: Acute Assessment and Plan: Inferior STEMI noted by EKG in the field once ROSC was achieved. Left heart catheterization on admission with single-vessel CAD with acute AK with total acute occlusion of the terminal apical portion of the LAD. Very tortuous LAD, anomalous non-diseased RCA and non-diseased LCx. Patient is status post balloon angioplasty with some improvement in flow to the distal LAD. Echo showing EF 40-45% and diastolic dysfunction, moderate LAE, mild valvular disease and moderate pulmonary HTN. Continue medical management. (5) Acute respiratory failure: Code(s): J96.00 - Acute respiratory failure, unspecified whether with hypoxia or hypercapnia Status: Acute Assessment and Plan: As above. Acute respiratory failure related to her cardiac arrest. Patient may have aspirated as well contributing to her acute respiratory failure. She remains on abx for aspiration pneumonia. On minimal vent settings. Continue mechanical ventilation. Appreciate recapper input. Unless her mental status improves, she most likely will need trach and PEG if family wants to continue full care. (6) Aspiration pneumonia: Code(s): J69.0 - Pneumonitis due to inhalation of food and vomit Status: Acute Assessment and Plan: CT the chest showing acute fracture of the sternum and right 5th and 6th ribs. Chest CT also shows mild atelectasis but no significant infiltrates. White count normal now. CXR today reviewed showing CMG, pulm edema and left pl effusion. Fevers resolved. Continue IV aztreonam (5/3) and vancomycin (5/6) with plans to stop both today. Continue to follow. (7) Atrial fibrillation: Code(s): I48.91 - Unspecified atrial fibrillation Status: Acute Assessment and Plan: EKG showing AFib. Unclear if this was evident prior to the cardiac arrest
--- NOTE | 2022-03-30 10:35 | PCNFU ---
Nutrition Follow-Up Complete: Inadequate Oral intake as related to mechanical ventilation as related to NPO. Goal:Meet estimanted nutritional needs Pt current nutrition is Vital 1.2 running at 50ml/hr over 22hrs, with a goal rate of 55ml/hr. Nutrition recommendation: Increase to goal rate of 55ml/hr as tolerated. Last recorded weight is 99.8 kg -down from 103kg 03/29. Bowel Motility: No BM reported, suppository administered Labs Reviewed: Na:133, BUN: 38, GLU:115, Hgb:9.4, HCT:29.8, Alb:3.0 Meds Noted: no sedation at this time, keppra, ativan, flagyl, Dextrose 10% Skin:WNL Additional Notes: Pt continues on mechanical vent and tube feeding. Nursing reported residuals of 200ml yesterday and TF was held. TF restarted and currently at 50ml/hr, which is almost to goal. Current TF providinkcals, 82.5g PRO. Propofol d/c'd. Continue with recommendation to advance to goal rate of 55ml/hr. Will monitor daily in ICU rounds and follow up T/F.
[2022-03-30 11:28] LABS: Glucose Point of Care 223 mg/dl (65-105)
[2022-03-30] MEDS: BISACODYL 10 MG SUPPOSITORY RECTAL (11:34)
[2022-03-30] MEDS: INSULIN ASPART (*BKC) 100 UNITS/ML SUB-Q (12:30)
--- NOTE | 2022-03-30 13:33 | WPDINTPN ---
Progress Note: A&P Assessment and Plan (1) Acute respiratory failure: Code(s): J96.00 - Acute respiratory failure, unspecified whether with hypoxia or hypercapnia Status: Acute Assessment and Plan: Acute Respiratory failure secondary to cardiac arrest, possible aspiration pneumonia Continue full mechanical ventilation support to prevent hypoxemia/hypercarbia and end organ damage. ABG, chest CT and PCXR reviewed, PEEP of 5 and FiO2 of 25% - Weaned off sedation (03/25) for EEG but pt had tremors and seizures, patient was started on Versed infusion with improvement in tremors and seizures, patient also started on Keppra and valproic acid - continue aztreonam (03/23) and vancomycin (03/26) for pneumonia (stop date for both antibiotics 03/30/2022) - 03/23 Urine and Blood cultures are negative Sputum cultures grew yeast which is likely colonization Procalcitonin level 0.6 (2) Aspiration pneumonia: Code(s): J69.0 - Pneumonitis due to inhalation of food and vomit Status: Acute Assessment and Plan: see above (3) Cardiac arrest: Code(s): I46.9 - Cardiac arrest, cause unspecified Status: Acute Assessment and Plan: VFib cardiac arrest likely secondary to STEMI 03/22/22: status post partially successful PCI - continue to hold antiplatelet and due to intra-abdominal hemorrhage as hemoglobin continues to drift down, discussed with Cardiology - continue statin and low-dose ARB -Coreg held due to bradycardia If arrhythmia recurs will start amiodarone infusion, 03/23 Echocardiogram showed: Borderline LV enlargement, moderate LVH. Moderate LV systolic dysfunction, ejection fraction approximately 40%. Diastolic dysfunction is present. Moderate left atrial enlargement. Mild right atrial enlargement. Normal mitral valve structure, mild mitral regurgitation. Mild aortic valve sclerosis, mild aortic stenosis, valve area 1.7 cm2. Mild tricuspid regurgitation, moderate pulmonary hypertension, RVSP 48 mmHg. (4) ST elevation [place] (STEMI): Code(s): I21.3 - ST elevation (STEMI) myocardial infarction of unspecified site Status: Acute Assessment and Plan: Status post partially successful PCI to terminal portion of the LAD with [facility] of some flow into the apical portion of the vessel with crossing the lesion with the guidewire and approaching with the balloon (5) Ventricular fibrillation: Code(s): I49.01 - Ventricular fibrillation Status: Acute Assessment and Plan: Likely secondary to ST-elevation [place], patient was initially on amiodarone which has been discontinued (6) Intra abdominal hemorrhage: Code(s): R58 - Hemorrhage, not elsewhere classified Status: Acute Assessment and Plan: patient's chest CT shows small amount of hemoperitoneum with post multiple possible etiologies patient received CPR leading to sternal and rib fractures, patient also received anticoagulation for her PCI, she had is femoral arterial puncture for PCI and also had some bleeding on removal of sheath requiring extended pressure Plavix is on hold (patient has allergy to aspirin) cardiology is aware Transfuse if needed Coags are in acceptable range 03/26/2022 CT scan of the abdomen and pelvis Small pleural effusions. 2. Airspace opacities in the lower lobes with volume loss, likely predominantly atelectasis. Pneumonia cannot be excluded. 3. Acute fractures of right fifth and sixth ribs again seen. (7) Rib fracture: Code(s): S22.39XA - Fracture of one rib, unspecified side, initial encounter for closed fracture Status: Acute Assessment and Plan: patient sustained sternal and right 5th and 6th rib fractures which are likely from CPR no flail chest conservative management (8) Acute kidney injury: Code(s): N17.9 - Acute kidney failure, unspecified Status: Acute Assessment and Plan: RESOLVED baseline creatinine is unknown Initial acut
[2022-03-30 15:45] LABS: Glucose Point of Care 109 mg/dl (65-105)
--- NOTE | 2022-03-30 16:11 | PM.PNCARD ---
Progress Note: A&P Assessment and Plan (1) ST elevation VA (STEMI): Code(s): I21.3 - ST elevation (STEMI) myocardial infarction of unspecified site Status: Acute Assessment and Plan: Taken to the cardiac cath lab nurse emergently last evening following out of hospital cardiac arrest, VF, and EKG with evidence of acute anterior VA. She was found to have a 100% acute occlusion of the distal LAD. Efforts to revascularize this were not successful and the case ended without intervention to the LAD lesion and she was transferred to the ICU in stable but critical condition. Echo showed mildly reduced systolic function with EF 40%. Currently, her aspirin and plavix are on hold due to small acute abdominal hemorrhage. -Resume clopidogrel 75 mg daily. Patient has an aspirin allergy. (2) Cardiac arrest: Code(s): I46.9 - Cardiac arrest, cause unspecified Status: Acute Assessment and Plan: Witnessed cardiac arrest at home. Did receive CPR from a bystander prior to EMS arrival. Found to be in VF upon arrival to the emergency department. (3) Intra abdominal hemorrhage: Code(s): R58 - Hemorrhage, not elsewhere classified Status: Acute Assessment and Plan: Chest CT shows small amount of hemoperitoneum. Probably secondary to CPR, anticoagulation for PCI. H&H stable thus far. Hold ASA, plavix. Hemoglobin is still drifting down. - I would start clopidogrel 75 mg p.o. as soon as is deemed safe. Patient has an aspirin allergy. (4) Anoxic brain injury: Code(s): G93.1 - Anoxic brain damage, not elsewhere classified Status: Acute Assessment and Plan: Out of hospital cardiac arrest with unknown down time, medical record indicates that she received CPR from a bystander at home prior to EMS arrival. She did achieve ROSC after 2 rounds of epinephrine/ACLS protocol. Unfortunately she is exhibiting some signs of anoxic brain injury including myoclonic jerking and no purposeful movements with attempts to withdraw sedation. EEG results are pending. Management per critical care. (5) Paroxysmal atrial fibrillation: Code(s): I48.0 - Paroxysmal atrial fibrillation Status: Acute Assessment and Plan: Remains in controlled atrial fibrillation. Hold off on anticoagulation for now given intra-abdominal hemorrhage. H&H stable. May resume if no other contraindications. Additional Plan Subjective Date/time seen: Date of service: 03/30/22 16:11 Interval history: 76-year-old lady with: Presentation originally with acute anterior wall VA with distal occlusion of the LAD. Partially successful PCI is described in the cardiac cath lab nurse note. Despite this she has not had a reasonable neurological recovery remains in the ICU unresponsive on ventilator support. Obviously prognosis is extremely poor in this setting. We do not have any additional cardiac recommendations at this time. Supportive care is being pursued. No change overnight. Patient remains unresponsive unfortunately. Patient unable to provide history due to sedation and intubation. Review of Systems Review of Systems: ROS unobtainable: Yes unobtainable due to endotracheal tube and unobtainable due to medical condition Exam Const: General: comfortable; No alert, awake or in distress Other: elderly female unresponsive, intubated on mechanical ventilatory support HENMT: Head: normal to inspection Mouth: Yes moist mucous membranes Other: Tongue swollen and ecchymotic Eyes: General: appearance normal, both eyes and all related structures Sclera: sclerae normal Neck: Neck: supple Other: Triple lumen central line RIJ Chest: Chest palpation & inspection: normal inspection of the chest Resp: Effort & Inspection: other (mechanically ventilated ) Auscultation: clear to auscultation bilaterally (only able to auscultate anteriorally ) Other: Coarse breath sounds bilaterally Cardio: Rate:
[2022-03-30 20:24] LABS: Glucose Point of Care 140 mg/dl (65-105)
[2022-03-30 23:39] LABS: Glucose Point of Care 133 mg/dl (65-105)
[2022-03-31] VITALS (23 sets, daily range): BP systolic 95–127; BP diastolic 57–106; PULSE 67–101; RESP 12–27; TEMP 36.4–37.6; O2SAT 94–99
[2022-03-31] MEDS: levETIRAcetam 1000MG/NACL100ML 1,000 MG/100 ML BAG 400 MG IVPB ×3 (01:11→17:32)
[2022-03-31 05:35] LABS: Alveolar/Arterial O2 Gradient 21.1 mmHg; Base Excess ABG 3.5 mEq/l (+/-2.0); Carboxyhemoglobin 0.3 % THb (0-2.0); Fractional Inspired Oxygen 25 %; HCO3 ABG 25.5 mEq/l (22.0-26.0); Methemoglobin ABG 0.4 %THb (0-1.5); Oxygen Content ABG 13.1 %vol (16.0-22.0); Oxygen Saturation ABG 98.8 % (95.0-100.0); Oxyhemoglobin 97.4 % THb (90.0-100.0); PCO2 ABG 29.4 mmHg (35.0-45.0); PO2 ABG 122.2 mmHg (80.0-100.0); PO2 FiO2 Ratio Arterial Blood 4.89 %; Reduced Hemoglobin 1.9 %THb (0-5.0); Total Hemoglobin 9.4 g/dL (12.0-18.0); pH ABG 7.556 (7.350-7.450)
[2022-03-31 05:36] LABS: Device VENTILATOR; Modified Allen's Test Unable to perform; Site Drawn RIGHT RADIAL
[2022-03-31 05:37] LABS: Arterial Blood Gas PEEP 5 cmH2O; Arterial Blood Gas Tidal Volume 350 ml; Arterial Blood Gas Vent Mode CMV; Arterial Blood Gas Ventilator rate 16 /MIN
[2022-03-31 05:39] LABS: Basophils Percent Auto 0.1 % (0.2-1.2); Eosinophils Percent Auto 0.1 % (0-4.4); Hemoglobin 10.1 g/dL (12.0-15.0); Immature Granulocyte Absolute 0.13 K/mm3 (0.00-0.031); Lymphocytes Percent Auto 12.8 % (18.3-44.2); Mean Corpuscular HGB Conc 32.6 g/dl (32-36); Mean Corpuscular Volume 64.6 fl (80-100); Mean Platelet Volume 8.8 fl (7.4-10.4); Monocytes Absolute Auto 1.6 K/mm3 (0.1-0.6); Monocytes Percent Auto 12.9 % (2.6-8.5); Neutrophils Absolute Auto 9.2 K/mm3 (1.3-6.7); Neutrophils Percent Auto 73.1 % (45.5-73.1); Platelet Count Result 382 k/mm3 (150-375); Red Cell Distribution Width 15.3 % (11.5-14.5); White Blood Count 12.5 K/mm3 (4.5-10.0)
[2022-03-31] MEDS: CENTRAL LINE FLUSH 10 ML IV PUSH ×3 (05:42→22:26)
[2022-03-31 05:59] LABS: Alanine Aminotransferase 46 U/L (6-35); Albumin Level 3.1 g/dL (3.5-5.1); Alkaline Phosphatase 74 U/L (38-126); Anion Gap 6 mmol/L (8-16); Aspartate Amino Transferase 71 U/L (14-36); Bilirubin,Total 0.2 mg/dL (0.2-1.3); Blood Urea Nitrogen 38 mg/dL (7-17); Carbon Dioxide 25 mmol/L (22-30); Chloride 101 mmol/L (98-107); Estimated CRCL calculation 59 ml/min; Estimated Glomerular Filt Rate > 60; Glucose 105 mg/dL (65-110); Magnesium 2.4 mg/dL (1.6-2.3); Phosphorus 3.8 mg/dL (2.5-4.5); Potassium 4.4 mmol/L (3.4-5.0); Sodium 132 mmol/L (137-145)
--- NOTE | 2022-03-31 07:10 | PC.NURSE ---
Midazolam paused per Dr. Cornejo order of sedation holiday this AM with EEG ordered for today
[2022-03-31 08:06] LABS: Glucose Point of Care 124 mg/dl (65-105)
--- NOTE | 2022-03-31 08:29 | PM.IMPN ---
Progress Note: A&P Assessment and Plan (1) Anoxic brain injury: Code(s): G93.1 - Anoxic brain damage, not elsewhere classified Status: Acute Assessment and Plan: Patient was down for approximately 18 minutes prior to ROSC. Brain CT showing small region of gyral enhancement at the left frontoparietal region most likely CVA. Also of note are bilateral occipital lobe infarcts subacute versus chronic. Patient without history of stroke. She completed the cooling protocol. Repeat CT brain 03/24 some areas with loss of varner-white differentiation suggestive of toxic brain injury and subacute bilateral occipital lobe infarcts. Plavix on hold due to patient abdominal hemorrhage. EEG 03/25 showing generalized periodic discharges c/w severe, bihemispheric cerebral dysfunction. She was sedated due to myoclonic jerking and possible seizure. She remains on Keppra and VPA. Sedation stopped again today to assess neurologic function. Repeat EEG ordered. Neurology consulted and appreciate their input. Family meeting for later today. Not tolerating TF but having BMs. Reglan started (2) Ventricular fibrillation: Code(s): I49.01 - Ventricular fibrillation Status: Acute Assessment and Plan: Patient with VFib arrest in the field. CPR started immediately by family and then by EMS. Shocked once which resulted in PEA. [place] related to STEMI/ischemia. She was intermittently bradycardic so Coreg held. Continue to monitor on telemetry. Appreciate Cardiology input. (3) Cardiac arrest: Code(s): I46.9 - Cardiac arrest, cause unspecified Status: Acute Assessment and Plan: Patient with acute cardiac arrest in the field. STEMI called in the field and patient underwent left heart catheterization on arrival. She had balloon angioplasty but no stent placement to the distal LAD. Continue Crestor and Cozaar; Coreg on hold. Plavix remains on hold. Initially held due to intra-abdominal hemorrhage but keep on hold since she may need Trach/PEG. Appreciate Cardiology input. (4) ST elevation [place] (STEMI): Code(s): I21.3 - ST elevation (STEMI) myocardial infarction of unspecified site Status: Acute Assessment and Plan: Inferior STEMI noted by EKG in the field once ROSC was achieved. Left heart catheterization on admission with single-vessel CAD with acute [place] with total acute occlusion of the terminal apical portion of the LAD. Very tortuous LAD, anomalous non-diseased RCA and non-diseased LCx. Patient is status post balloon angioplasty with some improvement in flow to the distal LAD. Echo showing EF 40-45% and diastolic dysfunction, moderate LAE, mild valvular disease and moderate pulmonary HTN. Continue medical management. (5) Acute respiratory failure: Code(s): J96.00 - Acute respiratory failure, unspecified whether with hypoxia or hypercapnia Status: Acute Assessment and Plan: As above. Acute respiratory failure related to her cardiac arrest. Patient may have aspirated as well contributing to her acute respiratory failure. She completed a course of abx for aspiration pneumonia. On minimal vent settings. Continue mechanical ventilation. Appreciate captain airline pilot input. Unless her mental status improves, she most likely will need trach and PEG if family wants to continue full care. (6) Aspiration pneumonia: Code(s): J69.0 - Pneumonitis due to inhalation of food and vomit Status: Acute Assessment and Plan: CT the chest showing acute fracture of the sternum and right 5th and 6th ribs. Chest CT also shows mild atelectasis but no significant infiltrates. CXR today reviewed showing CMG and improving pulm edema and left pl effusion. Fevers resolved. She completed a course of Aztreonam and vancomycin (abx stopped 03/30). White count up to 12K today so monitor closely. (7) Atrial fibrillation: Code(s): I48.91 - Unspecified atrial fibrillation Status: Acute
[2022-03-31] MEDS: MINERAL OIL/WHITE PETROLATUM OINTMENT 1 APPLIC EACH EYE ×2 (08:31→20:24)
[2022-03-31] MEDS: polyethylene glycoL 3350 17 GM POWD.PACK PO (08:32)
[2022-03-31] MEDS: LOSARTAN POTASSIUM 12.5 MG TABLET PO (08:32)
[2022-03-31] MEDS: ROSUVASTATIN 10 MG TABLET 20 MG PO (08:32)
--- NOTE | 2022-03-31 09:06 | WPDINTPN ---
Progress Note: A&P Assessment and Plan (1) Acute respiratory failure: Code(s): J96.00 - Acute respiratory failure, unspecified whether with hypoxia or hypercapnia Status: Acute Assessment and Plan: Acute Respiratory failure secondary to cardiac arrest, possible aspiration pneumonia Continue full mechanical ventilation support to prevent hypoxemia/hypercarbia and end organ damage. ABG, Chest CT and PCXR reviewed, PEEP of 5 and FiO2 of 25% Weaned off sedation (03/25) for EEG but pt had tremors and seizures, patient was started on Versed infusion with improvement in tremors and seizures, patient also started on Keppra and valproic acid Completed course of aztreonam (03/23) and vancomycin (03/26) for pneumonia on 03/30/202203/23 Urine and Blood cultures are negative Sputum cultures grew yeast which is likely colonization Procalcitonin level 0.6 Weaning will depend on no neurological improvement. Patient will likely need tracheostomy eventually (2) Aspiration pneumonia: Code(s): J69.0 - Pneumonitis due to inhalation of food and vomit Status: Acute Assessment and Plan: see above (3) Cardiac arrest: Code(s): I46.9 - Cardiac arrest, cause unspecified Status: Acute Assessment and Plan: VFib cardiac arrest likely secondary to STEMI 03/22/22: status post partially successful PCI - continue to hold antiplatelet and due to intra-abdominal hemorrhage as hemoglobin continues to drift down, discussed with Cardiology - continue statin and low-dose ARB -Coreg held due to bradycardia If arrhythmia recurs will start amiodarone infusion, 03/23 Echocardiogram showed: Borderline LV enlargement, moderate LVH. Moderate LV systolic dysfunction, ejection fraction approximately 40%. Diastolic dysfunction is present. Moderate left atrial enlargement. Mild right atrial enlargement. Normal mitral valve structure, mild mitral regurgitation. Mild aortic valve sclerosis, mild aortic stenosis, valve area 1.7 cm2. Mild tricuspid regurgitation, moderate pulmonary hypertension, RVSP 48 mmHg. (4) ST elevation [place] (STEMI): Code(s): I21.3 - ST elevation (STEMI) myocardial infarction of unspecified site Status: Acute Assessment and Plan: Status post partially successful PCI to terminal portion of the LAD with hindu of some flow into the apical portion of the vessel with crossing the lesion with the guidewire and approaching with the balloon (5) Ventricular fibrillation: Code(s): I49.01 - Ventricular fibrillation Status: Acute Assessment and Plan: Likely secondary to ST-elevation [place], patient was initially on amiodarone which has been discontinued (6) Intra abdominal hemorrhage: Code(s): R58 - Hemorrhage, not elsewhere classified Status: Acute Assessment and Plan: patient's chest CT shows small amount of hemoperitoneum with post multiple possible etiologies patient received CPR leading to sternal and rib fractures, patient also received anticoagulation for her PCI, she had is femoral arterial puncture for PCI and also had some bleeding on removal of sheath requiring extended pressure CT abdomen pelvis done on 03/26 did not show any hematoma Plavix has been on hold hold (patient has allergy to aspirin). I will discuss with family today during family meeting and then depending on goals of care will decide whether to resume at what time as anticipate patient will need tracheostomy and a PEG tube placement in near future Transfuse if needed Coags are in acceptable range 03/26/2022 CT scan of the abdomen and pelvis Small pleural effusions. 2. Airspace opacities in the lower lobes with volume loss, likely predominantly atelectasis. Pneumonia cannot be excluded. 3. Acute fractures of right fifth and sixth ribs again seen. (7) Rib fracture: Code(s): S22.39XA - Fracture of one rib, unspecified side, initial encounter for closed fracture Status: Acute
[2022-03-31] MEDS: PANTOPRAZOLE SODIUM IV 40 MG VIAL IV PUSH (09:29)
--- NOTE | 2022-03-31 10:47 | PCFNICU ---
ICU Rounding Note: Pt current nutrition is Vital 1.2 at 55ml/hr. Nutrition recommendation: Continue with current orders as tube feed is at goal rate Last recorded weight is 100.8 kg - stable at this time. Bowel Motility: +BM 03/30 Labs Reviewed:Hgb:10.1, HCT:31, Alb:3.1, NA:132, BUN:38 Meds Noted: Reglan added due to residuals of tube feeds (200ml) Skin:WNL Additional Notes: Tube feed is currently at goal rate of 55ml/hr over 22hrs. Providin kcals/90 gm protein/981 ml water. Pt was having residuals fo 200mls, placed on reglan and tolerating at this time. Noted possible Trach and PEG placement next week. Will monitor daily in ICU rounds as reasses every 3 days.
[2022-03-31 12:38] LABS: Glucose Point of Care 158 mg/dl (65-105)
[2022-03-31] MEDS: METOCLOPRAMIDE HCL 10 MG TABLET FEED TUBE ×3 (12:47→23:58)
[2022-03-31 16:55] LABS: Glucose Point of Care 147 mg/dl (65-105)
[2022-03-31] MEDS: ALTEPLASE 2 MG VIAL (CATHFLO) IV PUSH (20:25)
[2022-03-31 20:38] LABS: Glucose Point of Care 154 mg/dl (65-105)
[2022-04-01] VITALS (19 sets, daily range): BP systolic 103–156; BP diastolic 65–98; PULSE 64–113; RESP 16–29; TEMP 36.6–37.8; O2SAT 96–100
[2022-04-01 00:02] LABS: Glucose Point of Care 168 mg/dl (65-105)
[2022-04-01] MEDS: levETIRAcetam 1000MG/NACL100ML 1,000 MG/100 ML BAG 400 MG IVPB ×3 (01:42→17:01)
[2022-04-01 04:36] LABS: Basophils Percent Auto 0.3 % (0.2-1.2); Eosinophils Percent Auto 0.1 % (0-4.4); Hematocrit 32.4 % (37.0-47.0); Hemoglobin 10.6 g/dL (12.0-15.0); Immature Granulocyte Absolute 0.47 K/mm3 (0.00-0.031); Immature Granulocyte Percent A 2.9 % (0-0.5); Lymphocytes Absolute Auto 1.61 K/mm3 (0.9-3.2); Lymphocytes Percent Auto 10.1 % (18.3-44.2); Mean Corpuscular HGB Conc 32.7 g/dl (32-36); Mean Corpuscular Hemoglobin 21.2 pg (26-34); Mean Corpuscular Volume 64.9 fl (80-100); Mean Platelet Volume 8.9 fl (7.4-10.4); Monocytes Absolute Auto 1.9 K/mm3 (0.1-0.6); Monocytes Percent Auto 11.9 % (2.6-8.5); Neutrophils Percent Auto 74.7 % (45.5-73.1); Platelet Count Result 388 k/mm3 (150-375); Red Blood Count 4.99 M/mm3 (4.2-5.4); Red Cell Distribution Width 15.3 % (11.5-14.5)
[2022-04-01 04:46] LABS: Alanine Aminotransferase 56 U/L (6-35); Albumin Level 3.3 g/dL (3.5-5.1); Alkaline Phosphatase 91 U/L (38-126); Anion Gap 5 mmol/L (8-16); Aspartate Amino Transferase 81 U/L (14-36); Bilirubin,Total 0.3 mg/dL (0.2-1.3); Blood Urea Nitrogen 37 mg/dL (7-17); Calcium 7.8 mg/dL (8.4-10.2); Carbon Dioxide 27 mmol/L (22-30); Chloride 100 mmol/L (98-107); Estimated CRCL calculation 59 ml/min; Estimated Glomerular Filt Rate > 60; Glucose 127 mg/dL (65-110); Magnesium 2.4 mg/dL (1.6-2.3); Potassium 4.1 mmol/L (3.4-5.0); Sodium 132 mmol/L (137-145)
[2022-04-01 04:53] LABS: Base Excess ABG -0.9 mEq/l (+/-2.0); Carboxyhemoglobin 0.3 % THb (0-2.0); Fractional Inspired Oxygen 25 %; HCO3 ABG 21.5 mEq/l (22.0-26.0); Methemoglobin ABG 0.4 %THb (0-1.5); Oxygen Content ABG 15.4 %vol (16.0-22.0); Oxygen Saturation ABG 97.9 % (95.0-100.0); Oxyhemoglobin 96.2 % THb (90.0-100.0); PCO2 ABG 28.6 mmHg (35.0-45.0); PO2 ABG 95.3 mmHg (80.0-100.0); PO2 FiO2 Ratio Arterial Blood 3.81 %; Reduced Hemoglobin 3.1 %THb (0-5.0); Total Hemoglobin 11.3 g/dL (12.0-18.0); pH ABG 7.493 (7.350-7.450)
[2022-04-01 04:54] LABS: Device VENTILATOR; Modified Allen's Test Pass; Site Drawn RIGHT RADIAL
[2022-04-01 04:55] LABS: Arterial Blood Gas PEEP 5 cmH2O; Arterial Blood Gas Tidal Volume 320 ml; Arterial Blood Gas Vent Mode CMV; Arterial Blood Gas Ventilator rate 14 /MIN
[2022-04-01] MEDS: METOCLOPRAMIDE HCL 10 MG TABLET FEED TUBE ×3 (05:42→17:01)
[2022-04-01] MEDS: CENTRAL LINE FLUSH 10 ML IV PUSH ×3 (05:42→21:08)
[2022-04-01 08:12] LABS: Glucose Point of Care 154 mg/dl (65-105)
--- NOTE | 2022-04-01 08:40 | PM.IMPN ---
Progress Note: A&P Assessment and Plan (1) Anoxic brain injury: Code(s): G93.1 - Anoxic brain damage, not elsewhere classified Status: Acute Assessment and Plan: Patient was down for approximately 18 minutes prior to ROSC. Brain CT showing small region of gyral enhancement at the left frontoparietal region most likely CVA. Also of note are bilateral occipital lobe infarcts subacute versus chronic. Patient without history of stroke. She completed the cooling protocol. Repeat CT brain 03/24 some areas with loss of varner-white differentiation suggestive of toxic brain injury and subacute bilateral occipital lobe infarcts. EEG 03/25 showing generalized periodic discharges c/w severe, bihemispheric cerebral dysfunction. She was sedated due to myoclonic jerking and possible seizure. She remains on Keppra and VPA. Sedation stopped the morning of 03/31/22. Plavix on hold due to patient abdominal hemorrhage and remains on hold for possible PEG/Trach. Neurology consulted and appreciate their input. Family aware of the severity of her condition and determining next course of action. Tolerating TF now. (2) Ventricular fibrillation: Code(s): I49.01 - Ventricular fibrillation Status: Acute Assessment and Plan: Patient with VFib arrest in the field. CPR started immediately by family and then by EMS. Shocked once for VFib which resulted in PEA. [place] related to STEMI/ischemia. She was intermittently bradycardic so Coreg held but able to be resumed. Continue to monitor on telemetry. Appreciate Cardiology input. (3) Cardiac arrest: Code(s): I46.9 - Cardiac arrest, cause unspecified Status: Acute Assessment and Plan: Patient with acute cardiac arrest in the field. STEMI called in the field and patient underwent left heart catheterization on arrival. She had balloon angioplasty but no stent placement to the distal LAD. Continue Crestor, Coreg and Cozaar. Plavix remains on hold. Initially held due to intra-abdominal hemorrhage but kept on hold since she may need Trach/PEG. Appreciate Cardiology input. (4) ST elevation [place] (STEMI): Code(s): I21.3 - ST elevation (STEMI) myocardial infarction of unspecified site Status: Acute Assessment and Plan: Inferior STEMI noted by EKG in the field once ROSC was achieved. Left heart catheterization on admission with single-vessel CAD with acute [place] with total acute occlusion of the terminal apical portion of the LAD. Very tortuous LAD, anomalous non-diseased RCA and non-diseased LCx. Patient is status post balloon angioplasty with some improvement in flow to the distal LAD. Echo showing EF 40-45% and diastolic dysfunction, moderate LAE, mild valvular disease and moderate pulmonary HTN. Continue medical management. (5) Acute respiratory failure: Code(s): J96.00 - Acute respiratory failure, unspecified whether with hypoxia or hypercapnia Status: Acute Assessment and Plan: As above. Acute respiratory failure related to her cardiac arrest. Patient may have aspirated as well contributing to her acute respiratory failure. She completed a course of abx for aspiration pneumonia. On minimal vent settings. Continue mechanical ventilation. Appreciate processing spec input. Unless her mental status improves, she most likely will need trach and PEG if family wants to continue full care. (6) Aspiration pneumonia: Code(s): J69.0 - Pneumonitis due to inhalation of food and vomit Status: Acute Assessment and Plan: CT the chest showing acute fracture of the sternum and right 5th and 6th ribs. Chest CT also shows mild atelectasis but no significant infiltrates. CXR today reviewed showing CMG and improving pulm edema and left pl effusion. She completed a course of Aztreonam and vancomycin (abx stopped 03/30). White count up to 16K today and now having low grade fevers. Continue to monitor closely. [place] to be changed out. Consider olaf
[2022-04-01] MEDS: polyethylene glycoL 3350 17 GM POWD.PACK PO (09:31)
[2022-04-01] MEDS: ENOXAPARIN 40 MG/0.4 ML SYRINGE SUB-Q (09:33)
[2022-04-01] MEDS: LOSARTAN POTASSIUM 12.5 MG TABLET PO (09:33)
[2022-04-01] MEDS: ROSUVASTATIN 10 MG TABLET 20 MG PO (09:34)
[2022-04-01] MEDS: PANTOPRAZOLE SODIUM IV 40 MG VIAL IV PUSH (09:34)
[2022-04-01] MEDS: carvediloL 3.125 MG TABLET PO ×2 (09:34→21:07)
[2022-04-01] MEDS: MINERAL OIL/WHITE PETROLATUM OINTMENT 1 APPLIC EACH EYE ×2 (09:35→21:06)
--- NOTE | 2022-04-01 11:23 | PCFNICU ---
ICU Rounding Note: Pt current nutrition is Vital AF 1.2 at 55 ml/hr over 22 hours. Last recorded weight is 103.1 kg, up from 96.9 kg on admit. Bowel Motility:+BM reported 04/01 Labs Reviewed:Mg 2.4,BUN 37, Glu 127, Na 132, Alb 3.3, Hct 32.4,Hgb 10.6 Meds Noted: Keppra, Versed, Coreg, Cozaar, Miralax, Crestor Skin:WNL Additional Notes: Patient remains on mechanical vent and tube feedings of Vital AF 1.2 at 55 ml/hr and tolerating per nursing. Current tube feeding at goal rate providing 1452 kcals/91 gms protein. 30 ml free water flush q 4 hours. Pulverizer Feeder is still in discussion with family regarding plan of care. Following daily in ICU rounds and reassessing every Tuesday and Tuesday.
[2022-04-01 12:00] LABS: Glucose Point of Care 148 mg/dl (65-105)
--- NOTE | 2022-04-01 12:11 | PM.PNCARD ---
Progress Note: A&P Additional Plan - Anterior STEMI with inability to fix the distal LAD that was totally occluded. - out of hospital cardic arrest status post CPR - Respiratory failure. - Reported hemoperitoneum secondary to CPR possibly -- anoxic brain injury this is an unfortunate 76-year-old female who apparently had out of the hospital cardiac arrest status post CPR was found to have totally occluded distal LAD with inability to fix it. Patient has allergy to aspirin. - Patient is allergic to aspirin. Plavix is on hold for anticipation for tracheostomy and PEG tube. was held before due to small amount of bleeding noticed. however the CT scan shows small area of bleeding superficial to the right femoral artery but no intra-abdominal hemorrhage? Resume Plavix after the trach and PEG. - Ejection fraction 40%. Subjective Date/time seen: date of tsezzgm71/12/22 12:11 Interval history: 76yo female with HTN here for [id number] cardiac VFib arrest. Patient intubated and unresponsive and thus unable to provide hx. Able to stay off Versed last night. EEG was cancelled by neuro since felt wasn't going to change director. Family discussion with livestock ranch hand yesterday. Patietn remains Full Code but the family will talk amongst themselves. Toerlating tube feedings now. low grade fever noted 04/01- remains intubated, not responsive. Family is thinking about tracheostomy and PEG tube. Review of Systems Review of Systems: ROS unobtainable: Yes unobtainable due to endotracheal tube and unobtainable due to medical condition Exam Const: General: comfortable; No alert, awake or in distress Orientation/consciousness: No patient oriented x3 Other: elderly female unresponsive, intubated on mechanical ventilatory support HENMT: Head: normal to inspection Mouth: Yes moist mucous membranes Other: Tongue swollen and ecchymotic Eyes: General: appearance normal, both eyes and all related structures Sclera: sclerae normal Neck: Neck: supple Other: Triple lumen central line RIJ Chest: Chest palpation & inspection: normal inspection of the chest Resp: Effort & Inspection: other (mechanically ventilated ) Auscultation: clear to auscultation bilaterally (only able to auscultate anteriorally ) Other: Coarse breath sounds bilaterally Cardio: Rate: regular rate Rhythm: abnormal rhythm irregularly irregular Heart sounds: no murmurs Other: GI: Inspection: abdominal wall ecchymosis Auscultation: normal bowel sounds Urinary Catheter: Urinary Catheter: patent and draining Skin: General skin exam: normal color Other: Groin arterial insertion site free from bleeding, hematoma Neuro: General: No patient oriented x3 Speech: No normal speech Motor exam (neuro): Motor abnormalites present myoclonus Other: Intubated and sedated Extrem: General: normal to inspection Psych: Appearance: grossly abnormal Mental Status: mental status grossly abnormal Objective Data Vital Signs Vital Signs: Vital Signs - 24 hr 03/31/22 14:00 03/31/22 14:40 03/31/22 16:00 Temperature 36.5 C 36.9 C Pulse Rate 79 78 78 Respiratory Rate 22 H 23 H Blood Pressure 100/57 L 105/63 Pulse Oximetry 97 97 95 03/31/22 16:58 03/31/22 18:00 03/31/22 20:00 Temperature 36.9 C 37.3 C Pulse Rate 90 85 78 Respiratory Rate 27 H 27 H Blood Pressure 118/64 122/77 Pulse Oximetry 96 96 97 03/31/22 20:07 03/31/22 22:00 03/31/22 23:10 Temperature 37.6 C Pulse Rate 73 72 75 Respiratory Rate 24 H Blood Pressure 127/78 Pulse Oximetry 96 96 97 04/01/22 00:00 04/01/22 02:00 04/01/22 02:15 Temperature 37.7 C H 37.5 C Pulse Rate 113 H 90 107 H Respiratory Rate 24 H 28 H Blood Pressure 156/87 H 143/98 H Pulse Oximetry 98 98 98 04/01/22 04:00 04/01/22 05:19 04/01/22 06:00 Temperature 37.8 C H 37.5 C Pulse Rate 97 94 86 Respiratory Rate 29 H 25 H Blood Pressure 135/91 H 136/77 Pulse Oximetry 99 100 99 04/01/22 08:00
--- NOTE | 2022-04-01 13:07 | WPDINTPN ---
Progress Note: A&P Assessment and Plan (1) Acute respiratory failure: Code(s): J96.00 - Acute respiratory failure, unspecified whether with hypoxia or hypercapnia Status: Acute Assessment and Plan: Acute Respiratory failure secondary to cardiac arrest, possible aspiration pneumonia Continue full mechanical ventilation support to prevent hypoxemia/hypercarbia and end organ damage. ABG, Chest CT and PCXR reviewed, PEEP of 5 and FiO2 of 25% Weaned off sedation (03/25) for EEG but pt had tremors and seizures, patient was started on Versed infusion with improvement in tremors and seizures, patient also started on Keppra and valproic acid Completed course of aztreonam (03/23) and vancomycin (03/26) for pneumonia on 03/30/202203/23 Urine and Blood cultures are negative Sputum cultures grew yeast which is likely colonization Procalcitonin level 0.6 Weaning will depend on no neurological improvement. Patient will likely need tracheostomy eventually (2) Aspiration pneumonia: Code(s): J69.0 - Pneumonitis due to inhalation of food and vomit Status: Acute Assessment and Plan: see above (3) Cardiac arrest: Code(s): I46.9 - Cardiac arrest, cause unspecified Status: Acute Assessment and Plan: VFib cardiac arrest likely secondary to STEMI 03/22/22: status post partially successful PCI - continue to hold antiplatelet and due to intra-abdominal hemorrhage as hemoglobin continues to drift down, discussed with Cardiology - continue statin and low-dose ARB -Coreg which was held due to bradycardia will be resumed at low-dose If arrhythmia recurs will start amiodarone infusion, 03/23 Echocardiogram showed: Borderline LV enlargement, moderate LVH. Moderate LV systolic dysfunction, ejection fraction approximately 40%. Diastolic dysfunction is present. Moderate left atrial enlargement. Mild right atrial enlargement. Normal mitral valve structure, mild mitral regurgitation. Mild aortic valve sclerosis, mild aortic stenosis, valve area 1.7 cm2. Mild tricuspid regurgitation, moderate pulmonary hypertension, RVSP 48 mmHg. (4) ST elevation [place] (STEMI): Code(s): I21.3 - ST elevation (STEMI) myocardial infarction of unspecified site Status: Acute Assessment and Plan: Status post partially successful PCI to terminal portion of the LAD with pentecostalism of some flow into the apical portion of the vessel with crossing the lesion with the guidewire and approaching with the balloon (5) Ventricular fibrillation: Code(s): I49.01 - Ventricular fibrillation Status: Acute Assessment and Plan: Likely secondary to ST-elevation [place], patient was initially on amiodarone which has been discontinued (6) Intra abdominal hemorrhage: Code(s): R58 - Hemorrhage, not elsewhere classified Status: Acute Assessment and Plan: patient's chest CT shows small amount of hemoperitoneum with post multiple possible etiologies patient received CPR leading to sternal and rib fractures, patient also received anticoagulation for her PCI, she had is femoral arterial puncture for PCI and also had some bleeding on removal of sheath requiring extended pressure CT abdomen pelvis done on 03/26 did not show any hematoma Plavix has been on hold (patient has allergy to aspirin). Initially it was held due to hematoma but later it was not started as I anticipated the patient may need tracheostomy or PEG tube. At this time goals of care are not clear (see below). Will resume Plavix and monitor Transfuse if needed Coags are in acceptable range 03/26/2022 CT scan of the abdomen and pelvis Small pleural effusions. 2. Airspace opacities in the lower lobes with volume loss, likely predominantly atelectasis. Pneumonia cannot be excluded. 3. Acute fractures of right fifth and sixth ribs again seen. (7) Rib fracture: Code(s): S22.39XA - Fracture of one rib, unspecified side, initial encounter for closed frac
[2022-04-01] MEDS: CLOPIDOGREL BISULFATE 75 MG TABLET PO (14:22)
[2022-04-01 15:47] LABS: Glucose Point of Care 115 mg/dl (65-105)
[2022-04-01 18:05] LABS: Glucose Point of Care 138 mg/dl (65-105)
[2022-04-01 20:27] LABS: Glucose Point of Care 110 mg/dl (65-105)
[2022-04-02] VITALS (20 sets, daily range): BP systolic 109–158; BP diastolic 68–98; PULSE 59–99; RESP 19–28; TEMP 36.4–37.2; O2SAT 94–100
[2022-04-02 00:16] LABS: Glucose Point of Care 124 mg/dl (65-105)
[2022-04-02] MEDS: levETIRAcetam 1000MG/NACL100ML 1,000 MG/100 ML BAG 400 MG IVPB ×3 (02:00→17:19)
[2022-04-02 04:10] LABS: Glucose Point of Care 128 mg/dl (65-105)
[2022-04-02 05:16] LABS: Alveolar/Arterial O2 Gradient 53.2 mmHg; Base Excess ABG 2.8 mEq/l (+/-2.0); Fractional Inspired Oxygen 25 %; HCO3 ABG 25.7 mEq/l (22.0-26.0); Oxygen Content ABG 16.3 %vol (16.0-22.0); Oxygen Saturation ABG 97.2 % (95.0-100.0); Oxyhemoglobin 96.3 % THb (90.0-100.0); PCO2 ABG 33.7 mmHg (35.0-45.0)
[2022-04-02 05:17] LABS: Device VENTILATOR; Modified Allen's Test Pass; Site Drawn RIGHT RADIAL
[2022-04-02 05:18] LABS: Arterial Blood Gas PEEP 5 cmH2O; Arterial Blood Gas Tidal Volume 300 ml; Arterial Blood Gas Vent Mode CMV; Arterial Blood Gas Ventilator rate 14 /MIN
[2022-04-02] MEDS: CENTRAL LINE FLUSH 10 ML IV PUSH ×3 (05:42→20:57)
[2022-04-02] MEDS: METOCLOPRAMIDE HCL 10 MG TABLET FEED TUBE ×4 (05:42→17:20)
[2022-04-02 06:30] LABS: Hematocrit 31.9 % (37.0-47.0); Hemoglobin 10.1 g/dL (12.0-15.0); Mean Corpuscular HGB Conc 31.7 g/dl (32-36); Mean Corpuscular Hemoglobin 21.1 pg (26-34); Mean Corpuscular Volume 66.7 fl (80-100); Platelet Count Result 376 k/mm3 (150-375); Red Blood Count 4.78 M/mm3 (4.2-5.4); Red Cell Distribution Width 15.4 % (11.5-14.5); White Blood Count 15.4 K/mm3 (4.5-10.0)
[2022-04-02 06:42] LABS: Alanine Aminotransferase 63 U/L (6-35); Albumin Level 3.1 g/dL (3.5-5.1); Alkaline Phosphatase 89 U/L (38-126); Anion Gap 7 mmol/L (8-16); Aspartate Amino Transferase 98 U/L (14-36); Bilirubin,Total 0.2 mg/dL (0.2-1.3); Blood Urea Nitrogen 29 mg/dL (7-17); Calcium 7.8 mg/dL (8.4-10.2); Carbon Dioxide 27 mmol/L (22-30); Chloride 101 mmol/L (98-107); Estimated CRCL calculation 69 ml/min; Estimated Glomerular Filt Rate > 60; Glucose 137 mg/dL (65-110); Magnesium 2.2 mg/dL (1.6-2.3); Sodium 135 mmol/L (137-145)
[2022-04-02 07:11] LABS: Vancomycin Trough < 5.0 ug/mL (10.0-20.0)
[2022-04-02 07:58] LABS: Glucose Point of Care 125 mg/dl (65-105)
[2022-04-02] MEDS: carvediloL 3.125 MG TABLET PO (08:00)
[2022-04-02] MEDS: LOSARTAN POTASSIUM 12.5 MG TABLET PO (08:00)
[2022-04-02] MEDS: ROSUVASTATIN 10 MG TABLET 20 MG PO (08:00)
[2022-04-02] MEDS: PANTOPRAZOLE SODIUM IV 40 MG VIAL IV PUSH (08:01)
[2022-04-02] MEDS: polyethylene glycoL 3350 17 GM POWD.PACK PO (08:01)
[2022-04-02] MEDS: MINERAL OIL/WHITE PETROLATUM OINTMENT 1 APPLIC EACH EYE ×2 (08:02→21:24)
[2022-04-02] MEDS: ENOXAPARIN 40 MG/0.4 ML SYRINGE SUB-Q (08:09)
--- NOTE | 2022-04-02 08:12 | PM.IMPN ---
Progress Note: A&P Assessment and Plan (1) Anoxic brain injury: Code(s): G93.1 - Anoxic brain damage, not elsewhere classified Status: Acute Assessment and Plan: Patient was down for approximately 18 minutes prior to ROSC. Brain CT on admission showing small region of gyral enhancement at the left frontoparietal region most likely CVA with bilateral occipital lobe infarcts subacute versus chronic. Patient without history of stroke. She completed the cooling protocol. Repeat CT brain 03/24 showing some areas with loss of varner-white differentiation suggestive of toxic brain injury and subacute bilateral occipital lobe infarcts. EEG 03/25 showing generalized periodic discharges c/w severe, bihemispheric cerebral dysfunction. She was sedated due to myoclonic jerking and possible seizure. She remains on Keppra and VPA. Sedation stopped the morning of 03/31/22. Plavix was on hold due to abdominal hemorrhage but resumed; will be held again if possible PEG/Trach. Neurology consulted and appreciate their input. Family aware of the severity of her condition and they are determining next course of action. Tolerating TF now. (2) Ventricular fibrillation: Code(s): I49.01 - Ventricular fibrillation Status: Acute Assessment and Plan: Patient with VFib arrest in the field. CPR started immediately by family and then by EMS. Shocked once for VFib which resulted in PEA. [place] related to STEMI/ischemia. Continue to monitor on telemetry. Appreciate Cardiology input. (3) Cardiac arrest: Code(s): I46.9 - Cardiac arrest, cause unspecified Status: Acute Assessment and Plan: Patient with acute cardiac arrest in the field. STEMI called in the field and patient underwent left heart catheterization on arrival. She had balloon angioplasty but no stent placement to the distal LAD. Continue Crestor, Coreg and Cozaar. Plavix was on hold initially held due to intra-abdominal hemorrhage but resumed; may need to hold for Trach/PEG. Appreciate Cardiology input. (4) ST elevation NC (STEMI): Code(s): I21.3 - ST elevation (STEMI) myocardial infarction of unspecified site Status: Acute Assessment and Plan: Inferior STEMI noted by EKG in the field once ROSC was achieved. Left heart catheterization on admission with single-vessel CAD with acute NC with total acute occlusion of the terminal apical portion of the LAD. Very tortuous LAD, anomalous non-diseased RCA and non-diseased LCx. Patient is status post balloon angioplasty with some improvement in flow to the distal LAD. Echo showing EF 40-45% and diastolic dysfunction, moderate LAE, mild valvular disease and moderate pulmonary HTN. Continue medical management. (5) Acute respiratory failure: Code(s): J96.00 - Acute respiratory failure, unspecified whether with hypoxia or hypercapnia Status: Acute Assessment and Plan: As above. Acute respiratory failure related to her cardiac arrest. Patient may have aspirated as well contributing to her acute respiratory failure. She completed a course of abx for aspiration pneumonia. On minimal vent settings. Continue mechanical ventilation. Appreciate psychometrist input. Unless her mental status improves, she most likely will need trach and PEG if family wants to continue full care. (6) Aspiration pneumonia: Code(s): J69.0 - Pneumonitis due to inhalation of food and vomit Status: Acute Assessment and Plan: CT the chest showing acute fracture of the sternum and right 5th and 6th ribs. Chest CT also shows mild atelectasis but no significant infiltrates. CXR today reviewed showing CMG and bibasilar airspace disease. She completed a course of Aztreonam and vancomycin (abx stopped 03/30). White count up to 16K yesterday and was having low grade fevers but WBC slightly better and no further fevers. [place] was changed out. Discussed with psychometrist about removing central line. Continue to
--- NOTE | 2022-04-02 09:37 | WPDINTPN ---
Progress Note: A&P Assessment and Plan (1) Acute respiratory failure: Code(s): J96.00 - Acute respiratory failure, unspecified whether with hypoxia or hypercapnia Status: Acute Assessment and Plan: Acute Respiratory failure secondary to cardiac arrest, possible aspiration pneumonia Continue full mechanical ventilation support to prevent hypoxemia/hypercarbia and end organ damage. ABG, Chest CT and PCXR reviewed, PEEP of 5 and FiO2 of 25% Weaned off sedation (03/25) for EEG but pt had tremors and seizures, patient was started on Versed infusion with improvement in tremors and seizures, patient also started on Keppra and valproic acid Completed course of aztreonam (03/23) and vancomycin (03/26) for pneumonia on 03/30/202203/23 Urine and Blood cultures are negative Sputum cultures grew yeast which is likely colonization Procalcitonin level 0.6 Weaning will depend on no neurological improvement. Patient will need tracheostomy eventually (2) Aspiration pneumonia: Code(s): J69.0 - Pneumonitis due to inhalation of food and vomit Status: Acute Assessment and Plan: see above (3) Cardiac arrest: Code(s): I46.9 - Cardiac arrest, cause unspecified Status: Acute Assessment and Plan: VFib cardiac arrest likely secondary to STEMI 03/22/22: status post partially successful PCI - continue to hold antiplatelet and due to intra-abdominal hemorrhage as hemoglobin continues to drift down, discussed with Cardiology - continue statin and low-dose ARB -Coreg which was held due to bradycardia will be resumed at low-dose If arrhythmia recurs will start amiodarone infusion, 03/23 Echocardiogram showed: Borderline LV enlargement, moderate LVH. Moderate LV systolic dysfunction, ejection fraction approximately 40%. Diastolic dysfunction is present. Moderate left atrial enlargement. Mild right atrial enlargement. Normal mitral valve structure, mild mitral regurgitation. Mild aortic valve sclerosis, mild aortic stenosis, valve area 1.7 cm2. Mild tricuspid regurgitation, moderate pulmonary hypertension, RVSP 48 mmHg. (4) ST elevation MT (STEMI): Code(s): I21.3 - ST elevation (STEMI) myocardial infarction of unspecified site Status: Acute Assessment and Plan: Status post partially successful PCI to terminal portion of the LAD with confucianist of some flow into the apical portion of the vessel with crossing the lesion with the guidewire and approaching with the balloon (5) Ventricular fibrillation: Code(s): I49.01 - Ventricular fibrillation Status: Acute Assessment and Plan: Likely secondary to ST-elevation MT, patient was initially on amiodarone which has been discontinued (6) Intra abdominal hemorrhage: Code(s): R58 - Hemorrhage, not elsewhere classified Status: Acute Assessment and Plan: patient's chest CT shows small amount of hemoperitoneum with post multiple possible etiologies patient received CPR leading to sternal and rib fractures, patient also received anticoagulation for her PCI, she had is femoral arterial puncture for PCI and also had some bleeding on removal of sheath requiring extended pressure CT abdomen pelvis done on 03/26 did not show any hematoma Plavix has been on hold (patient has allergy to aspirin). Initially it was held due to hematoma but later it was not started as I anticipated the patient may need tracheostomy or PEG tube. Resume Plavix but will hold at this time for anticipated PEG and trach on Tuesday Transfuse if needed Coags are in acceptable range 03/26/2022 CT scan of the abdomen and pelvis Small pleural effusions. 2. Airspace opacities in the lower lobes with volume loss, likely predominantly atelectasis. Pneumonia cannot be excluded. 3. Acute fractures of right fifth and sixth ribs again seen. (7) Rib fracture: Code(s): S22.39XA - Fracture of one rib, unspecified side, initial encounter for closed fracture
[2022-04-02 12:17] LABS: Glucose Point of Care 165 mg/dl (65-105)
--- NOTE | 2022-04-02 12:59 | PCNFU ---
Nutrition Follow-Up Complete: Inadequate Oral intake as related to mechanical ventilation as related to NPO. Goal: Meet estimated nutritional needs Patient is progressing towards goal. We will continue current goal. Pt current nutrition is Vital AF 1.2 at 55 ml/hr over 22 hours. Last recorded weight is 104.7 kg, up from 96.9 kg on admit. Bowel Motility:+BM reported 04/02 Labs Reviewed:Glu 137, BUN 29, Na 135, Alb 3.1,Hct 31.9,Hgb 10.1 Meds Noted:Keppra, Protonix, Coreg, Cozaar, Miralax, Crestor Skin: WNL Additional Notes: Patient remain on mechanical vent and tube feedings of Vital AF 1.2 at 55 ml/hr over hours. Tube feeding at goal rate is providing 1452 kcals/90 gms protein/981 ml water, meeting 96% of caloric needs/100% protein needs. Free water flush 30 ml q 4 hours. Family and [employer] continue discussions regarding plan of care. Agree with diet orders. Will monitor daily in ICU rounds as reassess every Tuesday and Tuesday.
--- NOTE | 2022-04-02 13:20 | WPDGICN ---
Assessment and Plan Assessment and plan (1) Acute respiratory failure: Code(s): J96.00 - Acute respiratory failure, unspecified whether with hypoxia or hypercapnia Status: Acute Assessment and Plan: Patient has suffered cardiopulmonary arrest with subsequent anoxic brain injury and now respiratory ventilator dependent. Peg tube is requested. Will plan for PEG tube on Tuesday early next week Plavix should be on hold until that time if at all possible because of previous bleeding complications. (2) Cardiac arrest: Code(s): I46.9 - Cardiac arrest, cause unspecified Status: Acute (3) Intra abdominal hemorrhage: Code(s): R58 - Hemorrhage, not elsewhere classified Status: Acute (4) Anoxic brain injury: Code(s): G93.1 - Anoxic brain damage, not elsewhere classified Status: Acute GI Consult Note Consult date/time: 04/02/22 13:20 HPI: Lata Warren is a 76 year old female I am asked to see for a PEG tube. Patient has suffered cardiopulmonary arrest as an outpatient. Subsequently has been in the hospital on the ventilator with anoxic brain injury. Hospital course was complicated by hemoperitoneum after placement of a femoral artery catheter. For this reason Plavix is on hold. His anticipated patient will require tracheostomy and PEG tube placement. Review of Systems Review of Systems: ROS unobtainable: Yes unobtainable due to endotracheal tube and unobtainable due to mental status PMFSH Past Medical History Medical History Hypertension Surgical History Surgical History Surgical history unknown Family History Family History Other Unknown family medical history Social History Social History Smoking status: Never smoker Alcohol intake: never Substance use: never Spiritual care concerns: No Meds Home Medications and Allergies Home Medications Medication Instructions Recorded Confirmed Type diltiazem HCl 180 mg PO DAILY 03/23/22 03/23/22 History losartan 100 mg PO DAILY 03/23/22 03/23/22 History metoprolol succinate 100 mg PO DAILY 03/23/22 03/23/22 History Allergies Allergy/AdvReac Type Severity Reaction Status Date / Time aspirin Allergy Hives Verified 03/23/22 00:29 ibuprofen Allergy Hives Verified 03/23/22 00:29 Penicillins Allergy Unknown Verified 03/23/22 00:29 Vital Signs Vital Signs - 24 hr 04/01/22 13:53 04/01/22 14:00 04/01/22 17:20 Temperature Pulse Rate 78 82 82 Respiratory Rate Blood Pressure 156/67 H Pulse Oximetry 98 100 98 04/01/22 18:00 04/01/22 20:00 04/01/22 20:06 Temperature 98.5 F Pulse Rate 64 76 82 Respiratory Rate 18 Blood Pressure 122/92 H 119/78 Pulse Oximetry 96 96 99 04/01/22 21:07 04/01/22 22:00 04/01/22 23:25 Temperature Pulse Rate 72 78 81 Respiratory Rate 16 Blood Pressure 128/81 Pulse Oximetry 100 99 04/02/22 00:00 04/02/22 02:00 04/02/22 04:00 Temperature 97.7 F 97.5 F L Pulse Rate 75 88 70 Respiratory Rate 22 H 20 20 Blood Pressure 121/74 149/97 H 109/68 Pulse Oximetry 98 97 98 04/02/22 05:08 04/02/22 05:53 04/02/22 07:56 Temperature Pulse Rate 96 84 86 Respiratory Rate 25 H Blood Pressure 141/95 H Pulse Oximetry 98 97 96 04/02/22 08:00 04/02/22 10:00 04/02/22 10:53 Temperature 98.9 F Pulse Rate 80 71 77 Respiratory Rate 28 H 20 Blood Pressure 156/95 H 139/98 H Pulse Oximetry 95 100 97 04/02/22 12:00 Temperature 99.0 F Pulse Rate 71 Respiratory Rate 27 H Blood Pressure 148/85 H Pulse Oximetry 96 Exam Narrative: On physical exam patient remains on the ventilator. HEENT exam reveals no icterus. Lungs reveal few rhonchi. Heart without murmur. Abdomen is obese bowel sounds are present soft no obvious deepak
--- NOTE | 2022-04-02 13:29 | PM.PNCARD ---
Progress Note: A&P Assessment and Plan (1) ST elevation SC (STEMI): Code(s): I21.3 - ST elevation (STEMI) myocardial infarction of unspecified site Status: Acute Assessment and Plan: Taken to the cardiac computer lab para professional emergently last evening following out of hospital cardiac arrest, VF, and EKG with evidence of acute anterior SC. She was found to have a 100% acute occlusion of the distal LAD. Efforts to revascularize this were not successful and the case ended without intervention to the LAD lesion and she was transferred to the ICU in stable but critical condition. Echo showed mildly reduced systolic function with EF 40%. Plavix has been restarted. No ASA d/t allergy (2) Cardiac arrest: Code(s): I46.9 - Cardiac arrest, cause unspecified Status: Acute Assessment and Plan: Witnessed cardiac arrest at home. Did receive CPR from a bystander prior to EMS arrival. Found to be in VF upon arrival to the emergency department. (3) Intra abdominal hemorrhage: Code(s): R58 - Hemorrhage, not elsewhere classified Status: Acute Assessment and Plan: Chest CT shows small amount of hemoperitoneum. Probably secondary to CPR, anticoagulation for PCI. H&H stable. Plavix has been restarted at this point/ (4) Anoxic brain injury: Code(s): G93.1 - Anoxic brain damage, not elsewhere classified Status: Acute Assessment and Plan: Out of hospital cardiac arrest with unknown down time, medical record indicates that she received CPR from a bystander at home prior to EMS arrival. She did achieve ROSC after 2 rounds of epinephrine/ACLS protocol. Unfortunately she is exhibiting some signs of anoxic brain injury including myoclonic jerking and no purposeful movements with attempts to withdraw sedation. EEG results are pending. Management per critical care. (5) Paroxysmal atrial fibrillation: Code(s): I48.0 - Paroxysmal atrial fibrillation Status: Acute Assessment and Plan: Remains in controlled atrial fibrillation. Hold off on anticoagulation for now given intra-abdominal hemorrhage. H&H stable. May resume if no other contraindications. Subjective Date/time seen: 04/02/22 13:29 Interval history: 76yo female with HTN here for [id number] cardiac VFib arrest. 04/01- remains intubated, not responsive. Family is thinking about tracheostomy and PEG tube. Date of service 04/02/2022: No acute events overnight. Stable. Remains intubated and unresponsive. Review of Systems Review of Systems: ROS unobtainable: Yes unobtainable due to endotracheal tube and unobtainable due to medical condition Exam Const: General: comfortable; No alert, awake or in distress Orientation/consciousness: No patient oriented x3 Other: elderly female unresponsive, intubated on mechanical ventilatory support HENMT: Head: normal to inspection Mouth: Yes moist mucous membranes Other: Tongue swollen and ecchymotic Eyes: General: appearance normal, both eyes and all related structures Sclera: sclerae normal Neck: Neck: supple Other: Triple lumen central line RIJ Chest: Chest palpation & inspection: normal inspection of the chest Resp: Effort & Inspection: other (mechanically ventilated ) Auscultation: clear to auscultation bilaterally (only able to auscultate anteriorally ) Other: Coarse breath sounds bilaterally Cardio: Rate: regular rate Rhythm: abnormal rhythm irregularly irregular Heart sounds: no murmurs Other: GI: Inspection: abdominal wall ecchymosis Auscultation: normal bowel sounds Urinary Catheter: Urinary Catheter: patent and draining Skin: General skin exam: normal color Other: Groin arterial insertion site free from bleeding, hematoma Neuro: General: No patient oriented x3 Speech: No normal speech Other: Intubated Extrem: General: normal to inspection Psych: Appearance: grossly abnormal Mental Status: mental status grossly abnormal Obje
[2022-04-02 16:16] LABS: Glucose Point of Care 148 mg/dl (65-105)
--- NOTE | 2022-04-02 17:36 | WPDCN ---
Assessment and Plan Assessment and plan (1) Respiratory failure: Code(s): J96.90 - Respiratory failure, unspecified, unspecified whether with hypoxia or hypercapnia Status: Acute Assessment and Plan: Plan for tracheostomy, earliest ENT can perform is next week. Will forward to office engineer, will have a better plan next Tuesday when tracheostomy can be performed. Please obtain consetn. [facility] Data of Consult Date/Time: 04/02/22 17:36 Requesting Physician: Jackson Palma MD Primary Care Provider: Maninder Gonzalez, MD Consult Narrative Narrative: Lata Warren is a 76 year old female with respiratory insufficiency. ENT consulted for tracheostomy. PEEP 5 fio2 25 percent. Review of Systems Review of Systems: ROS unobtainable: Yes unobtainable due to endotracheal tube PMFSH Past Medical History Medical History Hypertension Surgical History Surgical History Surgical history unknown Family History Family History Other Unknown family medical history Social History Social History Smoking status: Never smoker Alcohol intake: never Substance use: never Spiritual care concerns: No Meds Home Medications and Allergies Home Medications Medication Instructions Recorded Confirmed Type diltiazem HCl 180 mg PO DAILY 03/23/22 03/23/22 History losartan 100 mg PO DAILY 03/23/22 03/23/22 History metoprolol succinate 100 mg PO DAILY 03/23/22 03/23/22 History Allergies Allergy/AdvReac Type Severity Reaction Status Date / Time aspirin Allergy Hives Verified 03/23/22 00:29 ibuprofen Allergy Hives Verified 03/23/22 00:29 Penicillins Allergy Unknown Verified 03/23/22 00:29 Vital Signs Vital Signs - 24 hr 04/01/22 18:00 04/01/22 20:00 04/01/22 20:06 Temperature 36.9 C Pulse Rate 64 76 82 Respiratory Rate 18 Blood Pressure 122/92 H 119/78 Pulse Oximetry 96 96 99 04/01/22 21:07 04/01/22 22:00 04/01/22 23:25 Temperature Pulse Rate 72 78 81 Respiratory Rate 16 Blood Pressure 128/81 Pulse Oximetry 100 99 04/02/22 00:00 04/02/22 02:00 04/02/22 04:00 Temperature 36.5 C 36.4 C L Pulse Rate 75 88 70 Respiratory Rate 22 H 20 20 Blood Pressure 121/74 149/97 H 109/68 Pulse Oximetry 98 97 98 04/02/22 05:08 04/02/22 05:53 04/02/22 07:56 Temperature Pulse Rate 96 84 86 Respiratory Rate 25 H Blood Pressure 141/95 H Pulse Oximetry 98 97 96 04/02/22 08:00 04/02/22 10:00 04/02/22 10:53 Temperature 37.2 C Pulse Rate 80 71 77 Respiratory Rate 28 H 20 Blood Pressure 156/95 H 139/98 H Pulse Oximetry 95 100 97 04/02/22 12:00 04/02/22 14:00 04/02/22 14:14 Temperature 37.2 C Pulse Rate 71 69 83 Respiratory Rate 27 H 25 H Blood Pressure 148/85 H 151/87 H Pulse Oximetry 96 96 97 04/02/22 16:00 04/02/22 17:11 04/02/22 17:27 Temperature 37.2 C Pulse Rate 60 63 66 Respiratory Rate 21 H 22 H Blood Pressure 152/86 H 145/95 H Pulse Oximetry 95 96 97 Exam HENMT: Other: Thick neck, palpable landmarks, edematous tongue Results Labs CBC & Chem 7: 04/02/22 06:18 04/02/22 06:17 Labs: Short CBC 04/02/22 Range/Units 06:18 WBC 15.4 H (4.5-10.0) K/mm3 Hgb 10.1 L (12.0-15.0) g/dL Hct 31.9 L (37.0-47.0) % Plt Count 376 H (150-375) k/mm3 BMP 04/02/22 06:17 Sodium 135 L Potassium 4.0 Chloride 101 Carbon Dioxide 27 BUN 29 H Creatinine 0.70 Glucose 137 H Calcium 7.8 L Liver Function 04/02/22 Range/Units 06:17 Total Bilirubin 0.2 (0.2-1.3) mg/dL AST 98 H (14-36) U/L ALT 63 H (6-35) U/L Alkaline Phosphatase 89 (38-126) U/L Albumin 3.1 L (3.5-5.1) g/dL
[2022-04-02 21:21] LABS: Glucose Point of Care 133 mg/dl (65-105)
[2022-04-03] VITALS (28 sets, daily range): BP systolic 110–151; BP diastolic 65–93; PULSE 60–103; RESP 17–25; TEMP 36.6–37.4; O2SAT 94–98
[2022-04-03 00:31] LABS: Glucose Point of Care 147 mg/dl (65-105)
[2022-04-03] MEDS: METOCLOPRAMIDE HCL 10 MG TABLET FEED TUBE ×4 (00:31→18:45)
[2022-04-03] MEDS: levETIRAcetam 1000MG/NACL100ML 1,000 MG/100 ML BAG 400 MG IVPB ×3 (02:32→18:45)
[2022-04-03 06:03] LABS: Hematocrit 30.3 % (37.0-47.0); Hemoglobin 9.5 g/dL (12.0-15.0); Mean Corpuscular HGB Conc 31.4 g/dl (32-36); Mean Corpuscular Hemoglobin 21.2 pg (26-34); Mean Corpuscular Volume 67.6 fl (80-100); Mean Platelet Volume 9.4 fl (7.4-10.4); Platelet Count Result 372 k/mm3 (150-375); Red Blood Count 4.48 M/mm3 (4.2-5.4); Red Cell Distribution Width 15.5 % (11.5-14.5); White Blood Count 15.4 K/mm3 (4.5-10.0)
[2022-04-03 06:17] LABS: Alanine Aminotransferase 71 U/L (6-35); Alkaline Phosphatase 85 U/L (38-126); Anion Gap 8 mmol/L (8-16); Aspartate Amino Transferase 90 U/L (14-36); Bilirubin,Total 0.3 mg/dL (0.2-1.3); Blood Urea Nitrogen 29 mg/dL (7-17); Calcium 7.9 mg/dL (8.4-10.2); Carbon Dioxide 26 mmol/L (22-30); Chloride 102 mmol/L (98-107); Estimated CRCL calculation 68 ml/min; Estimated Glomerular Filt Rate > 60; Glucose 128 mg/dL (65-110); Magnesium 2.2 mg/dL (1.6-2.3); Sodium 136 mmol/L (137-145)
[2022-04-03] MEDS: CENTRAL LINE FLUSH 10 ML IV PUSH ×3 (06:36→20:21)
--- NOTE | 2022-04-03 08:16 | WPDINTPN ---
Progress Note: A&P Assessment and Plan (1) Acute respiratory failure: Code(s): J96.00 - Acute respiratory failure, unspecified whether with hypoxia or hypercapnia Status: Acute Assessment and Plan: Acute Respiratory failure secondary to cardiac arrest, possible aspiration pneumonia Continue full mechanical ventilation support to prevent hypoxemia/hypercarbia and end organ damage. ABG, Chest CT and PCXR reviewed, PEEP of 5 and FiO2 of 25% Off Versed Continue Keppra and valproic acid Completed course of aztreonam (03/23) and vancomycin (03/26) for pneumonia on 03/30/202203/23 Urine and Blood cultures are negative Sputum cultures grew yeast which is likely colonization Procalcitonin level 0.6 Weaning will depend on no neurological improvement. Patient is scheduled for tracheostomy early next week (2) Aspiration pneumonia: Code(s): J69.0 - Pneumonitis due to inhalation of food and vomit Status: Acute Assessment and Plan: see above (3) Cardiac arrest: Code(s): I46.9 - Cardiac arrest, cause unspecified Status: Acute Assessment and Plan: VFib cardiac arrest likely secondary to STEMI 03/22/22: status post partially successful PCI - continue to hold antiplatelet and due to intra-abdominal hemorrhage as hemoglobin continues to drift down, discussed with Cardiology - continue statin and low-dose ARB -Coreg which was held due to bradycardia will be resumed at low-dose If arrhythmia recurs will start amiodarone infusion, 03/23 Echocardiogram showed: Borderline LV enlargement, moderate LVH. Moderate LV systolic dysfunction, ejection fraction approximately 40%. Diastolic dysfunction is present. Moderate left atrial enlargement. Mild right atrial enlargement. Normal mitral valve structure, mild mitral regurgitation. Mild aortic valve sclerosis, mild aortic stenosis, valve area 1.7 cm2. Mild tricuspid regurgitation, moderate pulmonary hypertension, RVSP 48 mmHg. (4) ST elevation [place] (STEMI): Code(s): I21.3 - ST elevation (STEMI) myocardial infarction of unspecified site Status: Acute Assessment and Plan: Status post partially successful PCI to terminal portion of the LAD with bahai of some flow into the apical portion of the vessel with crossing the lesion with the guidewire and approaching with the balloon (5) Ventricular fibrillation: Code(s): I49.01 - Ventricular fibrillation Status: Acute Assessment and Plan: Likely secondary to ST-elevation ND, patient was initially on amiodarone which has been discontinued (6) Intra abdominal hemorrhage: Code(s): R58 - Hemorrhage, not elsewhere classified Status: Acute Assessment and Plan: patient's chest CT shows small amount of hemoperitoneum with post multiple possible etiologies patient received CPR leading to sternal and rib fractures, patient also received anticoagulation for her PCI, she had is femoral arterial puncture for PCI and also had some bleeding on removal of sheath requiring extended pressure CT abdomen pelvis done on 03/26 did not show any hematoma Plavix has been on hold (patient has allergy to aspirin). Initially it was held due to hematoma but later it was not started as I anticipated the patient may need tracheostomy or PEG tube. Resumed Plavix but now on hold at this time for anticipated PEG and trach on Tuesday Transfuse if needed Coags are in acceptable range 03/26/2022 CT scan of the abdomen and pelvis Small pleural effusions. 2. Airspace opacities in the lower lobes with volume loss, likely predominantly atelectasis. Pneumonia cannot be excluded. 3. Acute fractures of right fifth and sixth ribs again seen. (7) Rib fracture: Code(s): S22.39XA - Fracture of one rib, unspecified side, initial encounter for closed fracture Status: Acute Assessment and Plan: patient sustained sternal and right 5th and 6th rib fractures which are likely from CPR
[2022-04-03 08:54] LABS: Glucose Point of Care 134 mg/dl (65-105)
[2022-04-03] MEDS: PANTOPRAZOLE SODIUM IV 40 MG VIAL IV PUSH (08:56)
[2022-04-03] MEDS: ENOXAPARIN 40 MG/0.4 ML SYRINGE SUB-Q (08:56)
[2022-04-03] MEDS: MINERAL OIL/WHITE PETROLATUM OINTMENT 1 APPLIC EACH EYE ×2 (08:56→20:21)
[2022-04-03] MEDS: polyethylene glycoL 3350 17 GM POWD.PACK PO (08:56)
[2022-04-03] MEDS: carvediloL 3.125 MG TABLET PO ×2 (08:56→20:20)
[2022-04-03] MEDS: ROSUVASTATIN 10 MG TABLET 20 MG PO (08:56)
[2022-04-03] MEDS: LOSARTAN POTASSIUM 12.5 MG TABLET PO (08:56)
--- NOTE | 2022-04-03 09:23 | PM.PNCARD ---
Progress Note: A&P Assessment and Plan (1) ST elevation PR (STEMI): Code(s): I21.3 - ST elevation (STEMI) myocardial infarction of unspecified site Status: Acute Assessment and Plan: Taken to the cardiac label printer emergently last evening following out of hospital cardiac arrest, VF, and EKG with evidence of acute anterior PR. She was found to have a 100% acute occlusion of the distal LAD. Efforts to revascularize this were not successful and the case ended without intervention to the LAD lesion and she was transferred to the ICU in stable but critical condition. Echo showed mildly reduced systolic function with EF 40%. Plavix has been restarted. No ASA d/t allergy (2) Cardiac arrest: Code(s): I46.9 - Cardiac arrest, cause unspecified Status: Acute Assessment and Plan: Witnessed cardiac arrest at home. Did receive CPR from a bystander prior to EMS arrival. Found to be in VF upon arrival to the emergency department. (3) Intra abdominal hemorrhage: Code(s): R58 - Hemorrhage, not elsewhere classified Status: Acute Assessment and Plan: Chest CT shows small amount of hemoperitoneum. Probably secondary to CPR, anticoagulation for PCI. H&H stable. Plavix has been restarted at this point/ (4) Anoxic brain injury: Code(s): G93.1 - Anoxic brain damage, not elsewhere classified Status: Acute Assessment and Plan: Out of hospital cardiac arrest with unknown down time, medical record indicates that she received CPR from a bystander at home prior to EMS arrival. She did achieve ROSC after 2 rounds of epinephrine/ACLS protocol. Unfortunately she is exhibiting some signs of anoxic brain injury including myoclonic jerking and no purposeful movements with attempts to withdraw sedation. EEG results are pending. Management per critical care. (5) Paroxysmal atrial fibrillation: Code(s): I48.0 - Paroxysmal atrial fibrillation Status: Acute Assessment and Plan: Remains in controlled atrial fibrillation. Hold off on anticoagulation for now given intra-abdominal hemorrhage. H&H stable. May resume if no other contraindications. Subjective Date/time seen: 04/03/22 09:23 Interval history: 76yo female with HTN here for [id number] cardiac VFib arrest. 04/01- remains intubated, not responsive. Family is thinking about tracheostomy and PEG tube. Date of service 04/02/2022: No acute events overnight. Stable. Remains intubated and unresponsive. Date of service 04/03/2022: No changes. Heart rate reasonably controlled Review of Systems Review of Systems: ROS unobtainable: Yes unobtainable due to endotracheal tube and unobtainable due to medical condition Exam Const: General: comfortable; No alert, awake or in distress Orientation/consciousness: No patient oriented x3 Other: elderly female unresponsive, intubated on mechanical ventilatory support HENMT: Head: normal to inspection Mouth: Yes moist mucous membranes Other: Tongue swollen and ecchymotic Eyes: General: appearance normal, both eyes and all related structures Sclera: sclerae normal Neck: Neck: supple Other: Triple lumen central line RIJ Chest: Chest palpation & inspection: normal inspection of the chest Resp: Effort & Inspection: other (mechanically ventilated ) Auscultation: clear to auscultation bilaterally (only able to auscultate anteriorally ) Other: Coarse breath sounds bilaterally Cardio: Rate: regular rate Rhythm: abnormal rhythm irregularly irregular Heart sounds: no murmurs Other: GI: Inspection: abdominal wall ecchymosis Auscultation: normal bowel sounds Urinary Catheter: Urinary Catheter: patent and draining Skin: General skin exam: normal color Other: Groin arterial insertion site free from bleeding, hematoma Neuro: General: No patient oriented x3 Speech: No normal speech Motor exam (neuro): Motor abnormalites present myoclonus Other: Intubated
--- NOTE | 2022-04-03 09:42 | PM.IMPN ---
Progress Note: A&P Assessment and Plan (1) Acute respiratory failure: Code(s): J96.00 - Acute respiratory failure, unspecified whether with hypoxia or hypercapnia Status: Acute Assessment and Plan: Acute Respiratory failure secondary to cardiac arrest, possible aspiration pneumonia Continue full mechanical ventilation support to prevent hypoxemia/hypercarbia and end organ damage. ABG, Chest CT and PCXR reviewed, PEEP of 5 and FiO2 of 25% Off Versed Continue Keppra and valproic acid Completed course of aztreonam (03/23) and vancomycin (03/26) for pneumonia on 03/30/202203/23 Urine and Blood cultures are negative Sputum cultures grew yeast which is likely colonization Procalcitonin level 0.6 Weaning will depend on no neurological improvement. Patient is scheduled for tracheostomy early next week (2) Aspiration pneumonia: Code(s): J69.0 - Pneumonitis due to inhalation of food and vomit Status: Acute Assessment and Plan: see above (3) Cardiac arrest: Code(s): I46.9 - Cardiac arrest, cause unspecified Status: Acute Assessment and Plan: VFib cardiac arrest likely secondary to STEMI 03/22/22: status post partially successful PCI - continue to hold antiplatelet and due to intra-abdominal hemorrhage as hemoglobin continues to drift down, discussed with Cardiology - continue statin and low-dose ARB -Coreg which was held due to bradycardia will be resumed at low-dose If arrhythmia recurs will start amiodarone infusion, 03/23 Echocardiogram showed: Borderline LV enlargement, moderate LVH. Moderate LV systolic dysfunction, ejection fraction approximately 40%. Diastolic dysfunction is present. Moderate left atrial enlargement. Mild right atrial enlargement. Normal mitral valve structure, mild mitral regurgitation. Mild aortic valve sclerosis, mild aortic stenosis, valve area 1.7 cm2. Mild tricuspid regurgitation, moderate pulmonary hypertension, RVSP 48 mmHg. (4) ST elevation [place] (STEMI): Code(s): I21.3 - ST elevation (STEMI) myocardial infarction of unspecified site Status: Acute Assessment and Plan: Status post partially successful PCI to terminal portion of the LAD with quaker of some flow into the apical portion of the vessel with crossing the lesion with the guidewire and approaching with the balloon (5) Ventricular fibrillation: Code(s): I49.01 - Ventricular fibrillation Status: Acute Assessment and Plan: Likely secondary to ST-elevation [place], patient was initially on amiodarone which has been discontinued (6) Intra abdominal hemorrhage: Code(s): R58 - Hemorrhage, not elsewhere classified Status: Acute Assessment and Plan: patient's chest CT shows small amount of hemoperitoneum with post multiple possible etiologies patient received CPR leading to sternal and rib fractures, patient also received anticoagulation for her PCI, she had is femoral arterial puncture for PCI and also had some bleeding on removal of sheath requiring extended pressure CT abdomen pelvis done on 03/26 did not show any hematoma Plavix has been on hold (patient has allergy to aspirin). Initially it was held due to hematoma but later it was not started as I anticipated the patient may need tracheostomy or PEG tube. Resumed Plavix but now on hold at this time for anticipated PEG and trach on 04/05. Transfuse if needed Coags are in acceptable range 03/26/2022 CT scan of the abdomen and pelvis Small pleural effusions. 2. Airspace opacities in the lower lobes with volume loss, likely predominantly atelectasis. Pneumonia cannot be excluded. 3. Acute fractures of right fifth and sixth ribs again seen. (7) Rib fracture: Code(s): S22.39XA - Fracture of one rib, unspecified side, initial encounter for closed fracture Status: Acute Assessment and Plan: patient sustained sternal and right 5th and 6th rib fractures which are likely from CPR
--- NOTE | 2022-04-03 11:15 | PC.NURSE ---
Raised, red circles noted to patient's bilateral legs, arms, and to chest. Tongue edema had been noted prior. Dr. Cornejo notified. Orders received for IV benadryl and solumedrol. will continue to monitor.
[2022-04-03] MEDS: diphenhydrAMINE HCl INJ 50 MG/ML VIAL 25 MG IV PUSH (11:20)
[2022-04-03] MEDS: methylPREDNISolone SOD SUCC 125 MG VIAL 80 MG IV PUSH (11:20)
[2022-04-03 12:05] LABS: Glucose Point of Care 121 mg/dl (65-105)
[2022-04-03 18:14] LABS: Glucose Point of Care 160 mg/dl (65-105)
[2022-04-04] VITALS (27 sets, daily range): BP systolic 100–155; BP diastolic 58–94; PULSE 56–87; RESP 16–24; TEMP 37–37.5; O2SAT 95–100
[2022-04-04 01:26] LABS: Glucose Point of Care 149 mg/dl (65-105)
[2022-04-04] MEDS: METOCLOPRAMIDE HCL 10 MG TABLET FEED TUBE ×3 (01:28→19:17)
[2022-04-04] MEDS: levETIRAcetam 1000MG/NACL100ML 1,000 MG/100 ML BAG 400 MG IVPB ×3 (03:27→19:13)
[2022-04-04] MEDS: CENTRAL LINE FLUSH 10 ML IV PUSH ×3 (05:35→20:39)
[2022-04-04 06:30] LABS: Hematocrit 29.6 % (37.0-47.0); Hemoglobin 9.5 g/dL (12.0-15.0); Mean Corpuscular HGB Conc 32.1 g/dl (32-36); Mean Corpuscular Hemoglobin 21.2 pg (26-34); Mean Corpuscular Volume 66.1 fl (80-100); Mean Platelet Volume 8.7 fl (7.4-10.4); Platelet Count Result 369 k/mm3 (150-375); Red Blood Count 4.48 M/mm3 (4.2-5.4); Red Cell Distribution Width 15.3 % (11.5-14.5); White Blood Count 16.2 K/mm3 (4.5-10.0)
[2022-04-04 06:53] LABS: Alanine Aminotransferase 106 U/L (6-35); Albumin Level 2.9 g/dL (3.5-5.1); Alkaline Phosphatase 88 U/L (38-126); Anion Gap 4 mmol/L (8-16); Aspartate Amino Transferase 134 U/L (14-36); Bilirubin,Total 0.2 mg/dL (0.2-1.3); Blood Urea Nitrogen 37 mg/dL (7-17); Calcium 8.1 mg/dL (8.4-10.2); Carbon Dioxide 30 mmol/L (22-30); Chloride 101 mmol/L (98-107); Estimated CRCL calculation 68 ml/min; Estimated Glomerular Filt Rate > 60; Glucose 133 mg/dL (65-110); Magnesium 2.2 mg/dL (1.6-2.3); Sodium 135 mmol/L (137-145)
--- NOTE | 2022-04-04 08:27 | WPDINTPN ---
Progress Note: A&P Assessment and Plan (1) Acute respiratory failure: Code(s): J96.00 - Acute respiratory failure, unspecified whether with hypoxia or hypercapnia Status: Acute Assessment and Plan: Acute Respiratory failure secondary to cardiac arrest, possible aspiration pneumonia Continue full mechanical ventilation support to prevent hypoxemia/hypercarbia and end organ damage. ABG, Chest CT and PCXR reviewed, PEEP of 5 and FiO2 of 25% Off Versed Continue Keppra and valproic acid Completed course of aztreonam (03/23) and vancomycin (03/26) for pneumonia on 03/30/202203/23 Urine and Blood cultures are negative Sputum cultures grew yeast which is likely colonization Procalcitonin level 0.6 Patient is scheduled for tracheostomy early next week (2) Aspiration pneumonia: Code(s): J69.0 - Pneumonitis due to inhalation of food and vomit Status: Acute Assessment and Plan: see above (3) Cardiac arrest: Code(s): I46.9 - Cardiac arrest, cause unspecified Status: Acute Assessment and Plan: VFib cardiac arrest likely secondary to STEMI 03/22/22: status post partially successful PCI - continue to hold antiplatelet and due to intra-abdominal hemorrhage as hemoglobin continues to drift down, discussed with Cardiology - continue statin and low-dose ARB -Coreg which was held due to bradycardia will be resumed at low-dose If arrhythmia recurs will start amiodarone infusion, 03/23 Echocardiogram showed: Borderline LV enlargement, moderate LVH. Moderate LV systolic dysfunction, ejection fraction approximately 40%. Diastolic dysfunction is present. Moderate left atrial enlargement. Mild right atrial enlargement. Normal mitral valve structure, mild mitral regurgitation. Mild aortic valve sclerosis, mild aortic stenosis, valve area 1.7 cm2. Mild tricuspid regurgitation, moderate pulmonary hypertension, RVSP 48 mmHg. (4) ST elevation [place] (STEMI): Code(s): I21.3 - ST elevation (STEMI) myocardial infarction of unspecified site Status: Acute Assessment and Plan: Status post partially successful PCI to terminal portion of the LAD with sabianism of some flow into the apical portion of the vessel with crossing the lesion with the guidewire and approaching with the balloon (5) Ventricular fibrillation: Code(s): I49.01 - Ventricular fibrillation Status: Acute Assessment and Plan: Likely secondary to ST-elevation [place], patient was initially on amiodarone which has been discontinued (6) Intra abdominal hemorrhage: Code(s): R58 - Hemorrhage, not elsewhere classified Status: Acute Assessment and Plan: patient's chest CT shows small amount of hemoperitoneum with post multiple possible etiologies patient received CPR leading to sternal and rib fractures, patient also received anticoagulation for her PCI, she had is femoral arterial puncture for PCI and also had some bleeding on removal of sheath requiring extended pressure CT abdomen pelvis done on 03/26 did not show any hematoma Plavix has been on hold (patient has allergy to aspirin). Initially it was held due to hematoma but later it was not started as I anticipated the patient may need tracheostomy or PEG tube. Resumed Plavix but now on hold at this time for anticipated PEG and trach on Tuesday Transfuse if needed Coags are in acceptable range 03/26/2022 CT scan of the abdomen and pelvis Small pleural effusions. 2. Airspace opacities in the lower lobes with volume loss, likely predominantly atelectasis. Pneumonia cannot be excluded. 3. Acute fractures of right fifth and sixth ribs again seen. (7) Rib fracture: Code(s): S22.39XA - Fracture of one rib, unspecified side, initial encounter for closed fracture Status: Acute Assessment and Plan: patient sustained sternal and right 5th and 6th rib fractures which are likely from CPR no flail chest conservative management (8) Acute k
--- NOTE | 2022-04-04 08:48 | PM.IMPN ---
Subjective Date/time seen: 04/04/22 08:49 Objective Data Vital Signs Vital Signs: Vital Signs - 24 hr 04/03/22 08:56 04/03/22 10:00 04/03/22 10:41 Temperature Pulse Rate 83 98 66 Respiratory Rate 18 Blood Pressure 140/71 Pulse Oximetry 98 96 04/03/22 12:00 04/03/22 13:10 04/03/22 14:09 Temperature 97.8 F Pulse Rate 76 71 93 Respiratory Rate 21 H 24 H 22 H Blood Pressure 133/93 H Pulse Oximetry 96 97 96 04/03/22 14:25 04/03/22 16:00 04/03/22 16:18 Temperature Pulse Rate 82 90 76 Respiratory Rate 20 20 Blood Pressure 114/65 Pulse Oximetry 97 98 98 04/03/22 16:42 04/03/22 17:23 04/03/22 18:00 Temperature 98.9 F Pulse Rate 79 70 Respiratory Rate 20 Blood Pressure 110/68 Pulse Oximetry 96 97 04/03/22 20:00 04/03/22 20:15 04/03/22 20:20 Temperature 99 F Pulse Rate 73 73 75 Respiratory Rate 17 Blood Pressure 131/90 Pulse Oximetry 95 95 04/03/22 21:59 04/03/22 23:23 04/04/22 00:00 Temperature 98.8 F Pulse Rate 71 71 64 Respiratory Rate 17 18 Blood Pressure 131/90 124/67 Pulse Oximetry 95 96 95 04/04/22 01:32 04/04/22 02:10 04/04/22 03:48 Temperature Pulse Rate 64 72 77 Respiratory Rate 19 16 Blood Pressure 155/82 H Pulse Oximetry 96 96 98 04/04/22 03:56 04/04/22 04:00 04/04/22 05:05 Temperature 99.5 F Pulse Rate 59 L 67 73 Respiratory Rate 19 Blood Pressure 121/58 L Pulse Oximetry 98 97 04/04/22 05:39 04/04/22 07:36 04/04/22 08:00 Temperature 98.6 F Pulse Rate 71 84 56 L Respiratory Rate 17 19 Blood Pressure 119/67 128/94 H Pulse Oximetry 98 98 100 Intake/Output Intake/Output: Intake & Output 04/01/22 04/02/22 04/03/22 04/04/22 23:59 23:59 23:59 23:59 Intake Total 1332 2810 1989 870 Output Total 860 1000 900 850 Balance 472 1810 1089 20 Meds/Results Medications: Active Medications Generic Name Dose Route Start Last Admin Trade Name Freq PRN Reason Stop Dose Admin Acetaminophen 650 mg 03/25/22 19:56 03/25/22 20:09 Acetaminophen Elixir 325 Mg/10.15 Ml Udc FEED TUBE 650 mg Q6H PRN Administration Mild Pain (1-3) or Fever Alteplase, Recombinant 2 mg 03/31/22 17:42 03/31/22 20:25 Alteplase 2 Mg Vial (Cathflo) IV PUSH 2 mg ONCE PRN Administration Line Occlusion Bisacodyl 10 mg 03/30/22 08:10 03/30/22 11:34 Bisacodyl 10 Mg Suppository RECTAL 10 mg QAM PRN Administration Constipation Carvedilol 3.125 mg 03/30/22 09:00 04/03/22 20:20 Carvedilol 3.125 Mg Tablet PO 3.125 mg Q12HR TUCKER Administration Clopidogrel Bisulfate 75 mg 04/01/22 13:20 04/02/22 07:57 Clopidogrel Bisulfate 75 Mg Tablet PO Not Given QAM TUCKER Dextrose 12.5 gm 03/23/22 02:01 03/23/22 14:36 Dextrose 50% 25 Gm/50 Ml Syringe IV PUSH 12.5 gm PRN PRN Administration Hypoglycemia Protocol Enoxaparin Sodium 40 mg 04/01/22 09:00 04/03/22 08:56 Enoxaparin 40 Mg/0.4 Ml Syringe SUB-Q 40 mg DAILY TUCKER Administration Glucagon 1 mg 03/23/22 02:01 Glucagon For Inj 1 Mg Vial IM PRN PRN Hypoglycemia Protocol Glucose 15 gm 03/23/22 02:01 Glucose Oral Gel 15 Gm Of Glucse In 37.5 Gm Tube PO PRN PRN Hypoglycemia Protocol Dextrose 1,000 mls @ 100 mls/hr 03/23/22 02:01 Dextrose 5% 1,000 Ml IVPB PRN PRN Hypoglycemia Protocol Levetiracetam 1,000 mg in 100 mls @ 400 mls/hr 03/27/22 10:00 04/04/22 03:59 Keppra Iv IVPB Infused Q8H TUCKER Infusion Valproate Sodium 1,000 mg/ 110 mls @ 100 mls/hr 03/29/22 18:00 04/04/22 05:00 Dextrose IVPB Infused Q8H [facility] Infusion Insulin Aspart 3 - 6 units 04/03/22 12:00 04/04/22 06:57 Insulin Aspart (*Bkc) 100 Units/Ml SUB-Q Not Given Q6HR [facility] Protocol Labetalol HCl 20 mg 03/23/22 02:35 Labetalol Hcl Inj 100 Mg/20 Ml Vial IV PUSH Q4H PRN SBP>160 Lorazepam 2 mg 03/25/22 10:01 03/27/22 18:20 Lorazepam Inj
[2022-04-04] MEDS: PANTOPRAZOLE SODIUM IV 40 MG VIAL IV PUSH (08:54)
[2022-04-04] MEDS: MINERAL OIL/WHITE PETROLATUM OINTMENT 1 APPLIC EACH EYE ×2 (09:01→20:39)
--- NOTE | 2022-04-04 09:40 | PM.PNCARD ---
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 She was found to have a 100% acute occlusion of the distal LAD. Efforts to revascularize this were not successful and the case ended without intervention to the LAD lesion and she was transferred to the ICU in stable but critical condition. Echo showed mildly reduced systolic function with EF 40%. Plavix has been restarted. No ASA d/t allergy (2) Cardiac arrest: Code(s): I46.9 - Cardiac arrest, cause unspecified Status: Acute Assessment and Plan: Witnessed cardiac arrest at home. Did receive CPR from a bystander prior to EMS arrival. Found to be in VF upon arrival to the emergency department. (3) Intra abdominal hemorrhage: Code(s): R58 - Hemorrhage, not elsewhere classified Status: Acute Assessment and Plan: Chest CT shows small amount of hemoperitoneum. Probably secondary to CPR, anticoagulation for PCI. H&H stable. Plavix has been restarted at this point/ (4) Anoxic brain injury: Code(s): G93.1 - Anoxic brain damage, not elsewhere classified Status: Acute Assessment and Plan: Out of hospital cardiac arrest with unknown down time, medical record indicates that she received CPR from a bystander at home prior to EMS arrival. She did achieve ROSC after 2 rounds of epinephrine/ACLS protocol. Unfortunately she is exhibiting some signs of anoxic brain injury including myoclonic jerking and no purposeful movements with attempts to withdraw sedation. EEG results are pending. Management per critical care. (5) Paroxysmal atrial fibrillation: Code(s): I48.0 - Paroxysmal atrial fibrillation Status: Acute Assessment and Plan: Remains in controlled atrial fibrillation. Hold off on anticoagulation for now given intra-abdominal hemorrhage. H&H stable. May resume if no other contraindications. No changes Subjective Date/time seen: 04/04/22 09:40 Interval history: 76yo female with HTN here for [id number] cardiac VFib arrest. 04/01- remains intubated, not responsive. Family is thinking about tracheostomy and PEG tube. Date of service 04/02/2022: No acute events overnight. Stable. Remains intubated and unresponsive. Date of service 04/04/2022: No changes. Heart rate reasonably controlled Review of Systems Review of Systems: ROS unobtainable: Yes unobtainable due to endotracheal tube and unobtainable due to medical condition Exam Const: General: comfortable; No alert, awake or in distress Orientation/consciousness: No patient oriented x3 Other: elderly female unresponsive, intubated on mechanical ventilatory support HENMT: Head: normal to inspection Mouth: Yes moist mucous membranes Other: Tongue swollen and ecchymotic Eyes: General: appearance normal, both eyes and all related structures Sclera: sclerae normal Neck: Neck: supple Other: Triple lumen central line RIJ Chest: Chest palpation & inspection: normal inspection of the chest Resp: Effort & Inspection: other (mechanically ventilated ) Auscultation: clear to auscultation bilaterally (only able to auscultate anteriorally ) Other: Coarse breath sounds bilaterally Cardio: Rate: regular rate Rhythm: abnormal rhythm irregularly irregular Heart sounds: no murmurs Other: GI: Inspection: abdominal wall ecchymosis Auscultation: normal bowel sounds Urinary Catheter: Urinary Catheter: patent and draining Skin: General skin exam: normal color Other: Groin arterial insertion site free from bleeding, hematoma Neuro: General: No patient oriented x3 Speech: No normal speech Motor exam (neuro): Motor abnormalites present myoclonus Other
[2022-04-04] MEDS: ENOXAPARIN 40 MG/0.4 ML SYRINGE SUB-Q (09:59)
[2022-04-04] MEDS: carvediloL 3.125 MG TABLET PO ×2 (09:59→20:38)
[2022-04-04] MEDS: LOSARTAN POTASSIUM 12.5 MG TABLET PO (11:00)
[2022-04-04 12:13] LABS: Glucose Point of Care 133 mg/dl (65-105)
--- NOTE | 2022-04-04 14:58 | PC.NURSE ---
Addendum entered by Belinda Israel RN 04/04/22 19:30: Dr. Cornejo also notified that ICU 3 will be hospice 04-05-22. Original Note: Galen (Son) wants to pursue hospice. Informed Galen of hospice process. Deep will be coming out to talk to Galen today. Dr. Cifuentes, Dr. He, and warehouse delivery driver notified.
--- NOTE | 2022-04-04 17:13 | PM.DS ---
DS: Discharge Diagnosis Discharge Diagnosis (1) Acute respiratory failure: Code(s): J96.00 - Acute respiratory failure, unspecified whether with hypoxia or hypercapnia Status: Acute Assessment and Plan: Acute Respiratory failure secondary to cardiac arrest, possible aspiration pneumonia Continue full mechanical ventilation support to prevent hypoxemia/hypercarbia and end organ damage. ABG, Chest CT and PCXR reviewed, PEEP of 5 and FiO2 of 25% Off Versed Continue Keppra and valproic acid Completed course of aztreonam (03/23) and vancomycin (03/26) for pneumonia on 03/30/202203/23 Urine and Blood cultures are negative Sputum cultures grew yeast which is likely colonization Procalcitonin level 0.6 04/04: Son opted for inpatient hospice with plan for extubation in AM. (2) Aspiration pneumonia: Code(s): J69.0 - Pneumonitis due to inhalation of food and vomit Status: Acute Assessment and Plan: see above (3) Cardiac arrest: Code(s): I46.9 - Cardiac arrest, cause unspecified Status: Acute Assessment and Plan: VFib cardiac arrest likely secondary to STEMI 03/22/22: status post partially successful PCI - continued to hold antiplatelet and due to intra-abdominal hemorrhage as hemoglobin continues to drift down, discussed with Cardiology - continue statin and low-dose ARB -Coreg which was held due to bradycardia was resumed at low-dose 03/23 Echocardiogram showed: Borderline LV enlargement, moderate LVH. Moderate LV systolic dysfunction, ejection fraction approximately 40%. Diastolic dysfunction is present. Moderate left atrial enlargement. Mild right atrial enlargement. Normal mitral valve structure, mild mitral regurgitation. Mild aortic valve sclerosis, mild aortic stenosis, valve area 1.7 cm2. Mild tricuspid regurgitation, moderate pulmonary hypertension, RVSP 48 mmHg. (4) ST elevation [place] (STEMI): Code(s): I21.3 - ST elevation (STEMI) myocardial infarction of unspecified site Status: Acute Assessment and Plan: Status post partially successful PCI to terminal portion of the LAD with mandaen of some flow into the apical portion of the vessel with crossing the lesion with the guidewire and approaching with the balloon (5) Ventricular fibrillation: Code(s): I49.01 - Ventricular fibrillation Status: Acute Assessment and Plan: Likely secondary to ST-elevation [place], patient was initially on amiodarone which has been discontinued (6) Intra abdominal hemorrhage: Code(s): R58 - Hemorrhage, not elsewhere classified Status: Acute Assessment and Plan: patient's chest CT shows small amount of hemoperitoneum with post multiple possible etiologies patient received CPR leading to sternal and rib fractures, patient also received anticoagulation for her PCI, she had is femoral arterial puncture for PCI and also had some bleeding on removal of sheath requiring extended pressure CT abdomen pelvis done on 03/26 did not show any hematoma Plavix has been on hold (patient has allergy to aspirin). Initially it was held due to hematoma but later it was not started as I anticipated the patient may need tracheostomy or PEG tube. Resumed Plavix but now on hold at this time for anticipated PEG and trach on 04/05, but cancelled due to hospice plans. Transfuse if needed Coags are in acceptable range 03/26/2022 CT scan of the abdomen and pelvis Small pleural effusions. 2. Airspace opacities in the lower lobes with volume loss, likely predominantly atelectasis. Pneumonia cannot be excluded. 3. Acute fractures of right fifth and sixth ribs again seen. (7) Rib fracture: Code(s): S22.39XA - Fracture of one rib, unspecified side, initial encounter for closed fracture Status: Acute Assessment and Plan: patient sustained sternal and right 5th and 6th rib fractures which are likely from CPR no flail chest conservative management (8) Acut
--- NOTE | 2022-04-04 18:31 | PM.IMPN ---
Progress Note: A&P Assessment and Plan (1) Acute respiratory failure: Code(s): J96.00 - Acute respiratory failure, unspecified whether with hypoxia or hypercapnia Status: Acute Assessment and Plan: Acute Respiratory failure secondary to cardiac arrest, possible aspiration pneumonia Continue full mechanical ventilation support to prevent hypoxemia/hypercarbia and end organ damage. ABG, Chest CT and PCXR reviewed, PEEP of 5 and FiO2 of 25% Off Versed Continue Keppra and valproic acid Completed course of aztreonam (03/23) and vancomycin (03/26) for pneumonia on 03/30/202203/23 Urine and Blood cultures are negative Sputum cultures grew yeast which is likely colonization Procalcitonin level 0.6 04/04: Son opted for inpatient hospice with plan for extubation in AM. (2) Aspiration pneumonia: Code(s): J69.0 - Pneumonitis due to inhalation of food and vomit Status: Acute Assessment and Plan: see above (3) Cardiac arrest: Code(s): I46.9 - Cardiac arrest, cause unspecified Status: Acute Assessment and Plan: VFib cardiac arrest likely secondary to STEMI 03/22/22: status post partially successful PCI - continued to hold antiplatelet and due to intra-abdominal hemorrhage as hemoglobin continues to drift down, discussed with Cardiology - continue statin and low-dose ARB -Coreg which was held due to bradycardia was resumed at low-dose 03/23 Echocardiogram showed: Borderline LV enlargement, moderate LVH. Moderate LV systolic dysfunction, ejection fraction approximately 40%. Diastolic dysfunction is present. Moderate left atrial enlargement. Mild right atrial enlargement. Normal mitral valve structure, mild mitral regurgitation. Mild aortic valve sclerosis, mild aortic stenosis, valve area 1.7 cm2. Mild tricuspid regurgitation, moderate pulmonary hypertension, RVSP 48 mmHg. (4) ST elevation [place] (STEMI): Code(s): I21.3 - ST elevation (STEMI) myocardial infarction of unspecified site Status: Acute Assessment and Plan: Status post partially successful PCI to terminal portion of the LAD with shinto of some flow into the apical portion of the vessel with crossing the lesion with the guidewire and approaching with the balloon (5) Ventricular fibrillation: Code(s): I49.01 - Ventricular fibrillation Status: Acute Assessment and Plan: Likely secondary to ST-elevation [place], patient was initially on amiodarone which has been discontinued (6) Intra abdominal hemorrhage: Code(s): R58 - Hemorrhage, not elsewhere classified Status: Acute Assessment and Plan: patient's chest CT shows small amount of hemoperitoneum with post multiple possible etiologies patient received CPR leading to sternal and rib fractures, patient also received anticoagulation for her PCI, she had is femoral arterial puncture for PCI and also had some bleeding on removal of sheath requiring extended pressure CT abdomen pelvis done on 03/26 did not show any hematoma Plavix has been on hold (patient has allergy to aspirin). Initially it was held due to hematoma but later it was not started as I anticipated the patient may need tracheostomy or PEG tube. Resumed Plavix but now on hold at this time for anticipated PEG and trach on 04/05, but cancelled due to hospice plans. Transfuse if needed Coags are in acceptable range 03/26/2022 CT scan of the abdomen and pelvis Small pleural effusions. 2. Airspace opacities in the lower lobes with volume loss, likely predominantly atelectasis. Pneumonia cannot be excluded. 3. Acute fractures of right fifth and sixth ribs again seen. (7) Rib fracture: Code(s): S22.39XA - Fracture of one rib, unspecified side, initial encounter for closed fracture Status: Acute Assessment and Plan: patient sustained sternal and right 5th and 6th rib fractures which are likely from CPR no flail chest conservative management (8) Acute kid
[2022-04-04 19:28] LABS: Glucose Point of Care 137 mg/dl (65-105)
[2022-04-05] VITALS (23 sets, daily range): BP systolic 97–138; BP diastolic 53–81; PULSE 67–99; RESP 20–25; TEMP 36.9–37.3; O2SAT 96–99
[2022-04-05 00:15] LABS: Glucose Point of Care 163 mg/dl (65-105)
[2022-04-05] MEDS: METOCLOPRAMIDE HCL 10 MG TABLET FEED TUBE ×5 (00:33→23:13)
[2022-04-05] MEDS: levETIRAcetam 1000MG/NACL100ML 1,000 MG/100 ML BAG 400 MG IVPB ×3 (04:07→17:30)
[2022-04-05] MEDS: CENTRAL LINE FLUSH 10 ML IV PUSH ×3 (04:45→20:36)
[2022-04-05 06:49] LABS: Glucose Point of Care 128 mg/dl (65-105)
--- NOTE | 2022-04-05 08:13 | PM.IMPN ---
Progress Note: A&P Assessment and Plan (1) Anoxic brain injury: Code(s): G93.1 - Anoxic brain damage, not elsewhere classified Status: Acute Assessment and Plan: Patient was down for approximately 18 minutes prior to ROSC. Brain CT on admission showing small region of gyral enhancement at the left frontoparietal region most likely CVA with bilateral occipital lobe infarcts subacute versus chronic. Patient without history of stroke. She completed the cooling protocol. Repeat CT brain 03/24 showing some areas with loss of varner-white differentiation suggestive of toxic brain injury and subacute bilateral occipital lobe infarcts. EEG 03/25 showing generalized periodic discharges c/w severe, bihemispheric cerebral dysfunction. She was sedated due to myoclonic jerking and possible seizure but was able to be weaned off sedation. She remained on Keppra and VPA. Neurology consulted and appreciate their input. No meaningful recovery noted off sedation. Family aware of the severity of her condition and they are considering hospice with terminal wean. (2) Ventricular fibrillation: Code(s): I49.01 - Ventricular fibrillation Status: Acute Assessment and Plan: Patient with VFib arrest in the field. CPR started immediately by family and then by EMS. She was shocked once for VFib which resulted in PEA. [place] VFib related to STEMI/ischemia. Appreciated Cardiology input. (3) Cardiac arrest: Code(s): I46.9 - Cardiac arrest, cause unspecified Status: Acute Assessment and Plan: Patient with acute cardiac arrest in the field. STEMI called in the field and patient underwent left heart catheterization on arrival. She had balloon angioplasty but no stent placement to the distal LAD. She was treated with Crestor, Coreg and Cozaar. Plavix was on hold initially held due to intra-abdominal hemorrhage but resumed when safe to do so (held again for possible PEG/Trach). (4) ST elevation [place] (STEMI): Code(s): I21.3 - ST elevation (STEMI) myocardial infarction of unspecified site Status: Acute Assessment and Plan: Inferior STEMI noted by EKG in the field once ROSC was achieved. Left heart catheterization on admission with single-vessel CAD with acute ID with total acute occlusion of the terminal apical portion of the LAD. Very tortuous LAD, anomalous non-diseased RCA and non-diseased LCx. Patient status post balloon angioplasty with some improvement in flow to the distal LAD. Echo showed EF 40-45% and diastolic dysfunction, moderate LAE, mild valvular disease and moderate pulmonary HTN. She was treated medically. (5) Acute respiratory failure: Code(s): J96.00 - Acute respiratory failure, unspecified whether with hypoxia or hypercapnia Status: Acute Assessment and Plan: As above. Acute respiratory failure related to her cardiac arrest. Patient may have aspirated as well contributing to her acute respiratory failure. She completed a course of abx for aspiration pneumonia. She was supported with mechanical ventilation. Appreciate dobby loom chain pegger input. (6) Aspiration pneumonia: Code(s): J69.0 - Pneumonitis due to inhalation of food and vomit Status: Acute Assessment and Plan: CT the chest showing acute fracture of the sternum and right 5th and 6th ribs felt related to chest compressions. Chest CT also showed mild atelectasis but no significant infiltrates. She completed a course of Aztreonam and vancomycin (all abx stopped 03/30). (7) Atrial fibrillation: Code(s): I48.91 - Unspecified atrial fibrillation Status: Acute Assessment and Plan: EKG on admission showing AFib. Unclear if this was evident prior to the cardiac arrest or due to it. She was in/out of AFib here. She was not treated with anticoagulation due to the risk > benefit. Echo noted but no obvious thrombus. Coreg started and heart rate remained stable. (8) Intra abdominal he
--- NOTE | 2022-04-05 08:31 | WPDINTPN ---
Progress Note: A&P Assessment and Plan (1) Acute respiratory failure: Code(s): J96.00 - Acute respiratory failure, unspecified whether with hypoxia or hypercapnia Status: Acute Assessment and Plan: Acute Respiratory failure secondary to cardiac arrest, possible aspiration pneumonia Continue full mechanical ventilation support to prevent hypoxemia/hypercarbia and end organ damage. ABG, Chest CT and PCXR reviewed, PEEP of 5 and FiO2 of 25% Off Versed Continue Keppra and valproic acid Completed course of aztreonam (03/23) and vancomycin (03/26) for pneumonia on 03/30/202203/23 Urine and Blood cultures are negative Sputum cultures grew yeast which is likely colonization Procalcitonin level 0.6 Family is planning to proceed with comfort care and palliative extubation today (2) Aspiration pneumonia: Code(s): J69.0 - Pneumonitis due to inhalation of food and vomit Status: Acute Assessment and Plan: see above (3) Cardiac arrest: Code(s): I46.9 - Cardiac arrest, cause unspecified Status: Acute Assessment and Plan: VFib cardiac arrest likely secondary to STEMI 03/22/22: status post partially successful PCI - continue to hold antiplatelet and due to intra-abdominal hemorrhage as hemoglobin continues to drift down, discussed with Cardiology - continue statin and low-dose ARB -Coreg which was held due to bradycardia will be resumed at low-dose If arrhythmia recurs will start amiodarone infusion, 03/23 Echocardiogram showed: Borderline LV enlargement, moderate LVH. Moderate LV systolic dysfunction, ejection fraction approximately 40%. Diastolic dysfunction is present. Moderate left atrial enlargement. Mild right atrial enlargement. Normal mitral valve structure, mild mitral regurgitation. Mild aortic valve sclerosis, mild aortic stenosis, valve area 1.7 cm2. Mild tricuspid regurgitation, moderate pulmonary hypertension, RVSP 48 mmHg. (4) ST elevation [place] (STEMI): Code(s): I21.3 - ST elevation (STEMI) myocardial infarction of unspecified site Status: Acute Assessment and Plan: Status post partially successful PCI to terminal portion of the LAD with judaism of some flow into the apical portion of the vessel with crossing the lesion with the guidewire and approaching with the balloon (5) Ventricular fibrillation: Code(s): I49.01 - Ventricular fibrillation Status: Acute Assessment and Plan: Likely secondary to ST-elevation [place], patient was initially on amiodarone which has been discontinued (6) Intra abdominal hemorrhage: Code(s): R58 - Hemorrhage, not elsewhere classified Status: Acute Assessment and Plan: patient's chest CT shows small amount of hemoperitoneum with post multiple possible etiologies patient received CPR leading to sternal and rib fractures, patient also received anticoagulation for her PCI, she had is femoral arterial puncture for PCI and also had some bleeding on removal of sheath requiring extended pressure CT abdomen pelvis done on 03/26 did not show any hematoma Plavix has been on hold (patient has allergy to aspirin). Initially it was held due to hematoma but later it was not started as I anticipated the patient may need tracheostomy or PEG tube. Resumed Plavix but now on hold at this time for anticipated PEG and trach on Tuesday Transfuse if needed Coags are in acceptable range 03/26/2022 CT scan of the abdomen and pelvis Small pleural effusions. 2. Airspace opacities in the lower lobes with volume loss, likely predominantly atelectasis. Pneumonia cannot be excluded. 3. Acute fractures of right fifth and sixth ribs again seen. (7) Rib fracture: Code(s): S22.39XA - Fracture of one rib, unspecified side, initial encounter for closed fracture Status: Acute Assessment and Plan: patient sustained sternal and right 5th and 6th rib fractures which are likely from CPR no flail chest conservati
[2022-04-05] MEDS: PANTOPRAZOLE SODIUM IV 40 MG VIAL IV PUSH (08:54)
[2022-04-05] MEDS: ENOXAPARIN 40 MG/0.4 ML SYRINGE SUB-Q (08:54)
[2022-04-05] MEDS: MINERAL OIL/WHITE PETROLATUM OINTMENT 1 APPLIC EACH EYE ×2 (08:54→20:35)
[2022-04-05] MEDS: carvediloL 3.125 MG TABLET PO ×2 (08:54→20:35)
[2022-04-05] MEDS: LOSARTAN POTASSIUM 12.5 MG TABLET PO (08:54)
--- NOTE | 2022-04-05 10:34 | PC.NURSE ---
called son Galen to discuss further hospice plans. Galen stated that it would not be happening today and they are waiting on a nephew to get in town tomorrow (Tuesday) so they would be moving forward possibly tomorrow if not then definitely Tuesday. Dr. Cornejo discussed care with Galen as well and informed him we will continue care but will not escalate care, then move forward with hospice when family is ready.
--- NOTE | 2022-04-05 10:43 | PM.EVENT ---
Event Note Event Note Event Note: Spoke to patient's son by phone. Confirmed family's decision to proceed with palliative care and not trach and PEG. He states that they would like to wait until and nephew who was on his way to see patient can visit her and say his goodbye. He anticipates it will either be tomorrow or Tuesday. until and will continue supportive care with no further escalation and patient will be DNR. I explained this to the patient's son by phone and he verbalized understanding and agreed with the plan.
[2022-04-05 11:19] LABS: Glucose Point of Care 137 mg/dl (65-105)
--- NOTE | 2022-04-05 11:25 | PCFNICU ---
ICU Rounding Note: Pt current nutrition is NPO. Last recorded weight is 105.1 kg, up from 96.9 kg on admit. Bowel Motility: +BM reported 04/04 Skin: WNL Additional Notes: Patient current NPO. Plans for hospice care. No further nutritional interventions needs. Following daily in ICU rounds.
[2022-04-05 17:13] LABS: Glucose Point of Care 121 mg/dl (65-105)
[2022-04-05 23:21] LABS: Glucose Point of Care 96 mg/dl (65-105)
[2022-04-06] VITALS (26 sets, daily range): BP systolic 99–134; BP diastolic 63–95; PULSE 60–108; RESP 20–28; TEMP 36.8–38.2; O2SAT 95–100
[2022-04-06] MEDS: levETIRAcetam 1000MG/NACL100ML 1,000 MG/100 ML BAG 400 MG IVPB ×3 (01:41→17:38)
[2022-04-06] MEDS: METOCLOPRAMIDE HCL 10 MG TABLET FEED TUBE ×4 (04:57→23:46)
[2022-04-06] MEDS: CENTRAL LINE FLUSH 10 ML IV PUSH ×3 (04:57→20:14)
[2022-04-06] MEDS: SCOPOLAMINE 1.5 MG PATCH TRANSDERM (05:01)
[2022-04-06 05:03] LABS: Glucose Point of Care 96 mg/dl (65-105)
[2022-04-06] MEDS: carvediloL 3.125 MG TABLET PO ×2 (08:28→20:13)
[2022-04-06] MEDS: LOSARTAN POTASSIUM 12.5 MG TABLET PO (08:28)
[2022-04-06] MEDS: PANTOPRAZOLE SODIUM IV 40 MG VIAL IV PUSH (08:28)
[2022-04-06] MEDS: ENOXAPARIN 40 MG/0.4 ML SYRINGE SUB-Q (08:28)
[2022-04-06] MEDS: MINERAL OIL/WHITE PETROLATUM OINTMENT 1 APPLIC EACH EYE ×2 (08:29→20:14)
--- NOTE | 2022-04-06 11:23 | PM.IMPN ---
Progress Note: A&P Assessment and Plan (1) Anoxic brain injury: Code(s): G93.1 - Anoxic brain damage, not elsewhere classified Status: Acute Assessment and Plan: Patient was down for approximately 18 minutes prior to ROSC. Brain CT on admission showing small region of gyral enhancement at the left frontoparietal region most likely CVA with bilateral occipital lobe infarcts subacute versus chronic. Patient without history of stroke. She completed the cooling protocol. Repeat CT brain 03/24 showing some areas with loss of varner-white differentiation suggestive of toxic brain injury and subacute bilateral occipital lobe infarcts. EEG 03/25 showing generalized periodic discharges c/w severe, bihemispheric cerebral dysfunction. She was sedated due to myoclonic jerking and possible seizure but was able to be weaned off sedation. She remained on Keppra and VPA. Neurology consulted and appreciate their input. No meaningful recovery noted off sedation. Family aware of the severity of her condition and they are considering hospice with terminal wean tomorrow. (2) Ventricular fibrillation: Code(s): I49.01 - Ventricular fibrillation Status: Acute Assessment and Plan: Patient with VFib arrest in the field. CPR started immediately by family and then by EMS. She was shocked once for VFib which resulted in PEA. [place] VFib related to STEMI/ischemia. Appreciated Cardiology input. (3) Cardiac arrest: Code(s): I46.9 - Cardiac arrest, cause unspecified Status: Acute Assessment and Plan: Patient with acute cardiac arrest in the field. STEMI called in the field and patient underwent left heart catheterization on arrival. She had balloon angioplasty but no stent placement to the distal LAD. She was treated with Crestor, Coreg and Cozaar. Plavix was on hold initially held due to intra-abdominal hemorrhage but resumed when safe to do so (held again for possible PEG/Trach). (4) ST elevation [place] (STEMI): Code(s): I21.3 - ST elevation (STEMI) myocardial infarction of unspecified site Status: Acute Assessment and Plan: Inferior STEMI noted by EKG in the field once ROSC was achieved. Left heart catheterization on admission with single-vessel CAD with acute OK with total acute occlusion of the terminal apical portion of the LAD. Very tortuous LAD, anomalous non-diseased RCA and non-diseased LCx. Patient status post balloon angioplasty with some improvement in flow to the distal LAD. Echo showed EF 40-45% and diastolic dysfunction, moderate LAE, mild valvular disease and moderate pulmonary HTN. She was treated medically. (5) Acute respiratory failure: Code(s): J96.00 - Acute respiratory failure, unspecified whether with hypoxia or hypercapnia Status: Acute Assessment and Plan: As above. Acute respiratory failure related to her cardiac arrest. Patient may have aspirated as well contributing to her acute respiratory failure. She completed a course of abx for aspiration pneumonia. She was supported with mechanical ventilation. Appreciate transport analyst input. (6) Aspiration pneumonia: Code(s): J69.0 - Pneumonitis due to inhalation of food and vomit Status: Acute Assessment and Plan: CT the chest showing acute fracture of the sternum and right 5th and 6th ribs felt related to chest compressions. Chest CT also showed mild atelectasis but no significant infiltrates. She completed a course of Aztreonam and vancomycin (all abx stopped 03/30). (7) Atrial fibrillation: Code(s): I48.91 - Unspecified atrial fibrillation Status: Acute Assessment and Plan: EKG on admission showing AFib. Unclear if this was evident prior to the cardiac arrest or due to it. She was in/out of AFib here. She was not treated with anticoagulation due to the risk > benefit. Echo noted but no obvious thrombus. Coreg started and heart rate remained stable. (8) Intra abd
--- NOTE | 2022-04-06 12:02 | WPDINTPN ---
Progress Note: A&P Assessment and Plan (1) Acute respiratory failure: Code(s): J96.00 - Acute respiratory failure, unspecified whether with hypoxia or hypercapnia Status: Acute Assessment and Plan: Acute Respiratory failure secondary to cardiac arrest, possible aspiration pneumonia Continue full mechanical ventilation support to prevent hypoxemia/hypercarbia and end organ damage. ABG, Chest CT and PCXR reviewed, PEEP of 5 and FiO2 of 25% Off Versed Continue Keppra and valproic acid Completed course of aztreonam (03/23) and vancomycin (03/26) for pneumonia on 03/30/202203/23 Urine and Blood cultures are negative Sputum cultures grew yeast which is likely colonization Procalcitonin level 0.6 Family is planning to proceed with comfort care and palliative on 04/07/2022 (2) Aspiration pneumonia: Code(s): J69.0 - Pneumonitis due to inhalation of food and vomit Status: Acute Assessment and Plan: see above (3) Cardiac arrest: Code(s): I46.9 - Cardiac arrest, cause unspecified Status: Acute Assessment and Plan: VFib cardiac arrest likely secondary to STEMI 03/22/22: status post partially successful PCI - continue to hold antiplatelet and due to intra-abdominal hemorrhage as hemoglobin continues to drift down, discussed with Cardiology - continue statin and low-dose ARB -Coreg which was held due to bradycardia will be resumed at low-dose If arrhythmia recurs will start amiodarone infusion, 03/23 Echocardiogram showed: Borderline LV enlargement, moderate LVH. Moderate LV systolic dysfunction, ejection fraction approximately 40%. Diastolic dysfunction is present. Moderate left atrial enlargement. Mild right atrial enlargement. Normal mitral valve structure, mild mitral regurgitation. Mild aortic valve sclerosis, mild aortic stenosis, valve area 1.7 cm2. Mild tricuspid regurgitation, moderate pulmonary hypertension, RVSP 48 mmHg. (4) ST elevation [place] (STEMI): Code(s): I21.3 - ST elevation (STEMI) myocardial infarction of unspecified site Status: Acute Assessment and Plan: Status post partially successful PCI to terminal portion of the LAD with religion of some flow into the apical portion of the vessel with crossing the lesion with the guidewire and approaching with the balloon (5) Ventricular fibrillation: Code(s): I49.01 - Ventricular fibrillation Status: Acute Assessment and Plan: Likely secondary to ST-elevation [place], patient was initially on amiodarone which has been discontinued (6) Intra abdominal hemorrhage: Code(s): R58 - Hemorrhage, not elsewhere classified Status: Acute Assessment and Plan: patient's chest CT shows small amount of hemoperitoneum with post multiple possible etiologies patient received CPR leading to sternal and rib fractures, patient also received anticoagulation for her PCI, she had is femoral arterial puncture for PCI and also had some bleeding on removal of sheath requiring extended pressure CT abdomen pelvis done on 03/26 did not show any hematoma Plavix has been on hold (patient has allergy to aspirin). Initially it was held due to hematoma but later it was not started as I anticipated the patient may need tracheostomy or PEG tube. Resumed Plavix but now on hold at this time for anticipated PEG and trach on Tuesday Transfuse if needed Coags are in acceptable range 03/26/2022 CT scan of the abdomen and pelvis Small pleural effusions. 2. Airspace opacities in the lower lobes with volume loss, likely predominantly atelectasis. Pneumonia cannot be excluded. 3. Acute fractures of right fifth and sixth ribs again seen. (7) Rib fracture: Code(s): S22.39XA - Fracture of one rib, unspecified side, initial encounter for closed fracture Status: Acute Assessment and Plan: patient sustained sternal and right 5th and 6th rib fractures which are likely from CPR no flail chest conservative
--- NOTE | 2022-04-06 12:05 | PCFNICU ---
ICU Rounding Note: Pt current nutrition is Vital AF 1.2 at 55 ml/hr over 22 hours. Last recorded weight is 109.8 kg, up from 96.9 kg on admit. Bowel Motility:+BM reported 04/06 Labs Reviewed:No new labs to report. Meds Noted: Lasix,Keppra, Protonix, Coreg, Cozaar, Miralax, Crestor Skin: WNL Additional Notes: Patient remains on tube feedings of Vital AF 1.2 at 55 ml/hr over 22 hours. Tolerating tube feedings. Plans for hospice care. Following daily in ICU rounds.
[2022-04-06 12:57] LABS: Anion Gap 2 mmol/L (8-16); Blood Urea Nitrogen 29 mg/dL (7-17); Calcium 7.7 mg/dL (8.4-10.2); Carbon Dioxide 32 mmol/L (22-30); Chloride 102 mmol/L (98-107); Estimated CRCL calculation 62 ml/min; Estimated Glomerular Filt Rate > 60; Glucose 122 mg/dL (65-110); Potassium 3.8 mmol/L (3.4-5.0); Sodium 136 mmol/L (137-145)
[2022-04-07] VITALS (16 sets, daily range): BP systolic 104–138; BP diastolic 65–109; PULSE 64–100; RESP 20–25; TEMP 36.9–38.2; O2SAT 95–100
[2022-04-07] MEDS: levETIRAcetam 1000MG/NACL100ML 1,000 MG/100 ML BAG 400 MG IVPB ×2 (01:43→09:31)
[2022-04-07] MEDS: METOCLOPRAMIDE HCL 10 MG TABLET FEED TUBE ×2 (05:15→11:06)
[2022-04-07] MEDS: CENTRAL LINE FLUSH 10 ML IV PUSH ×2 (05:15→14:57)
--- NOTE | 2022-04-07 08:28 | WPDINTPN ---
Progress Note: A&P Assessment and Plan (1) Acute respiratory failure: Code(s): J96.00 - Acute respiratory failure, unspecified whether with hypoxia or hypercapnia Status: Acute Assessment and Plan: Acute Respiratory failure secondary to cardiac arrest, possible aspiration pneumonia Continue full mechanical ventilation support to prevent hypoxemia/hypercarbia and end organ damage. ABG, Chest CT and PCXR reviewed, PEEP of 5 and FiO2 of 25% Off Versed Continue Keppra and valproic acid Completed course of aztreonam (03/23) and vancomycin (03/26) for pneumonia on 03/30/202203/23 Urine and Blood cultures are negative Sputum cultures grew yeast which is likely colonization Procalcitonin level 0.6 Family is planning to proceed with comfort care and palliative on 04/07/2022 (2) Aspiration pneumonia: Code(s): J69.0 - Pneumonitis due to inhalation of food and vomit Status: Acute Assessment and Plan: see above (3) Cardiac arrest: Code(s): I46.9 - Cardiac arrest, cause unspecified Status: Acute Assessment and Plan: VFib cardiac arrest likely secondary to STEMI 03/22/22: status post partially successful PCI - continue to hold antiplatelet and due to intra-abdominal hemorrhage as hemoglobin continues to drift down, discussed with Cardiology - continue statin and low-dose ARB -Coreg which was held due to bradycardia will be resumed at low-dose If arrhythmia recurs will start amiodarone infusion, 03/23 Echocardiogram showed: Borderline LV enlargement, moderate LVH. Moderate LV systolic dysfunction, ejection fraction approximately 40%. Diastolic dysfunction is present. Moderate left atrial enlargement. Mild right atrial enlargement. Normal mitral valve structure, mild mitral regurgitation. Mild aortic valve sclerosis, mild aortic stenosis, valve area 1.7 cm2. Mild tricuspid regurgitation, moderate pulmonary hypertension, RVSP 48 mmHg. (4) ST elevation [place] (STEMI): Code(s): I21.3 - ST elevation (STEMI) myocardial infarction of unspecified site Status: Acute Assessment and Plan: Status post partially successful PCI to terminal portion of the LAD with evangelical of some flow into the apical portion of the vessel with crossing the lesion with the guidewire and approaching with the balloon (5) Ventricular fibrillation: Code(s): I49.01 - Ventricular fibrillation Status: Acute Assessment and Plan: Likely secondary to ST-elevation AR, patient was initially on amiodarone which has been discontinued (6) Intra abdominal hemorrhage: Code(s): R58 - Hemorrhage, not elsewhere classified Status: Acute Assessment and Plan: patient's chest CT shows small amount of hemoperitoneum with post multiple possible etiologies patient received CPR leading to sternal and rib fractures, patient also received anticoagulation for her PCI, she had is femoral arterial puncture for PCI and also had some bleeding on removal of sheath requiring extended pressure CT abdomen pelvis done on 03/26 did not show any hematoma Plavix has been on hold (patient has allergy to aspirin). Initially it was held due to hematoma but later it was not started as I anticipated the patient may need tracheostomy or PEG tube. Resumed Plavix but now on hold at this time for anticipated PEG and trach on Tuesday Transfuse if needed Coags are in acceptable range 03/26/2022 CT scan of the abdomen and pelvis Small pleural effusions. 2. Airspace opacities in the lower lobes with volume loss, likely predominantly atelectasis. Pneumonia cannot be excluded. 3. Acute fractures of right fifth and sixth ribs again seen. (7) Rib fracture: Code(s): S22.39XA - Fracture of one rib, unspecified side, initial encounter for closed fracture Status: Acute Assessment and Plan: patient sustained sternal and right 5th and 6th rib fractures which are likely from CPR no flail chest conservative
--- NOTE | 2022-04-07 08:32 | PM.IMPN ---
Progress Note: A&P Assessment and Plan (1) Anoxic brain injury: Code(s): G93.1 - Anoxic brain damage, not elsewhere classified Status: Acute Assessment and Plan: Patient was down for approximately 18 minutes prior to ROSC. Brain CT on admission showing small region of gyral enhancement at the left frontoparietal region most likely CVA with bilateral occipital lobe infarcts subacute versus chronic. Patient without history of stroke. She completed the cooling protocol. Repeat CT brain 03/24 showing some areas with loss of varner-white differentiation suggestive of toxic brain injury and subacute bilateral occipital lobe infarcts. EEG 03/25 showing generalized periodic discharges c/w severe, bihemispheric cerebral dysfunction. She was sedated due to myoclonic jerking and possible seizure but was able to be weaned off sedation. She remained on Keppra and VPA. Neurology consulted and appreciate their input. No meaningful recovery noted off sedation. Family aware of the severity of her condition and they are considering hospice with terminal wean. They are waiting for other family members to arrive. Possible changing to hospice today. (2) Ventricular fibrillation: Code(s): I49.01 - Ventricular fibrillation Status: Acute Assessment and Plan: Patient with VFib arrest in the field. CPR started immediately by family and then by EMS. She was shocked once for VFib which resulted in PEA. [place] VFib related to STEMI/ischemia. Tele noted. Appreciated Cardiology input. (3) Cardiac arrest: Code(s): I46.9 - Cardiac arrest, cause unspecified Status: Acute Assessment and Plan: Patient with acute cardiac arrest in the field. STEMI called in the field and patient underwent left heart catheterization on arrival. She had balloon angioplasty but no stent placement to the distal LAD. She was treated with Crestor, Coreg and Cozaar. Plavix was on hold initially held due to intra-abdominal hemorrhage but resumed when safe to do so (held again for possible PEG/Trach). (4) ST elevation [place] (STEMI): Code(s): I21.3 - ST elevation (STEMI) myocardial infarction of unspecified site Status: Acute Assessment and Plan: Inferior STEMI noted by EKG in the field once ROSC was achieved. Left heart catheterization on admission with single-vessel CAD with acute [place] with total acute occlusion of the terminal apical portion of the LAD. Very tortuous LAD, anomalous non-diseased RCA and non-diseased LCx. Patient status post balloon angioplasty with some improvement in flow to the distal LAD. Echo showed EF 40-45% and diastolic dysfunction, moderate LAE, mild valvular disease and moderate pulmonary HTN. She was treated medically. (5) Acute respiratory failure: Code(s): J96.00 - Acute respiratory failure, unspecified whether with hypoxia or hypercapnia Status: Acute Assessment and Plan: As above. Acute respiratory failure related to her cardiac arrest. Patient may have aspirated as well contributing to her acute respiratory failure. She completed a course of abx for aspiration pneumonia. She was supported with mechanical ventilation. Stable on minimal settings. Appreciate chemist steroids input. (6) Aspiration pneumonia: Code(s): J69.0 - Pneumonitis due to inhalation of food and vomit Status: Acute Assessment and Plan: CT the chest showing acute fracture of the sternum and right 5th and 6th ribs felt related to chest compressions. Chest CT also showed mild atelectasis but no significant infiltrates. She completed a course of Aztreonam and vancomycin (all abx stopped 03/30). Now having low grade fevers. Monitor for now. (7) Atrial fibrillation: Code(s): I48.91 - Unspecified atrial fibrillation Status: Acute Assessment and Plan: EKG on admission showing AFib. Unclear if this was evident prior to the cardiac arrest or due to it. She was in/out of AFib here. She
[2022-04-07] MEDS: ENOXAPARIN 40 MG/0.4 ML SYRINGE SUB-Q (09:31)
[2022-04-07] MEDS: PANTOPRAZOLE SODIUM IV 40 MG VIAL IV PUSH (09:31)
[2022-04-07] MEDS: LOSARTAN POTASSIUM 12.5 MG TABLET PO (09:31)
[2022-04-07] MEDS: carvediloL 3.125 MG TABLET PO (09:31)
[2022-04-07] MEDS: MINERAL OIL/WHITE PETROLATUM OINTMENT 1 APPLIC EACH EYE (09:33)
--- NOTE | 2022-04-07 11:22 | PCFNICU ---
ICU Rounding Note: Pt current nutrition is Vital AF 1.2 at 55 ml/hr over 22 hours. Last recorded weight is 111.1 kg, up from 96.9 kg on admit. Bowel Motility: +BM reported 04/07 Labs Reviewed:no new labs to report today. Meds Noted:Lovenox, Coreg, Keppra, Cozaar, Reglan,Protonix. Skin: WNL Additional Notes: Patient remains on mechanical vent. Plans for hospice care. Patient remains on tube feedings of Vital AF 1.2 at 55 ml/hr over 22 hours and tolerating per nursing. Agree with diet orders. Following daily in ICU rounds.
[2022-04-07] MEDS: LORazepam INJ (*CRX) 2 MG/ML VIAL IV PUSH (16:00)
[2022-04-07] MEDS: MORPHINE SULFATE INJ (*CRX) 10 MG/ML AMP 5 MG IV PUSH (17:09)
--- NOTE | 2022-04-08 08:01 | PM.DS ---
DS: Admitting Diagnosis Discharge Date 04/07/22 Admitting Diagnosis Cardiac arrest DS: Discharge Diagnosis Discharge Diagnosis (1) Anoxic brain injury: Code(s): G93.1 - Anoxic brain damage, not elsewhere classified Status: Acute Assessment and Plan: Patient was down for approximately 18 minutes prior to ROSC. Brain CT on admission showing small region of gyral enhancement at the left frontoparietal region most likely CVA with bilateral occipital lobe infarcts subacute versus chronic. Patient without history of stroke. She completed the cooling protocol. Repeat CT brain 03/24 showing some areas with loss of varner-white differentiation suggestive of toxic brain injury and subacute bilateral occipital lobe infarcts. EEG 03/25 showing generalized periodic discharges c/w severe, bihemispheric cerebral dysfunction. She was sedated due to myoclonic jerking and possible seizure but was able to be weaned off sedation. She remained on Keppra and VPA. Neurology consulted and appreciated their input. No meaningful recovery noted off sedation. Family aware of the severity of her condition and they werre presented with options including hospice. They decided to move patient to hospice care. She was discharged to inpatient hospice. (2) Ventricular fibrillation: Code(s): I49.01 - Ventricular fibrillation Status: Acute Assessment and Plan: Patient with VFib arrest in the field. CPR started immediately by family and then by EMS. She was shocked once for VFib which resulted in PEA. [place] VFib related to STEMI/ischemia. Appreciated Cardiology input. (3) Cardiac arrest: Code(s): I46.9 - Cardiac arrest, cause unspecified Status: Acute Assessment and Plan: Patient with acute cardiac arrest in the field. STEMI called in the field and patient underwent left heart catheterization on arrival. She had balloon angioplasty but no stent placement to the distal LAD. She was treated with Crestor, Coreg and Cozaar. Plavix was on hold initially held due to intra-abdominal hemorrhage but resumed when safe to do so (but held again for possible PEG/Trach). (4) ST elevation [place] (STEMI): Code(s): I21.3 - ST elevation (STEMI) myocardial infarction of unspecified site Status: Acute Assessment and Plan: Inferior STEMI noted by EKG in the field once ROSC was achieved. Left heart catheterization on admission with single-vessel CAD with acute [place] with total acute occlusion of the terminal apical portion of the LAD. Very tortuous LAD, anomalous non-diseased RCA and non-diseased LCx. Patient status post balloon angioplasty with some improvement in flow to the distal LAD. Echo showed EF 40-45% and diastolic dysfunction, moderate LAE, mild valvular disease and moderate pulmonary HTN. She was treated medically. (5) Acute respiratory failure: Code(s): J96.00 - Acute respiratory failure, unspecified whether with hypoxia or hypercapnia Status: Acute Assessment and Plan: As above. Acute respiratory failure related to her cardiac arrest. Patient may have aspirated as well contributing to her acute respiratory failure. She completed a course of abx for aspiration pneumonia. She was supported with mechanical ventilation. Appreciate veneer manufacturer input. (6) Aspiration pneumonia: Code(s): J69.0 - Pneumonitis due to inhalation of food and vomit Status: Acute Assessment and Plan: CT the chest showing acute fracture of the sternum and right 5th and 6th ribs felt related to chest compressions. Chest CT also showed mild atelectasis but no significant infiltrates. She completed a course of Aztreonam and vancomycin (all abx stopped 03/30). (7) Atrial fibrillation: Code(s): I48.91 - Unspecified atrial fibrillation Status: Acute Assessment and Plan: EKG on admission showing AFib. Unclear if this was evident prior to the cardiac arrest or due to it. She was i
== END 2022-04-07 15:45 | disposition hospice, inpatient (51) | DRG 280 ==
LOC: ANHED 22:04 → ANHICU 22:16
PROVIDERS: Internal Medicine; Admitting Provider Specialist; Emergency Provider Emergency Medicine; PCP Internal Medicine; Visit Provider Internal Medicine
PROC: 4A023N7 Measurement of Cardiac Sampling and Pressure, Left Heart, Percutaneous Approach (ICD-10-PCS; CPT 93452; principal; 2022-03-22 22:00)
PROC: 4A023N7 Measurement of Cardiac Sampling and Pressure, Left Heart, Percutaneous Approach (ICD-10-PCS; CPT 92920; 2022-03-22 22:00)
DX: I21.09 ST elevation (STEMI) myocardial infarction involving other coronary artery of anterior wall (principal); I49.01 Ventricular fibrillation; I46.2 Cardiac arrest due to underlying cardiac condition; J96.00 Acute respiratory failure, unspecified whether with hypoxia or hypercapnia; J69.0 Pneumonitis due to inhalation of food and vomit; K66.1 Hemoperitoneum; I63.9 Cerebral infarction, unspecified; M96.89 Other intraoperative and postprocedural complications and disorders of the musculoskeletal system; N17.9 Acute kidney failure, unspecified; M62.82 Rhabdomyolysis; G93.1 Anoxic brain damage, not elsewhere classified; Z66 Do not resuscitate; Z51.5 Encounter for palliative care; I10 Essential (primary) hypertension; Z91.14 Patient's other noncompliance with medication regimen; Y84.8 Other medical procedures as the cause of abnormal reaction of the patient, or of later complication, without mention of misadventure at the time of the procedure; I25.10 Atherosclerotic heart disease of native coronary artery without angina pectoris; R79.89 Other specified abnormal findings of blood chemistry; E16.2 Hypoglycemia, unspecified; I48.0 Paroxysmal atrial fibrillation; R56.9 Unspecified convulsions; G25.3 Myoclonus; I27.20 Pulmonary hypertension, unspecified; R50.9 Fever, unspecified; T78.40XA Allergy, unspecified, initial encounter; X58.XXXA Exposure to other specified factors, initial encounter; R21 Rash and other nonspecific skin eruption; I35.0 Nonrheumatic aortic (valve) stenosis
CPT/HCPCS: 36415; 36600; 51702; 70450; 71045; 71250; 74176; 76775; 80048; 80053; 80061; 80202; 80307; 81001; 82375; 82550; 82805; 82948; 83050; 83605; 83690; 83735; 84100; 84145; 84484; 85025; 85027; 85384; 85610; 85730; 86850; 86900; 86901; 87040; 87070; 87086; 87205; 92920; 92950; 93005; 93306; 93458; 93971; 94003; 95816; 99291; A9270; C1725; C1751; C1769; C1887; C1894; C9113; J0583; J0610; J1200; J1644; J1650; J1815; J1953; J2060; J2250; J2270; J2704; J2920; J2930; J2997; J3370; J3475; J3480; J7030; J7040; J7120; P9047

== ENCOUNTER 2022-04-07 15:20 | HOS | payer OTHER, MEDICARE, SELFPAY ==
[2022-04-07 16:25] VITALS: BMI 40.7
--- NOTE | 2022-04-07 16:26 | PM.IMHP ---
H&P: HPI History of Present Illness Date/Time: 04/07/22 16:26 Chief Complaint: comfort care Narrative: Admitted to ICU after cardiac arrest. Was down for 30 min or more. EEG and clinical findings c/w severe anoxic encephalopathy. After several days of mechanical ventilation, family opted for extubation and comfort care only on 04/07/2022. Review of Systems Review of Systems: ROS unobtainable: Yes unobtainable due to medical condition PMFSH Past Medical History Medical History Hypertension Surgical History Surgical History Surgical history unknown Family History Family History Other Unknown family medical history Social History Social History Smoking status: Never smoker Alcohol intake: never Substance use: never Spiritual care concerns: No Meds Home Medications and Allergies Home Medications Medication Instructions Recorded Confirmed Type diltiazem HCl 180 mg PO DAILY 03/23/22 04/07/22 History losartan 100 mg PO DAILY 03/23/22 04/07/22 History metoprolol succinate 100 mg PO DAILY 03/23/22 04/07/22 History Allergies Allergy/AdvReac Type Severity Reaction Status Date / Time aspirin Allergy Hives Verified 03/23/22 00:29 ibuprofen Allergy Hives Verified 03/23/22 00:29 Penicillins Allergy Unknown Verified 03/23/22 00:29 Exam Narrative: No JVD Chest coarse BS, snoring respirations Heart RR Abd hypoactive BS Extr cool Neuro CN symmetric to visual inspection, no response to noxious stimuli Assessment and Plan Assessment and plan (1) Palliative care by specialist: Code(s): Z51.5 - Encounter for palliative care Status: Acute Assessment and Plan: Meets inpatient hospice criteria due to requiring continuous IV morphine for control of post-extubation dyspnea Remainder of palliative regimen as ordered (2) Anoxic brain injury: Code(s): G93.1 - Anoxic brain damage, not elsewhere classified Status: Acute (3) Cardiac arrest: Code(s): I46.9 - Cardiac arrest, cause unspecified Status: Acute (4) Ventricular fibrillation: Code(s): I49.01 - Ventricular fibrillation Status: Acute (5) Paroxysmal atrial fibrillation: Code(s): I48.0 - Paroxysmal atrial fibrillation Status: Acute (6) Acute kidney injury: Code(s): N17.9 - Acute kidney failure, unspecified Status: Acute (7) Hypertension: Qualifiers: Hypertension type: unspecified Qualified Code(s): I10 - Essential (primary) hypertension Code(s): I10 - Essential (primary) hypertension Status: Acute (8) ST elevation [place] (STEMI): Qualifiers: Involved coronary artery: unspecified coronary artery Qualified Code(s): I21.3 - ST elevation (STEMI) myocardial infarction of unspecified site Code(s): I21.3 - ST elevation (STEMI) myocardial infarction of unspecified site Status: Acute (9) Acute respiratory failure: Qualifiers: Respiratory failure complication: unspecified whether with hypoxia or hypercapnia Qualified Code(s): J96.00 - Acute respiratory failure, unspecified whether with hypoxia or hypercapnia Code(s): J96.00 - Acute respiratory failure, unspecified whether with hypoxia or hypercapnia Status: Acute Quality If No VTE Prophylaxis Answer both mechanical and pharmacologic: Reason no mechanical VTE proph: low risk/not indicated and medical contraindication (comfort care only)
--- NOTE | 2022-04-07 16:31 | PC.NURSE ---
Patient provided prn medication, Ativen 2 mg ivpush and Morphine 5 mg ivpush, and extubated at 1616 with family at bedside.
[2022-04-07] MEDS: MORPHINE SULFATE INJ (*CRX) 50 MG in SODIUM CHLORIDE 0.9% IV 95 ML IV CONT (16:42)
[2022-04-07] MEDS: GLYCOPYRROLATE INJ (*SP) 0.2 MG/ML VIAL 0.1 MG IV PUSH (16:51)
[2022-04-07 17:11] VITALS: BP 109/68; PULSE 70; RESP 21; O2SAT 90
[2022-04-07] MEDS: MORPHINE SULFATE (*CRX) 2 MG/ML INJ IV PUSH ×2 (17:21→20:03)
[2022-04-07 19:34] VITALS: PULSE 83; RESP 17; O2SAT 86
[2022-04-07] MEDS: LORazepam INJ (*CRX) 2 MG/ML VIAL 1 MG IV PUSH (20:04)
[2022-04-07 20:33] VITALS: BP 98/58; PULSE 50; RESP 22; TEMP 36.2; O2SAT 94
--- NOTE | 2022-04-07 20:46 | PC.NURSE ---
This patient, Lata Warren, was transferred to [ [id number]] on 04/07/22 at 2047. Personal belongings sent with patient. Report given to [ [place] VARELA]. Appropriate documentation sent with patient. Family updated on room and bed transfer.
[2022-04-08] MEDS: GLYCOPYRROLATE INJ (*SP) 0.2 MG/ML VIAL 0.1 MG IV PUSH ×3 (01:02→12:03)
[2022-04-08 14:04] VITALS: BP 84/57; PULSE 89; RESP 14; TEMP 36.6; O2SAT 94
--- NOTE | 2022-04-08 16:35 | PM.IMPN ---
Progress Note: A&P Assessment and Plan (1) Palliative care by specialist: Code(s): Z51.5 - Encounter for palliative care Status: Acute Assessment and Plan: Meets inpatient hospice criteria due to requiring continuous IV morphine for control of post-extubation dyspnea Remainder of palliative regimen as ordered (2) Anoxic brain injury: Code(s): G93.1 - Anoxic brain damage, not elsewhere classified Status: Acute (3) Cardiac arrest: Code(s): I46.9 - Cardiac arrest, cause unspecified Status: Acute (4) Ventricular fibrillation: Code(s): I49.01 - Ventricular fibrillation Status: Acute (5) Paroxysmal atrial fibrillation: Code(s): I48.0 - Paroxysmal atrial fibrillation Status: Acute (6) Acute kidney injury: Code(s): N17.9 - Acute kidney failure, unspecified Status: Acute (7) Hypertension: Qualifiers: Hypertension type: unspecified Qualified Code(s): I10 - Essential (primary) hypertension Code(s): I10 - Essential (primary) hypertension Status: Acute (8) ST elevation [place] (STEMI): Qualifiers: Involved coronary artery: unspecified coronary artery Qualified Code(s): I21.3 - ST elevation (STEMI) myocardial infarction of unspecified site Code(s): I21.3 - ST elevation (STEMI) myocardial infarction of unspecified site Status: Acute (9) Acute respiratory failure: Qualifiers: Respiratory failure complication: unspecified whether with hypoxia or hypercapnia Qualified Code(s): J96.00 - Acute respiratory failure, unspecified whether with hypoxia or hypercapnia Code(s): J96.00 - Acute respiratory failure, unspecified whether with hypoxia or hypercapnia Status: Acute Subjective Date/time seen: 04/08/22 16:35 Interval history: 04/08 visit. Remains comfortable. Review of Systems Review of Systems: ROS unobtainable: Yes unobtainable due to medical condition Exam Narrative: No JVD Chest coarse BS, snoring respirations Heart RR Abd hypoactive BS Extr cool Neuro CN symmetric to visual inspection, no response to noxious stimuli Objective Data Vital Signs Vital Signs: Vital Signs - 24 hr 04/07/22 17:11 04/07/22 19:34 04/07/22 20:33 Temperature 97.1 F L Pulse Rate 70 83 50 L Respiratory Rate 21 H 17 22 H Blood Pressure 109/68 98/58 L Pulse Oximetry 90 86 L 94 04/08/22 14:04 Temperature 97.9 F Pulse Rate 89 Respiratory Rate 14 Blood Pressure 84/57 L Pulse Oximetry 94 Intake/Output Intake/Output: Intake & Output 04/05/22 04/06/22 04/07/22 04/08/22 23:59 23:59 23:59 23:59 Intake Total 0 Output Total 475 400 Balance -475 -400 Meds/Results Medications: Active Medications Generic Name Dose Route Start Last Admin Trade Name Freq PRN Reason Stop Dose Admin Artificial Tears 1 drop 04/07/22 16:15 Artificial Tears Ophth Soln 15 Ml Bottle EACH EYE Q12H PRN Dry Eye(s) Bisacodyl 10 mg 04/07/22 16:15 Bisacodyl 10 Mg Suppository RECTAL DAILY PRN Constipation Glycopyrrolate 0.1 mg 04/07/22 16:15 04/08/22 12:03 Glycopyrrolate Inj (*Sp) 0.2 Mg/Ml Vial IV PUSH 0.1 mg Q4H PRN Administration secretions Morphine Sulfate 50 mg/ Sodium 100 mls @ 2 mls/hr 04/07/22 16:45 04/07/22 16:42 Chloride IV CONT 1 mg/hr .Q24H TUCKER 2 mls/hr Administration 1 MG/HR Lorazepam 1 mg 04/07/22 16:17 04/07/22 20:04 Lorazepam Inj (*Crx) 2 Mg/Ml Vial IV PUSH 1 mg Q2H PRN Administration ANXIETY/RESTLESSNESS Morphine Sulfate 2 mg 04/07/22 16:16 04/07/22 20:03 Morphine Sulfate (*Crx) 2 Mg/Ml Inj IV PUSH 2 mg Q1H PRN Administration Pain Prochlorperazine Edisylate 10 mg 04/07/22 16:15 Prochlorperazine Edisylate 10 Mg/2 Ml Vial IV PUSH Q6H PRN Nausea And Vomiting
[2022-04-08] MEDS: MORPHINE SULFATE INJ (*CRX) 50 MG in SODIUM CHLORIDE 0.9% IV 95 ML IV CONT (16:51)
[2022-04-08 20:00] VITALS: PULSE 92; RESP 16; O2SAT 94
[2022-04-08 20:38] VITALS: BP 86/56; PULSE 92; RESP 16; TEMP 36.6; O2SAT 94
[2022-04-09 14:00] VITALS: BP 113/60; PULSE 86; RESP 20; TEMP 35.8; O2SAT 91
--- NOTE | 2022-04-09 17:43 | PM.IMPN ---
Progress Note: A&P Assessment and Plan (1) Palliative care by specialist: Code(s): Z51.5 - Encounter for palliative care Status: Acute Assessment and Plan: Meets inpatient hospice criteria due to requiring continuous IV morphine for control of post-extubation dyspnea Remainder of palliative regimen as ordered (2) Anoxic brain injury: Code(s): G93.1 - Anoxic brain damage, not elsewhere classified Status: Acute (3) Cardiac arrest: Code(s): I46.9 - Cardiac arrest, cause unspecified Status: Acute (4) Ventricular fibrillation: Code(s): I49.01 - Ventricular fibrillation Status: Acute (5) Paroxysmal atrial fibrillation: Code(s): I48.0 - Paroxysmal atrial fibrillation Status: Acute (6) Acute kidney injury: Code(s): N17.9 - Acute kidney failure, unspecified Status: Acute (7) Hypertension: Qualifiers: Hypertension type: unspecified Qualified Code(s): I10 - Essential (primary) hypertension Code(s): I10 - Essential (primary) hypertension Status: Acute (8) ST elevation [place] (STEMI): Qualifiers: Involved coronary artery: unspecified coronary artery Qualified Code(s): I21.3 - ST elevation (STEMI) myocardial infarction of unspecified site Code(s): I21.3 - ST elevation (STEMI) myocardial infarction of unspecified site Status: Acute (9) Acute respiratory failure: Qualifiers: Respiratory failure complication: unspecified whether with hypoxia or hypercapnia Qualified Code(s): J96.00 - Acute respiratory failure, unspecified whether with hypoxia or hypercapnia Code(s): J96.00 - Acute respiratory failure, unspecified whether with hypoxia or hypercapnia Status: Acute Subjective Date/time seen: 04/09/22 17:43 Interval history: 04/09 visit. Remains comfortable. Review of Systems Review of Systems: ROS unobtainable: Yes unobtainable due to medical condition Exam Narrative: No JVD Chest coarse BS, snoring respirations Heart RR Abd hypoactive BS Extr cool Neuro CN symmetric to visual inspection, no response to noxious stimuli Objective Data Vital Signs Vital Signs: Vital Signs - 24 hr 04/08/22 20:00 04/08/22 20:38 04/09/22 14:00 Temperature 97.9 F 96.4 F L Pulse Rate 92 92 86 Respiratory Rate 16 16 20 Blood Pressure 86/56 L 113/60 Pulse Oximetry 94 94 91 Intake/Output Intake/Output: Intake & Output 04/06/22 04/07/22 04/08/22 04/09/22 23:59 23:59 23:59 23:59 Intake Total 0 100 Output Total 475 750 250 Balance -475 -650 -250 Meds/Results Medications: Active Medications Generic Name Dose Route Start Last Admin Trade Name Freq PRN Reason Stop Dose Admin Artificial Tears 1 drop 04/07/22 16:15 Artificial Tears Ophth Soln 15 Ml Bottle EACH EYE Q12H PRN Dry Eye(s) Bisacodyl 10 mg 04/07/22 16:15 Bisacodyl 10 Mg Suppository RECTAL DAILY PRN Constipation Glycopyrrolate 0.1 mg 04/07/22 16:15 04/08/22 12:03 Glycopyrrolate Inj (*Sp) 0.2 Mg/Ml Vial IV PUSH 0.1 mg Q4H PRN Administration secretions Morphine Sulfate 50 mg/ Sodium 100 mls @ 2 mls/hr 04/07/22 16:45 04/08/22 16:51 Chloride IV CONT 1 mg/hr .Q24H TUCKER 2 mls/hr Administration 1 MG/HR Lorazepam 1 mg 04/07/22 16:17 04/07/22 20:04 Lorazepam Inj (*Crx) 2 Mg/Ml Vial IV PUSH 1 mg Q2H PRN Administration ANXIETY/RESTLESSNESS Morphine Sulfate 2 mg 04/07/22 16:16 04/07/22 20:03 Morphine Sulfate (*Crx) 2 Mg/Ml Inj IV PUSH 2 mg Q1H PRN Administration Pain Prochlorperazine Edisylate 10 mg 04/07/22 16:15 Prochlorperazine Edisylate 10 Mg/2 Ml Vial IV PUSH Q6H PRN Nausea And Vomiting
[2022-04-09 20:00] VITALS: PULSE 86; RESP 20; O2SAT 91
[2022-04-09] MEDS: MORPHINE SULFATE INJ (*CRX) 50 MG in SODIUM CHLORIDE 0.9% IV 95 ML IV CONT (20:03)
[2022-04-09 22:00] VITALS: BP 100/68; PULSE 81; RESP 16; TEMP 36.3; O2SAT 95
[2022-04-10] MEDS: GLYCOPYRROLATE INJ (*SP) 0.2 MG/ML VIAL 0.1 MG IV PUSH (09:39)
--- NOTE | 2022-04-10 11:18 | PM.IMPN ---
Progress Note: A&P Assessment and Plan (1) Palliative care by specialist: Code(s): Z51.5 - Encounter for palliative care Status: Acute Assessment and Plan: Meets inpatient hospice criteria due to requiring continuous IV morphine for control of post-extubation dyspnea Remainder of palliative regimen as ordered (2) Anoxic brain injury: Code(s): G93.1 - Anoxic brain damage, not elsewhere classified Status: Acute (3) Cardiac arrest: Code(s): I46.9 - Cardiac arrest, cause unspecified Status: Acute (4) Ventricular fibrillation: Code(s): I49.01 - Ventricular fibrillation Status: Acute (5) Paroxysmal atrial fibrillation: Code(s): I48.0 - Paroxysmal atrial fibrillation Status: Acute (6) Acute kidney injury: Code(s): N17.9 - Acute kidney failure, unspecified Status: Acute (7) Hypertension: Qualifiers: Hypertension type: unspecified Qualified Code(s): I10 - Essential (primary) hypertension Code(s): I10 - Essential (primary) hypertension Status: Acute (8) ST elevation [place] (STEMI): Qualifiers: Involved coronary artery: unspecified coronary artery Qualified Code(s): I21.3 - ST elevation (STEMI) myocardial infarction of unspecified site Code(s): I21.3 - ST elevation (STEMI) myocardial infarction of unspecified site Status: Acute (9) Acute respiratory failure: Qualifiers: Respiratory failure complication: unspecified whether with hypoxia or hypercapnia Qualified Code(s): J96.00 - Acute respiratory failure, unspecified whether with hypoxia or hypercapnia Code(s): J96.00 - Acute respiratory failure, unspecified whether with hypoxia or hypercapnia Status: Acute Subjective Date/time seen: 04/10/22 11:18 Interval history: 04/10 visit. Remains comfortable. Review of Systems Review of Systems: ROS unobtainable: Yes unobtainable due to medical condition Exam Narrative: No JVD Chest coarse BS, snoring respirations Heart RR Abd hypoactive BS Extr cool Neuro CN symmetric to visual inspection, no response to noxious stimuli Objective Data Vital Signs Vital Signs: Vital Signs - 24 hr 04/09/22 14:00 04/09/22 20:00 04/09/22 22:00 Temperature 96.4 F L 97.4 F L Pulse Rate 86 86 81 Respiratory Rate 20 20 16 Blood Pressure 113/60 100/68 Pulse Oximetry 91 91 95 Intake/Output Intake/Output: Intake & Output 04/07/22 04/08/22 04/09/22 04/10/22 23:59 23:59 23:59 23:59 Intake Total 0 100 100 0 Output Total 475 750 450 150 Balance -475 -650 -350 -150 Meds/Results Medications: Active Medications Generic Name Dose Route Start Last Admin Trade Name Freq PRN Reason Stop Dose Admin Artificial Tears 1 drop 04/07/22 16:15 Artificial Tears Ophth Soln 15 Ml Bottle EACH EYE Q12H PRN Dry Eye(s) Bisacodyl 10 mg 04/07/22 16:15 Bisacodyl 10 Mg Suppository RECTAL DAILY PRN Constipation Glycopyrrolate 0.1 mg 04/07/22 16:15 04/10/22 09:39 Glycopyrrolate Inj (*Sp) 0.2 Mg/Ml Vial IV PUSH 0.1 mg Q4H PRN Administration secretions Morphine Sulfate 50 mg/ Sodium 100 mls @ 2 mls/hr 04/07/22 16:45 04/09/22 20:03 Chloride IV CONT 1 mg/hr .Q24H TUCKER 2 mls/hr Administration 1 MG/HR Lorazepam 1 mg 04/07/22 16:17 04/07/22 20:04 Lorazepam Inj (*Crx) 2 Mg/Ml Vial IV PUSH 1 mg Q2H PRN Administration ANXIETY/RESTLESSNESS Morphine Sulfate 2 mg 04/07/22 16:16 04/07/22 20:03 Morphine Sulfate (*Crx) 2 Mg/Ml Inj IV PUSH 2 mg Q1H PRN Administration Pain Prochlorperazine Edisylate 10 mg 04/07/22 16:15 Prochlorperazine Edisylate 10 Mg/2 Ml Vial IV PUSH Q6H PRN Nausea And Vomiting
[2022-04-10 15:59] VITALS: BP 86/48; PULSE 92; RESP 20; TEMP 36.1; O2SAT 94
[2022-04-10 20:05] VITALS: BP 95/49; PULSE 86; RESP 20; TEMP 37.2; O2SAT 93
[2022-04-10] MEDS: MORPHINE SULFATE INJ (*CRX) 50 MG in SODIUM CHLORIDE 0.9% IV 95 ML IV CONT (21:51)
--- NOTE | 2022-04-11 11:12 | PM.IMPN ---
Progress Note: A&P Assessment and Plan (1) Palliative care by specialist: Code(s): Z51.5 - Encounter for palliative care Status: Acute Assessment and Plan: Meets inpatient hospice criteria due to requiring continuous IV morphine for control of post-extubation dyspnea Remainder of palliative regimen as ordered (2) Anoxic brain injury: Code(s): G93.1 - Anoxic brain damage, not elsewhere classified Status: Acute (3) Cardiac arrest: Code(s): I46.9 - Cardiac arrest, cause unspecified Status: Acute (4) Ventricular fibrillation: Code(s): I49.01 - Ventricular fibrillation Status: Acute (5) Paroxysmal atrial fibrillation: Code(s): I48.0 - Paroxysmal atrial fibrillation Status: Acute (6) Acute kidney injury: Code(s): N17.9 - Acute kidney failure, unspecified Status: Acute (7) Hypertension: Qualifiers: Hypertension type: unspecified Qualified Code(s): I10 - Essential (primary) hypertension Code(s): I10 - Essential (primary) hypertension Status: Acute (8) ST elevation [place] (STEMI): Qualifiers: Involved coronary artery: unspecified coronary artery Qualified Code(s): I21.3 - ST elevation (STEMI) myocardial infarction of unspecified site Code(s): I21.3 - ST elevation (STEMI) myocardial infarction of unspecified site Status: Acute (9) Acute respiratory failure: Qualifiers: Respiratory failure complication: unspecified whether with hypoxia or hypercapnia Qualified Code(s): J96.00 - Acute respiratory failure, unspecified whether with hypoxia or hypercapnia Code(s): J96.00 - Acute respiratory failure, unspecified whether with hypoxia or hypercapnia Status: Acute Subjective Date/time seen: 04/11/22 11:12 Interval history: 04/11 visit. Remains comfortable. Review of Systems Review of Systems: ROS unobtainable: Yes unobtainable due to medical condition Exam Narrative: No JVD Chest coarse BS, snoring respirations Heart RR Abd hypoactive BS Extr cool Neuro CN symmetric to visual inspection, no response to noxious stimuli Objective Data Vital Signs Vital Signs: Vital Signs - 24 hr 04/10/22 15:59 04/10/22 20:05 Temperature 97.0 F L 99 F Pulse Rate 92 86 Respiratory Rate 20 20 Blood Pressure 86/48 L 95/49 L Pulse Oximetry 94 93 Intake/Output Intake/Output: Intake & Output 04/08/22 04/09/22 04/10/22 04/11/22 23:59 23:59 23:59 23:59 Intake Total 100 100 56.4 Output Total 750 450 400 350 Balance -650 -350 -343.6 -350 Meds/Results Medications: Active Medications Generic Name Dose Route Start Last Admin Trade Name Freq PRN Reason Stop Dose Admin Artificial Tears 1 drop 04/07/22 16:15 Artificial Tears Ophth Soln 15 Ml Bottle EACH EYE Q12H PRN Dry Eye(s) Bisacodyl 10 mg 04/07/22 16:15 Bisacodyl 10 Mg Suppository RECTAL DAILY PRN Constipation Glycopyrrolate 0.1 mg 04/07/22 16:15 04/10/22 09:39 Glycopyrrolate Inj (*Sp) 0.2 Mg/Ml Vial IV PUSH 0.1 mg Q4H PRN Administration secretions Morphine Sulfate 50 mg/ Sodium 100 mls @ 2 mls/hr 04/07/22 16:45 04/10/22 21:51 Chloride IV CONT 1 mg/hr .Q24H TUCKER 2 mls/hr Administration 1 MG/HR Lorazepam 1 mg 04/07/22 16:17 04/07/22 20:04 Lorazepam Inj (*Crx) 2 Mg/Ml Vial IV PUSH 1 mg Q2H PRN Administration ANXIETY/RESTLESSNESS Morphine Sulfate 2 mg 04/07/22 16:16 04/07/22 20:03 Morphine Sulfate (*Crx) 2 Mg/Ml Inj IV PUSH 2 mg Q1H PRN Administration Pain Prochlorperazine Edisylate 10 mg 04/07/22 16:15 Prochlorperazine Edisylate 10 Mg/2 Ml Vial IV PUSH Q6H PRN Nausea And Vomiting
[2022-04-11] MEDS: GLYCOPYRROLATE INJ (*SP) 0.2 MG/ML VIAL 0.1 MG IV PUSH (16:33)
[2022-04-11 17:54] VITALS: BP 111/64; PULSE 122; RESP 22; O2SAT 99
[2022-04-11 19:55] VITALS: BP 115/74; PULSE 95; RESP 22; TEMP 36.6; O2SAT 96
[2022-04-11] MEDS: MORPHINE SULFATE INJ (*CRX) 50 MG in SODIUM CHLORIDE 0.9% IV 95 ML IV CONT (21:59)
[2022-04-12] MEDS: GLYCOPYRROLATE INJ (*SP) 0.2 MG/ML VIAL 0.1 MG IV PUSH ×3 (04:57→14:18)
[2022-04-12] MEDS: MORPHINE SULFATE (*CRX) 2 MG/ML INJ 4 MG IV PUSH (04:58)
[2022-04-12 14:47] VITALS: BP 106/76; PULSE 56; RESP 18; TEMP 37; O2SAT 95
--- NOTE | 2022-04-12 16:45 | WPDPN ---
Progress Note: A&P Assessment and Plan (1) Palliative care by specialist: Code(s): Z51.5 - Encounter for palliative care Status: Acute Assessment and Plan: Meets inpatient hospice criteria due to requiring continuous IV morphine for control of post-extubation dyspnea Remainder of palliative regimen as ordered (2) Anoxic brain injury: Code(s): G93.1 - Anoxic brain damage, not elsewhere classified Status: Acute (3) Cardiac arrest: Code(s): I46.9 - Cardiac arrest, cause unspecified Status: Acute (4) Ventricular fibrillation: Code(s): I49.01 - Ventricular fibrillation Status: Acute (5) Paroxysmal atrial fibrillation: Code(s): I48.0 - Paroxysmal atrial fibrillation Status: Acute (6) Acute kidney injury: Code(s): N17.9 - Acute kidney failure, unspecified Status: Acute (7) Hypertension: Qualifiers: Hypertension type: unspecified Qualified Code(s): I10 - Essential (primary) hypertension Code(s): I10 - Essential (primary) hypertension Status: Acute (8) ST elevation [place] (STEMI): Qualifiers: Involved coronary artery: unspecified coronary artery Qualified Code(s): I21.3 - ST elevation (STEMI) myocardial infarction of unspecified site Code(s): I21.3 - ST elevation (STEMI) myocardial infarction of unspecified site Status: Acute (9) Acute respiratory failure: Qualifiers: Respiratory failure complication: unspecified whether with hypoxia or hypercapnia Qualified Code(s): J96.00 - Acute respiratory failure, unspecified whether with hypoxia or hypercapnia Code(s): J96.00 - Acute respiratory failure, unspecified whether with hypoxia or hypercapnia Status: Acute Subjective Date/time seen: 04/12/22 1420 Interval history: 04/11 visit. Remains comfortable. 04/12 visit: Patient remains comfortable and non-responsive. IV continuous morphine was increased yesterday from 1mg/hr to 2mg/hr and her prn IV push morphine was increased to 4mg q1h. Getting glycopyrrolate on a consistent basis due to excess secretions. Review of Systems Review of Systems: ROS unobtainable: Yes unobtainable due to medical condition Exam Narrative: No JVD Chest coarse BS, snoring respirations Heart RR Abd hypoactive BS Extr cool Neuro CN symmetric to visual inspection, no response to noxious stimuli Objective Data Vital Signs Vital Signs: Vital Signs - 24 hr 04/11/22 17:54 04/11/22 19:55 04/12/22 14:47 Temperature 36.6 C 37.0 C Pulse Rate 122 H 95 56 L Respiratory Rate 22 H 22 H 18 Blood Pressure 111/64 115/74 106/76 Pulse Oximetry 99 96 95 Intake/Output Intake/Output: Intake & Output 04/09/22 04/10/22 04/11/22 04/12/22 23:59 23:59 23:59 23:59 Intake Total 100 56.4 68 Output Total 450 400 650 300 Balance -350 -343.6 -582 -300 Meds/Results Medications: Active Medications Generic Name Dose Route Start Last Admin Trade Name Freq PRN Reason Stop Dose Admin Artificial Tears 1 drop 04/07/22 16:15 Artificial Tears Ophth Soln 15 Ml Bottle EACH EYE Q12H PRN Dry Eye(s) Bisacodyl 10 mg 04/07/22 16:15 Bisacodyl 10 Mg Suppository RECTAL DAILY PRN Constipation Glycopyrrolate 0.1 mg 04/07/22 16:15 04/12/22 14:18 Glycopyrrolate Inj (*Sp) 0.2 Mg/Ml Vial IV PUSH 0.1 mg Q4H PRN Administration secretions Morphine Sulfate 50 mg/ Sodium 100 mls @ 4 mls/hr 04/07/22 16:45 04/11/22 21:59 Chloride IV CONT 2 mg/hr .Q24H TUCKER 4 mls/hr Administration 2 MG/HR Lorazepam 1 mg 04/07/22 16:17 04/07/22 20:04 Lorazepam Inj (*Crx) 2 Mg/Ml Vial IV PUSH 1 mg Q2H PRN Administration ANXIETY/RESTLESSNESS Morphine Sulfate 4 mg 04/11/22 16:50 04/12/22 04:58 Morphine Sulfate (*Crx) 2 Mg/Ml Inj IV PUSH 4 mg Q1H PRN Administration Pain Prochlorperazine Edisylate 10 mg 04/07/22 16:15 Prochlorperazine Edisyla
[2022-04-12 20:00] VITALS: PULSE 75; RESP 20; O2SAT 94
[2022-04-12 20:12] VITALS: BP 93/62; PULSE 75; RESP 20; TEMP 37.4; O2SAT 94
[2022-04-12] MEDS: MORPHINE SULFATE INJ (*CRX) 50 MG in SODIUM CHLORIDE 0.9% IV 95 ML IV CONT (21:14)
[2022-04-13 08:00] VITALS: PULSE 75; RESP 20; O2SAT 94
--- NOTE | 2022-04-13 11:26 | PC.NURSE ---
Patient passed at 0945. Body prepared and transported to [facility] by RN, Charge, and PCT concluding at [id number]
--- NOTE | 2022-04-13 20:18 | PC.NURSE ---
2014 [facility] RETURNED CALL AND STATED THAT THEY HAVE BEEN UNABLE TO RE-CONNECT WITH FAMILY ABOUT ORGAN DONATION. STATED THAT PATIENT BODY COULD BE RELEASED TO HOME, AND THEY WOULD DEAL DIRECT WITH THEM NOW. INFORMED THAT IT WILL BE [facility] IN [facility].
--- NOTE | 2022-04-13 20:19 | PC.NURSE ---
[facility] INFORMED OF PATIENT .
--- NOTE | 2022-04-21 14:47 | PM.DDS ---
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 Medications titrated to comfort. She peacefully. Additional Data Confirmation of as documented by pronouncing clinician: Pupillary Reflex, Palpable Pulses, Response to Stimuli, Heart Tones and Breath Sounds Name of Provider Notified: Dr. Paniagua Time Provider Notified: 09:55 Provider Requests Autopsy: No Family Requests Autopsy: No Chemical Handler Notified: Yes Date [facility] Notified of : 04/13/22 Time [facility] Notified of : 10:35
== END 2022-04-13 13:09 | disposition expired | DRG 951 ==
LOC: ANH3MED 04-08 15:39 → ANHICU 04-15 15:27
PROVIDERS: Admitting Provider Internal Medicine; PCP Internal Medicine; Visit Provider Internal Medicine
DX: Z51.5 Encounter for palliative care (principal); J96.00 Acute respiratory failure, unspecified whether with hypoxia or hypercapnia; I21.3 ST elevation (STEMI) myocardial infarction of unspecified site; G93.1 Anoxic brain damage, not elsewhere classified; N17.9 Acute kidney failure, unspecified; I49.01 Ventricular fibrillation; I46.9 Cardiac arrest, cause unspecified; I48.0 Paroxysmal atrial fibrillation; I10 Essential (primary) hypertension
CPT/HCPCS: A9270; J2060; J2270